=== PATIENT | female | born 1975 | race Caucasian/White ===

== ENCOUNTER 2019-08-04 00:30 | Outpatient (CLI) | payer OTHER, SELFPAY ==
[2019-08-05 08:27] LABS: SARS-CoV-2 RNA PCR Negative
== END 2019-08-04 00:31 | disposition home or self-care (01) ==
LOC: ANHCOVIDDT 00:30
PROVIDERS: PCP Internal Medicine; Visit Provider Internal Medicine Gastroenterology
DX: Z01.818 Encounter for other preprocedural examination (principal); Z11.59 Encounter for screening for other viral diseases
CPT/HCPCS: 87635; C9803; U0003

== ENCOUNTER 2019-08-07 01:22 | Day surgery (SDC) | payer OTHER, SELFPAY ==
[2019-08-03 10:45] VITALS: BMI 31.0
[2019-08-07] MEDS: LACTATED RINGERS 1,000 ML 150 ML IV CONT (07:58)
[2019-08-07 08:08] VITALS: BP 110/75; PULSE 85; RESP 16; TEMP 36.6; O2SAT 98; BMI 31.4
--- NOTE | 2019-08-07 08:38 | P.PNAN_ITS ---
Anes - Initial Pre Proc Eval Procedure: Operation Date: 08/07/19 09:00 Proposed Procedures p Esophagogastroduodenoscopy - John Guzman MD Date/Time: 08/07/19 08:38 Surgeon: John Guzman MD Pre Op Diagnosis: GERD Patient Data Age: 44 Gender: F Height: 1.63 m Weight: 83 kg Last Vital Signs Temp 36.6 C 08/07/19 08:08 Pulse 85 08/07/19 08:08 Resp 16 08/07/19 08:08 BP 110/75 08/07/19 08:08 Pulse Ox 98 08/07/19 08:08 Allergies Allergy/AdvReac Type Severity Reaction Status Date / Time Penicillins Allergy Other Verified 08/07/19 07:52 prochlorperazine Allergy Other Verified 08/07/19 07:52 [From Compazine] Home Medications Medication Instructions Recorded Confirmed Type atorvastatin 40 mg tablet 40 mg PO DAILY 03/17/19 08/07/19 History calcium carbonate 200 mg calcium 200 mg PO DAILY tablet 03/17/19 08/07/19 History (500 mg) chewable tablet cholecalciferol (vitamin D3) 25 25 mcg PO DAILY 03/17/19 08/07/19 History mcg (1,000 unit) capsule lansoprazole 30 mg capsule,delayed 30 mg PO DAILY 03/17/19 08/03/19 History release vitamin B complex 1 tablet PO DAILY 03/17/19 08/03/19 History Multiple Vitamins 1 caplet PO DAILY 08/03/19 08/03/19 History acidophilus-pectin, citrus 1 cap PO DAILY 08/03/19 08/07/19 History [Acidophilus Probiotic] cetirizine [Zyrtec] 10 mg PO DAILY 08/03/19 08/07/19 History escitalopram oxalate [Lexapro] 10 mg PO DAILY 08/03/19 08/07/19 History famotidine 20 mg PO BID 08/03/19 08/07/19 History fluticasone propionate [Flonase 2 spray INTRANASAL DAILY 08/03/19 08/07/19 History Allergy Relief] hydroxyzine HCl 25 mg PO DAILY 08/03/19 08/03/19 History mecobalamin (vitamin B12) [B12 1,000 mcg PO DAILY 05/18/20 05/18/20 History Active] Patient hx anesthesia problems: none Family hx anesthesia problems: none [facility] Past Medical History Medical History (Updated 08/07/19 @ 08:40 by Eulogio Lyons MD) Chronic back pain GERD (gastroesophageal reflux disease) Hyperlipidemia Obesity Pancreatitis Surgical History Surgical History (Updated 03/17/19 @ 10:57 by Karla Bhatia, JORDEN) History of ERCP caused by pancreatitis History of knee replacement right knee 11/1994 and left knee 03/1995 Social History Social History (Updated 03/17/19 @ 10:57 by Karla Bhatia RN) Smoking status: Never smoker Alcohol intake: current Drinks per week: 3 Anes - Eval Final PreProcedure Day of Procedure 08/07/19 08:38 Patient weight: obese Heart: regular rate and rhythm Lungs: clear to auscultation and normal air movement Airway: Mallampati scale class II Neurological: alert and oriented Last oral intake: >/= 8 hours ASA classification: II Emergent: no Anesthetic plan: proceed Anesthesia type and monitoring: general GIVS Informed Consent: The patient's anesthetic plan and its attendant risks and benefits were discussed with the patient/family/POA. Questions were solicited and answers provided to the satisfaction of the patient/family/POA.
--- NOTE | 2019-08-07 08:44 | WPDGICN ---
Assessment and Plan Assessment and plan (1) GERD (gastroesophageal reflux disease): Code(s): K21.9 - Gastro-esophageal reflux disease without esophagitis Status: Acute Assessment and Plan: Patient has ongoing acid reflux. Only partially controlled with famotidine 20 mg p.o. b.i.d.. Patient intolerant of Prilosec because memory issues. Plan is for EGD to assess her long-term acid reflux symptoms. Also to determine best medication for this condition. GI Consult Note Consult date/time: 08/07/19 08:44 HPI: Pattie Prince is a 44 year old female Seen in of evaluation at the request of Dr. Alexandra Tobias. patient has a long standing history of GE reflux disease. Complaints of acid reflux nocturnal regurgitation of been noted. Previously she was on Prilosec daily with good control symptoms. This medication was discontinued 6 months ago because of memory issues. Memory issues have resolved. Over the intervening 6 months she has been on famotidine twice a day. She continues to have epigastric discomfort. No longer has nocturnal regurgitation. But does have epigastric discomfort. No dysphagia but she does have epigastric fullness. Family history is noncontributory. Review of Systems Review of Systems: All systems reviewed & are unremarkable except as noted in HPI and below PMFSH Past Medical History Medical History Chronic back pain GERD (gastroesophageal reflux disease) Hyperlipidemia Obesity Pancreatitis Surgical History Surgical History History of ERCP caused by pancreatitis History of knee replacement right knee 11/1994 and left knee 03/1995 Social History Social History Smoking status: Never smoker Alcohol intake: current Drinks per week: 3 Meds Home Medications and Allergies Home Medications Medication Instructions Recorded Confirmed Type atorvastatin 40 mg tablet 40 mg PO DAILY 03/17/19 08/07/19 History calcium carbonate 200 mg calcium 200 mg PO DAILY tablet 03/17/19 08/07/19 History (500 mg) chewable tablet cholecalciferol (vitamin D3) 25 25 mcg PO DAILY 03/17/19 08/07/19 History mcg (1,000 unit) capsule lansoprazole 30 mg capsule,delayed 30 mg PO DAILY 03/17/19 08/03/19 History release vitamin B complex 1 tablet PO DAILY 03/17/19 08/03/19 History Multiple Vitamins 1 caplet PO DAILY 08/03/19 08/03/19 History acidophilus-pectin, citrus 1 cap PO DAILY 08/03/19 08/07/19 History [Acidophilus Probiotic] cetirizine [Zyrtec] 10 mg PO DAILY 08/03/19 08/07/19 History escitalopram oxalate [Lexapro] 10 mg PO DAILY 08/03/19 08/07/19 History famotidine 20 mg PO BID 08/03/19 08/07/19 History fluticasone propionate [Flonase 2 spray INTRANASAL DAILY 08/03/19 08/07/19 History Allergy Relief] hydroxyzine HCl 25 mg PO DAILY 08/03/19 08/03/19 History mecobalamin (vitamin B12) [B12 1,000 mcg PO DAILY 08/03/19 08/03/19 History Active] Allergies Allergy/AdvReac Type Severity Reaction Status Date / Time Penicillins Allergy Other Verified 08/07/19 07:52 prochlorperazine Allergy Other Verified 08/07/19 07:52 [From Compazine] Vital Signs Vital Signs - 24 hr 08/07/19 08:08 Temperature 36.6 C Pulse Rate 85 Respiratory Rate 16 Blood Pressure 110/75 Pulse Oximetry 98 Exam Narrative: Exam Narrative: Physical exam reveals her to be alert. Oriented x3. She is anicteric. Lungs are clear to auscultation and percussion. Heart is without murmur or extra sounds. Abdominal exam bowel sounds are present soft mild epigastric tenderness is noted. No masses noted. Rectal exam is deferred at this time.
[2019-08-07] MEDS: BENZOCAINE (*SP) 60 ML SPRAY CAN (HURRICAINE) 1 SPRAY MUCOUS MEM (09:16)
[2019-08-07 09:27] VITALS: BP 103/67; PULSE 82; RESP 20; O2SAT 99
[2019-08-07 09:37] VITALS: BP 111/69; PULSE 83; RESP 18; O2SAT 100
[2019-08-07 09:47] VITALS: BP 112/69; PULSE 74; RESP 20; O2SAT 98
[2019-08-07 09:57] VITALS: BP 113/62; PULSE 76; RESP 18; O2SAT 99
== END 2019-08-07 10:25 | disposition home or self-care (01) ==
PROVIDERS: PCP Internal Medicine; Visit Provider Internal Medicine Gastroenterology
PROC: 0DJ08ZZ Inspection of Upper Intestinal Tract, Via Natural or Artificial Opening Endoscopic (ICD-10-PCS; CPT 43235; principal; 2019-08-07 09:00)
DX: K21.9 Gastro-esophageal reflux disease without esophagitis (principal); K31.7 Polyp of stomach and duodenum; E78.5 Hyperlipidemia, unspecified; E66.9 Obesity, unspecified; Z68.31 Body mass index [BMI] 31.0-31.9, adult
CPT/HCPCS: 43239; 43251; 87081; 88305; J2704; J7120

== ENCOUNTER 2019-12-02 15:23 | Emergency (ER) | payer OTHER, SELFPAY ==
--- NOTE | ~2019-12-02 | US_ITS ---
EXAMINATION: US right upper quadrant DATE: 12/02/2019 18:25 INDICATION: Abdominal pain. TECHNIQUE: Multiple grayscale and Doppler ultrasound images of the abdomen were obtained. COMPARISON: None FINDINGS: The visualized portions of the head and body of the pancreas are normal. The liver is linda l without focal lesion. There is normal flow in main portal vein. The gallbladder is contracted and c ontains sludge. No gallstones or gallbladder wall thickening. There was a positive sonographic Mcdonald sign. The common duct is normal and measures 3 mm. IMPRESSION: 1. Gallbladder sludge and positive sonographic Mcdonald sign, but no imaging findings to suggest acute cholecystitis. Reviewed, dictated and finalized at location A. IMPRESSION: 1. Gallbladder sludge and positive sonographic Mcdonald sign, but no imaging find ings to suggest acute cholecystitis.
[2019-12-02 15:52] VITALS: BP 120/77; PULSE 83; RESP 16; TEMP 36; O2SAT 100
[2019-12-02 16:22] LABS: Basophils Percent Auto 0.3 % (0.2-1.2); Eosinophils Absolute Auto 0.1 K/mm3 (0-0.3); Eosinophils Percent Auto 1.6 % (0-4.4); Hematocrit 36.3 % (37.0-47.0); Hemoglobin 12.8 g/dL (12.0-15.0); Immature Granulocyte Absolute 0.01 K/mm3 (0.00-0.031); Immature Granulocyte Percent A 0.1 % (0-0.5); Lymphocytes Absolute Auto 2.41 K/mm3 (0.9-3.2); Lymphocytes Percent Auto 35.7 % (18.3-44.2); Mean Corpuscular HGB Conc 35.3 g/dl (32-36); Mean Corpuscular Hemoglobin 33.7 pg (26-34); Mean Corpuscular Volume 95.5 fl (80-100); Mean Platelet Volume 10.5 fl (7.4-10.4); Monocytes Absolute Auto 0.4 K/mm3 (0.1-0.6); Monocytes Percent Auto 5.2 % (2.6-8.5); Neutrophils Absolute Auto 3.9 K/mm3 (1.3-6.7); Neutrophils Percent Auto 57.1 % (45.5-73.1); Platelet Count Result 255 k/mm3 (150-375); Red Cell Distribution Width 12.7 % (11.5-14.5); White Blood Count 6.8 K/mm3 (4.5-10.0)
[2019-12-02 16:24] LABS: Add Urine Microscopic? NO; Appearance Urine Clear (Clear); Bilirubin Urine Negative (Negative); Blood Urine Negative (Negative); Color Urine Yellow (Yellow); Glucose Urine UA Negative (Negative); Ketones Urine Negative (Negative); Leukocyte Esterase Ur Negative LEU/UL (Negative); Nitrate Urine Negative (Negative); Protein Urine Negative (Negative); Urobilinogen Urine Negative mg/dL (<2.0)
[2019-12-02 16:36] LABS: Alanine Aminotransferase 19 U/L (4-35); Albumin Level 4.4 g/dL (3.5-5.1); Alkaline Phosphatase 79 U/L (38-126); Anion Gap 7 mmol/L (8-16); Aspartate Amino Transferase 25 U/L (14-36); Bilirubin,Total 0.6 mg/dL (0.2-1.3); Blood Urea Nitrogen 7 mg/dL (7-17); Calcium 9.2 mg/dL (8.4-10.2); Carbon Dioxide 26 mmol/L (22-30); Chloride 104 mmol/L (98-107); Estimated CRCL calculation 107 ml/min; Estimated Glomerular Filt Rate > 60; Glucose 90 mg/dL (65-105); Lipase 85 U/L (23-300); Potassium 3.8 mmol/L (3.4-5.0); Sodium 137 mmol/L (137-145)
[2019-12-02 17:43] VITALS: BP 139/79; PULSE 79; RESP 17; O2SAT 99
--- NOTE | 2019-12-02 17:46 | ED.ABDPAIN ---
HPI - Abdominal Pain General Chief Complaint: Abdominal Pain Stated Complaint: upper r abd pain Time Seen by Provider: 12/02/19 17:37 Source: patient Mode of arrival: ambulatory Limitations: no limitations History of Present Illness HPI narrative: Patient is a 44-year-old female who presents with right upper quadrant abdominal pain that is remained constant for 2 days has not taken anything for her symptoms presents in no distress pain does not radiate. Patient does have history of irritable bowel syndrome and has had similar occurrences in the past has not had them in a very long time. Patient does note having had recent normal endoscopy. Patient notes nausea but denies emesis diarrhea or other complaints and presents in no distress Related Data Home Medications Medication Instructions Recorded Confirmed atorvastatin 40 mg tablet 40 mg PO DAILY 03/17/19 08/07/19 calcium carbonate 200 mg calcium 200 mg PO DAILY tablet 03/17/19 08/07/19 (500 mg) chewable tablet cholecalciferol (vitamin D3) 25 25 mcg PO DAILY 03/17/19 08/07/19 mcg (1,000 unit) capsule lansoprazole 30 mg capsule,delayed 30 mg PO DAILY 03/17/19 08/03/19 release vitamin B complex 1 tablet PO DAILY 03/17/19 08/03/19 Multiple Vitamins 1 caplet PO DAILY 08/03/19 08/03/19 acidophilus-pectin, citrus 1 cap PO DAILY 08/03/19 08/07/19 [Acidophilus Probiotic] cetirizine [Zyrtec] 10 mg PO DAILY 08/03/19 08/07/19 escitalopram oxalate [Lexapro] 10 mg PO DAILY 08/03/19 08/07/19 famotidine 20 mg PO BID 08/03/19 08/07/19 fluticasone propionate [Flonase 2 spray INTRANASAL DAILY 08/03/19 08/07/19 Allergy Relief] hydroxyzine HCl 25 mg PO DAILY 08/03/19 08/03/19 mecobalamin (vitamin B12) [B12 1,000 mcg PO DAILY 08/03/19 08/03/19 Active] Allergies Allergy/AdvReac Type Severity Reaction Status Date / Time Penicillins Allergy Other Verified 08/07/19 07:52 prochlorperazine Allergy Other Verified 08/07/19 07:52 [From Compazine] Review of Systems Review of Systems: All systems reviewed & are unremarkable except as noted in HPI and below PMFSH Past Medical History Medical History Chronic back pain GERD (gastroesophageal reflux disease) Hyperlipidemia Obesity Pancreatitis Surgical History Surgical History History of ERCP caused by pancreatitis History of knee replacement right knee 11/1994 and left knee 03/1995 Social History Social History Smoking status: Never smoker Alcohol intake: current Drinks per week: 3 Gender identity (if verbalized by the patient): Female Exam Narrative: Exam Narrative: GENERAL: Well-appearing, well-nourished, and in no acute distress. HEAD: Normocephalic, atraumatic. EYES: PERRLA and EOMI. ENT: Nares clear, no rhinorrhea or epistaxis. Mucous membranes moist. CHEST: Clear to auscultation. No respiratory distress. No wheezes rales or rhonchi HEART: Regular rate and rhythm. No murmur heard. Normal peripheral pulses. ABDOMEN: Soft, right upper quadrant tenderness no rebound or guarding, nondistended EXTREMITIES: Normal range of motion. No edema. SKIN: Warm, dry, no rash. NEURO: No focal deficits. Alert and oriented x3. PSYCH: Normal mood and affect. Course Course Emergency Course: Patient in the room in no distress at this time pain is tolerable felt appropriate for outpatient reevaluation with some improvement with medications Vital Signs Vital signs: Vital Signs Temperature 96.8 F L 12/02/19 15:52 Pulse Rate 83 12/02/19 15:52 Respiratory Rate 16 12/02/19 15:52 Blood Pressure 120/77 12/02/19 15:52 Pulse Oximetry 100 12/02/19 15:52 Temperature 96.8 F L 12/02/19 15:52 Pulse Rate 79 12/02/19 17:43 Respiratory Rate 17 12/02/19 17:43 Blood Pressure 139/79 12/02/19 17:43 Pulse Oximetry 99 12/02/19 17:
[2019-12-02] MEDS: ONDANSETRON INJ 4 MG/2 ML VIAL IV PUSH (17:57)
[2019-12-02] MEDS: FAMOTIDINE 20 MG/2 ML VIAL IV PUSH (17:57)
[2019-12-02] MEDS: SODIUM CHLORIDE 0.9% IV 1,000 ML 999 ML IV CONT (17:57)
[2019-12-02] MEDS: HYOSCYAMINE SULFATE 0.125 MG TABLET PO (17:58)
[2019-12-02] MEDS: MAG HYDROX/AL HYDROX/SIMETH 30 ML UDC PO (19:23)
[2019-12-02] MEDS: LIDOCAINE HCL 2% VISC SOLN 15 ML UDC 20 ML PO (19:23)
[2019-12-02 19:24] VITALS: BP 122/76; PULSE 80; RESP 16; O2SAT 99
== END 2019-12-02 21:13 | disposition home or self-care (01) ==
PROVIDERS: Emergency Medicine; Emergency Provider Emergency Medicine; PCP Internal Medicine
DX: R10.11 Right upper quadrant pain (principal); K21.9 Gastro-esophageal reflux disease without esophagitis; E78.5 Hyperlipidemia, unspecified
CPT/HCPCS: 36415; 76705; 80053; 81003; 81025; 83690; 85025; 96365; 96375; 99284; A9270; J0131; J2405; J7030

== ENCOUNTER 2019-12-04 12:48 | Outpatient (CLI) | payer OTHER, SELFPAY ==
--- NOTE | ~2019-12-04 | NM_ITS ---
EXAMINATION: NM hepatobiliary wo pharm DATE: 12/04/2019 17:40 INDICATION: Biliary colic. COMPARISON: Ultrasound 12/02/2019 TECHNIQUE: 5.2 mCi Tc-99m mebrofenin (Choletec) was administered intravenously. Scintigraphic images of the abdomen were obtained for one hour. Delayed images were obtained at 4 hours. FINDINGS: There is normal clearance of radiotracer from the blood pool. There is homogeneous tracer u ptake by the liver. Activity progresses to the bowel. IMPRESSION: 1. No activity in the gallbladder by 4 hours, consistent with acute cholecystitis. Reviewed, dictated and finalized at location A. IMPRESSION: 1. No activity in the gallbladder by 4 hours, consistent with acute cholecysti tis.
== END 2019-12-04 12:49 | disposition home or self-care (01) ==
PROVIDERS: PCP Internal Medicine; Visit Provider Internal Medicine
DX: K80.50 Calculus of bile duct without cholangitis or cholecystitis without obstruction (principal)
CPT/HCPCS: 78226; A9537

== ENCOUNTER 2019-12-08 09:26 | Outpatient (CLI) | payer OTHER, SELFPAY ==
[2019-12-08 20:03] LABS: SARS-CoV-2 RNA PCR Negative
== END 2019-12-08 09:27 | disposition home or self-care (01) ==
LOC: ANHCOVIDDT 09:27
PROVIDERS: PCP Internal Medicine; Visit Provider Surgery
DX: Z01.812 Encounter for preprocedural laboratory examination (principal); Z20.828 Contact with and (suspected) exposure to other viral communicable diseases
CPT/HCPCS: 87635; C9803; U0003

== ENCOUNTER 2019-12-10 02:14 | Day surgery (SDC) | payer OTHER, SELFPAY ==
[2019-12-08 10:53] VITALS: BMI 30.9
[2019-12-10] VITALS (13 sets, daily range): BP systolic 107–149; BP diastolic 57–75; PULSE 70–109; RESP 12–22; TEMP 36.3; O2SAT 98–100
--- NOTE | 2019-12-10 09:34 | ECG_ITS ---
Measurements Intervals [place] Rate: 76 P: 60 TN: 196 QRS: 32 QRSD: 102 T: 24 QT: 364 QTc: 409 Interpretive Statements SINUS RHYTHM INCOMPLETE RIGHT BUNDLE BRANCH BLOCK NONSPECIFIC T-WAVE ABNORMALITY- ANTEROLAT/INF LEADS BASELINE WANDER- II, III BORDERLINE ECG Electronically Signed On 12-10-2019 11:42:11 CDT by Manuel Olvera D.O.
--- NOTE | 2019-12-10 10:51 | WPDANESEPPF ---
Anes - Initial Pre Proc Eval Procedure: Operation Date: 12/10/19 12:00 Proposed Procedures p Laparoscopic Cholecystectomy with Intraoperative Cholangiogram, Possible Open - Ayan Damian MD Date/Time: 12/10/19 10:51 Surgeon: Ayan Damian MD Pre Op Diagnosis: acute cholecystitis with gallbladder sludge Patient Data Age: 44 Gender: F Height: 5 ft 4 in Weight: 81.65 kg Allergies Allergy/AdvReac Type Severity Reaction Status Date / Time Penicillins Allergy THROAT Verified 12/08/19 10:54 SWELLING prochlorperazine Allergy DYSTONIC Verified 12/08/19 10:54 [From Compazine] REACTION adhesive tape AdvReac SKIN Verified 12/08/19 11:13 IRRITATION Home Medications Medication Instructions Recorded Confirmed Type atorvastatin 40 mg tablet 20 mg PO DAILY 03/17/19 12/08/19 History cholecalciferol (vitamin D3) 25 25 mcg PO DAILY 03/17/19 12/08/19 History mcg (1,000 unit) capsule vitamin B complex 1 tablet PO DAILY 03/17/19 12/08/19 History acidophilus-pectin, citrus 1 cap PO DAILY 08/03/19 12/08/19 History [Acidophilus Probiotic] cetirizine [Zyrtec] 10 mg PO BID 08/03/19 12/08/19 History fluticasone propionate [Flonase 2 spray INTRANASAL DAILY 08/03/19 12/08/19 History Allergy Relief] hydroxyzine HCl 25 mg PO DAILY PRN 08/03/19 12/08/19 History mecobalamin (vitamin B12) [B12 1,000 mcg PO DAILY 08/03/19 12/08/19 History Active] hyoscyamine sulfate [Levsin] 0.125 mg PO QID PRN #10 tablet 12/02/19 12/08/19 Rx Cbd Oil 1 applic TOPICAL DIRECTED PRN 12/08/19 History Vegan Multivitamin 1 tablet PO DAILY 12/08/19 History ciprofloxacin HCl 500 mg tablet 500 mg PO Q12H 12/08/19 12/08/19 History docusate sodium [Colace] 100 mg PO DAILY 12/08/19 12/08/19 History duloxetine 60 mg capsule,delayed 60 mg PO DAILY 12/08/19 12/08/19 History release famotidine 20 mg tablet 10 mg PO DAILY tablet 12/08/19 12/08/19 History multivitamin 1 tablet PO DAILY 12/08/19 12/08/19 History olopatadine 0.2 % eye drops 1 drop EACH EYE DAILY 12/08/19 12/08/19 History ondansetron HCl 4 mg PO Q6H PRN 12/08/19 12/08/19 History pantoprazole 40 mg tablet,delayed 40 mg PO QAM 12/08/19 12/08/19 History release Patient hx anesthesia problems: none Family hx anesthesia problems: none [facility] Past Medical History Medical History Chronic back pain GERD (gastroesophageal reflux disease) Hyperlipidemia Obesity Pancreatitis Surgical History Surgical History History of colonoscopy History of ERCP caused by pancreatitis History of knee replacement right knee 11/1994 and left knee 03/1995 Family History Family History Father Heart disease Bladder cancer Grandparent Heart disease Cerebrovascular accident Kidney disease Grandparent Cancer type unknown Social History Social History Smoking status: Never smoker Alcohol intake: current Drinks per week: 2 Substance use: unknown Gender identity (if verbalized by the patient): Female Spiritual care concerns: No Anes - Eval Final PreProcedure Day of Procedure 12/10/19 10:51 Patient weight: obese Heart: regular rate and rhythm Lungs: clear to auscultation Airway: Mallampati scale class II Neurological: alert and oriented Last oral intake: >/= 8 hours ASA classification: III Emergent: no Anesthetic plan: proceed Anesthesia type and monitoring: general ETT and standard monitoring Informed Consent: The patient's anesthetic plan and its attendant risks and benefits were discussed with the patient/family/POA. Questions were solicited and answers provided to the satisfaction of the patient/family/POA.
[2019-12-10] MEDS: LACTATED RINGERS 1,000 ML 30 ML IV CONT ×3 (10:55→14:27)
[2019-12-10] MEDS: ACETAMINOPHEN 500 MG TABLET 1000 MG PO (11:00)
[2019-12-10] MEDS: KETOROLAC 15 MG/ML VIAL (*BKC) IV PUSH (11:02)
[2019-12-10 11:19] LABS: Alanine Aminotransferase 29 U/L (4-35); Albumin Level 4.6 g/dL (3.5-5.1); Alkaline Phosphatase 65 U/L (38-126); Amylase 53 U/L (30-110); Aspartate Amino Transferase 29 U/L (14-36); Bilirubin,Total 0.7 mg/dL (0.2-1.3); Lipase 66 U/L (23-300)
--- NOTE | 2019-12-10 12:03 | WPDHPUPDATE1 ---
History and Physical Update Update Date/Time: 12/10/19 12:03 History and Physical has been reviewed, including an updated exam of the patient. There are NO changes in the patient's condition. Risks, benefits, and alternatives have been discussed and questions answered. Patient agrees to proceed with procedure.
[2019-12-10] MEDS: CLINDAMYCIN 900 MG/NS 50 ML 900 MG/50 ML PIGGYBACK 50 MG IVPB (12:10)
[2019-12-10] MEDS: BUPIVACAINE/EPINEPHRINE 0.5% 10 ML VIAL 30 ML INFILTRATE (12:43)
--- NOTE | 2019-12-10 13:36 | P.OP_ITS ---
Procedure Note - Detailed Date of procedure: 12/10/19 Pre-op diagnosis: acute cholecystitis with gallbladder sludge Acute on Chronic Cholecystitis with Gall Bladder Sludge. Post-op diagnosis: same Procedure performed: Laparoscopic Cholecystectomy Description of procedure: Patient was seen preoperatively in the holding area and risks, benefits and alternatives confirmed. Patient was taken to the operating room and general anesthesia was induced. A time out was then preformed with the surgery team confirming patient and site of surgery. The abdomen was prepped and draped in the usual sterile fashion. Incision was made just below the umbilicus with an 11 blade knife. I placed 2 stay sutures of O- Vicryl on either side of the mid- line fascia beneath the umbilicus and was then able to slide in the Yeh iqra ralph through the fascial defect into the peritoneum. First under low flow and then under high flow the abdomen was insufflated with carbon dioxide never exceeding a pressure of 14. Three 5 mm trocars were then introduced under direct vision. The following trocars were introduced under direct vision: a 5 mm in the epigastrium and two 5 mm trocars along the right costal margin laterally in the subcostal area. There were significant omental adhesions to the underside of the gallbladder. These were taken down with blunt and sharp dissection using some Bovie cautery for hemostasis. We wer e able to dissect this completely away from the neck of the gallbladder. I then carefully used the L-shaped cautery and the [place] dissector to dissect out the triangle of [place]. I then was able to dissect out both the cystic duct and cystic artery and identify a window of safety. The gall bladder was grasped and the cystic duct and artery were dissected free and clipped with an 5 mm endo-cl ip liquified natural gas specialist. The cystic duct and artery were clipped with use of 2 clips on the patient's side 1 on the gallbladder side utilizing a 5 mm endoclip-liquified natural gas specialist. The cystic duct was then transected. The cystic artery was also transected at this point. The gall bladder was removed using electrocautery and then removed from the abdomen using a large 10 mm grasper via the umbilical incision. The trocars were removed visualizing hemostasis and the remaining gas evacuated. The large trocar site at the umbilicus was closed with use of the 2 stay sutures of 0 Vicryl mentioned above and also a figure of 8 O-Vicryl suture. The 2 stay sutures mentioned above on either side of the fascia were also tied together to help approximate this midline fascia. Further local anesthetic was placed into each incision for postop pain control. The skin incisions were closed with subcuticular suture of 4-0 Monocryl. Surgical glue then was applied to all the incisions. Patient tolerated the procedure well was taken to the recovery room in good condition. Anesthesia: GETA Surgeon: Ayan Damian MD Plant Attendant: Chuy LEONARDO, OR retail event assistant Estimated blood loss (mL): 5 Drains: No Packing: No Pathology: yes (Gallbladder) Complications: No immediate complications Condition: stable Disposition: PACU Findings: A grayish white gallbladder that seemed to have a somewhat thickened wall. There were some omental adhesions to its underside.
[2019-12-10] MEDS: fentaNYL CITRATE INJ (*CRX) 100 MCG/2 ML VIAL 25 MCG IV PUSH ×10 (14:00→16:08)
[2019-12-10] MEDS: ONDANSETRON INJ 4 MG/2 ML VIAL IV PUSH (14:12)
[2019-12-10] MEDS: diphenhydrAMINE HCl INJ 50 MG/ML VIAL 25 MG IV PUSH ×2 (14:53→15:02)
== END 2019-12-10 17:10 | disposition home or self-care (01) ==
PROVIDERS: PCP Internal Medicine; Visit Provider Surgery
PROC: 0FT44ZZ Resection of Gallbladder, Percutaneous Endoscopic Approach (ICD-10-PCS; CPT 47562; principal; 2019-12-10 12:00)
DX: K80.10 Calculus of gallbladder with chronic cholecystitis without obstruction (principal); E78.5 Hyperlipidemia, unspecified; K21.9 Gastro-esophageal reflux disease without esophagitis; M54.9 Dorsalgia, unspecified; G89.29 Other chronic pain; E66.9 Obesity, unspecified; Z68.30 Body mass index [BMI] 30.0-30.9, adult
CPT/HCPCS: 47562; 36415; 80076; 82150; 83690; 87635; 88304; 93005; A9270; C9803; J1100; J1200; J1885; J2250; J2405; J2704; J2710; J3010; J7120; U0003

== ENCOUNTER → 2020-02-01 09:41 | Outpatient (CLI) | payer OTHER, SELFPAY ==
--- NOTE | ~2020-02-01 | XR_ITS ---
XR foot LT min 3V DATE: 02/01/2020 10:16 INDICATION: Left foot pain following a fall TECHNIQUE: 4 views COMPARISON: None FINDINGS: There is slight plantar and posterior calcaneal enthesopathy. No fracture or dislocation, periosteal reaction or bone destruction. IMPRESSION: Slight calcaneal enthesopathy Reviewed, dictated and finalized at location B. [employer]
== END ==
PROVIDERS: PCP Internal Medicine
DX: M79.672 Pain in left foot (principal)
CPT/HCPCS: 73630

== ENCOUNTER → 2020-07-06 09:30 | Outpatient (CLI) | payer OTHER, SELFPAY ==
--- NOTE | ~2020-07-06 | XR_ITS ---
EXAMINATION: XR lumbar spine min 4V DATE: 07/06/2020 10:59 INDICATION: Lumbago TECHNIQUE: Standing anteroposterior and lateral in neutral, flexion and extension views of the lumbar spine, and cone-down lateral view of the lumbosacral junction were obtained. COMPARISON: None. FINDINGS: 7 degrees lumbar levocurvature measured between T12 and L5. 2-3 mm anterolisthesis L4 on L5 which inc reases to 4 mm with flexion and reduces to neutral with extension. L5 vertebral body height appears s lightly decreased relative to the more cephalad lumbar vertebral bodies but without evident sharply a ngulated cortex or linear lucency/sclerosis which is suspicious for chronic compression fracture. Rem aining vertebral body heights are normal. Moderate disc height loss at L4-L5. Mild to moderate lower lumbar facet osteoarthritis. Mild bilateral sacroiliac osteoarthritis. Cholecystectomy clips in right upper quadrant. IMPRESSION: 1. Mild to moderate lower lumbar predominant spondylosis with 2-3 mm anterolisthesis L4 on L5 with mi ld motion with flexion and extension. 2. Possible chronic mild L5 compression fracture. Reviewed, dictated and finalized at location A. IMPRESSION: 1. Mild to moderate lower lumbar predominant spondylosis with 2-3 mm anterolist hesis L4 on L5 with mild motion with flexion and extension. 2. Possible chronic mild L5 compression fracture.
--- NOTE | ~2020-07-06 | MR_ITS ---
EXAMINATION: MR cervical spine wo con DATE: 07/06/2020 10:15 INDICATION: Cervical radiculopathy. TECHNIQUE: Magnetic resonance imaging (MRI) of the cervical spine was performed without intravenous c ontrast. Sequences included sagittal T2-weighted FSE, sagittal STIR FSE, sagittal T1-weighted FSE, ax ial MERGE, and axial T2-weighted FSE. COMPARISON: None FINDINGS: There is mild cervical kyphosis. Vertebral body heights are normal. There is mildly decreas ed disc height at C5-C6. The spinal cord signal intensity is normal. The following disc levels are sp ecifically discussed: C2-C3: The disc does not extend beyond the endplate margin. There is no uncovertebral joint osteoarth ritis. There is severe bilateral facet joint osteoarthritis. There is no neural foraminal stenosis. T here is no central canal stenosis. C3-C4: The disc does not extend beyond the endplate margin. There is no uncovertebral joint osteoarth ritis. There is mild bilateral facet joint osteoarthritis. There is no neural foraminal stenosis. The re is no central canal stenosis. C4-C5: The disc does not extend beyond the endplate margin. There is mild bilateral uncovertebral judy nt osteoarthritis. There is moderate right and mild left facet joint osteoarthritis. There is no neur al foraminal stenosis. There is no central canal stenosis. C5-C6: The disc does not extend beyond the endplate margin. There is mild bilateral uncovertebral judy nt osteoarthritis. There is moderate bilateral facet joint osteoarthritis. There is no neural foramin al stenosis. There is no central canal stenosis. C6-C7: The disc is bulging. There is mild left uncovertebral joint osteoarthritis. There is mild bila teral facet joint osteoarthritis. There is no neural foraminal stenosis. There is no central canal st enosis. C7-T1: The disc does not extend beyond the endplate margin. There is no uncovertebral joint osteoarth ritis. There is moderate bilateral facet joint osteoarthritis. There is mild bilateral neural foramin al stenosis. There is no central canal stenosis. IMPRESSION: 1. Mild cervical spondylosis. Reviewed, dictated and finalized at location B.
== END ==
PROVIDERS: Visit Provider Nurse Practitioner Family
DX: M47.26 Other spondylosis with radiculopathy, lumbar region (principal); M47.22 Other spondylosis with radiculopathy, cervical region
CPT/HCPCS: 72110; 72141

== ENCOUNTER → 2020-12-02 15:49 | Outpatient (CLI) | payer OTHER, SELFPAY ==
--- NOTE | ~2020-12-02 | CT_ITS ---
EXAMINATION: CT brain wo con EXAM DATE: 12/02/2020 16:02 INDICATION: Headache syndrome. Migraines. TECHNIQUE: Spiral CT of the head was performed without contrast. Axial, coronal and sagittal images were reviewed. The dose-length product (DLP) for this examination was 599.57 mGy-cm. The exposure w as tailored according to patient size, and iterative reconstruction (ASIR) was used as additional dos e reduction technique. There is no prior study for comparison. FINDINGS: There is no acute intraparenchymal hemorrhage. No evidence of intraparenchymal brain mass lesion. No evidence of acute infarction. There is no mass effect or midline shift. The ventricles are normal in size. There are no extra-axial collections. There are no acute calvarial fractures. T he orbits are unremarkable. Soft tissue is unremarkable. The visualized sinuses and mastoid air matheus ls are well aerated. IMPRESSION: 1. Unremarkable head CT examination. Reviewed, dictated and finalized at location B.
== END ==
PROVIDERS: PCP Internal Medicine; Visit Provider Nurse Practitioner Adult Health
DX: G44.89 Other headache syndrome (principal)
CPT/HCPCS: 70450

== ENCOUNTER → 2021-05-08 10:28 | Outpatient (CLI) | payer OTHER, SELFPAY ==
--- NOTE | ~2021-05-08 | MR_ITS ---
EXAMINATION: MR brain/brain stem wo/w con EXAM DATE: 05/08/2021 11:40 INDICATION: Headache, right facial pain in the V2 distribution. TECHNIQUE: Multi-sequential, multiplanar MR images of the brain, brainstem, internal auditory canals were obtained without contrast. Whole brain sagittal T1, axial diffusion, gradient echo (T2*), T1, T 2, FLAIR sequences obtained. High resolution coronal 3-D FIESTA, coronal T1 FSE, axial T1 FSPGR of t he internal auditory canals. Patient was then injected with 16 cc Multihance contrast intravenously. Postcontrast axial and coronal T1 weighted whole brain, axial and coronal high resolution T1 IAC seq uences obtained. There is no prior study for comparison. FINDINGS: No evidence of mastoid or middle ear opacification. Prepontine cistern, 5th cranial nerves symmetric and unremarkable. Expected signal within Meckel's caves bilaterally. The 7th/8th cranial n erve complexes are symmetric, normal in course and caliber. No cerebellopontine angle masses. Poste rior fossa unremarkable. There are no areas of restricted diffusion to suggest acute infarction. There is no acute hemorrhage seen on the T2*, a hemosiderin sensitive sequence. No intraparenchymal brain mass. The ventricles a re normal in size. There are no extra-axial collections. Flow voids are seen in the cerebral arteri es on the T2-weighted sequences consistent with their expected patency. The orbits are unremarkable. Soft tissue is unremarkable. There are no areas of abnormal enhancement on the postcontrast image s. IMPRESSION: 1. Unremarkable brain MRI examination. Reviewed, dictated and finalized at location A. R CUTTER
[2021-05-08 11:02] LABS: Estimated Glomerular Filt Rate > 60
== END ==
PROVIDERS: PCP Internal Medicine; Visit Provider Internal Medicine
DX: R51.9 Headache, unspecified (principal)
CPT/HCPCS: 70553; A9577

== ENCOUNTER → 2021-07-06 14:24 | Outpatient (CLI) | payer OTHER, SELFPAY ==
--- NOTE | ~2021-07-06 | XR_ITS ---
EXAMINATION: XR chest 2V DATE: 07/06/2021 14:56 INDICATION: Bronchitis. TECHNIQUE: Frontal and lateral views of the chest were obtained. COMPARISON: Chest 2 views 07/09/2018 FINDINGS: The chest demonstrates clear lungs without pneumonia, pleural effusion, or pneumothorax. Th e heart size is normal. IMPRESSION: 1. No acute cardiopulmonary disease. Reviewed, dictated and finalized at location B.
== END ==
PROVIDERS: PCP Internal Medicine; Visit Provider Internal Medicine
DX: R51.9 Headache, unspecified (principal)
CPT/HCPCS: 71046

== ENCOUNTER 2021-11-10 07:48 | Outpatient (CLI) | payer OTHER, SELFPAY ==
--- NOTE | 2021-11-19 23:11 | WPDHOMESLEEP ---
Sleep Study - Home Unattended Date of Study: 11/10/21 Ordering Provider: Alexandra Tobias MD Interpreting Provider: Brenda Goddard, DO Home Sleep Study Type: Watch PAT Height: 1.63 m Weight: 81.647 kg Body Mass Index: 30.9 Neck Circumference (inches): 13.5 [place]: 15 Reason for Sleep Study Issues with grinding teeth and daytime hypersomnia Sleep History The patient is a 46-year-old female with depression, GERD, irritable bowel syndrome and seasonal allergies that had a sleep study ordered by her primary care for evaluation of sleep apnea. The patient denies awakening from sleep short of breath. She rarely awakens at night with heartburn, belching or cough. She constantly snores loud enough that others complain. She constantly has trouble sleeping when she has a cold. She denies waking up gasping for air throughout the night. She denies having breathing problems at night observed by herself or others. She frequently sweats excessively at night. He denies having heart palpitations or irregular heartbeats during the night. She occasionally falls asleep during the day but never while driving. She denies experiencing loss of muscle tone when extremely emotional. She frequently has trouble at school or work due to sleepiness. She rarely feels unable to move while waking up or falling asleep. She occasionally experiences vivid dreamlike scenes upon awakening or falling asleep. She denies feeling afraid of going to sleep. She rarely has nightmares. She occasionally remembers her dreams. She frequently has thoughts racing through her mind. She frequently feels sad or depressed. She rarely has anxiety. She occasionally has muscular tension. She occasionally notices parts of her body jerk. She rarely kicks during the night. She rarely experiences crawling and aching feelings in her legs. She rarely experiences leg pain during the night. She constantly grinds her teeth during sleep and frequently awakens with morning jaw pain. She is constantly bothered by pain during the day and constantly awakened by pain during the night. She constantly wakes up feeling stiff in the morning. She constantly wakes up with sore achy muscles. She constantly wakes up with pain in neck, spine or other joints. She goes to bed at 8:30 p.m. on weekdays but is unable to fall asleep until 1-2 a.m.. She goes to bed at 8:30 p.m. on weekends but is unable to fall asleep until 3:24 a.m.. She wakes up 7-8 times throughout the night due to pain. She wakes up at 7:30 a.m. on weekdays and at 11:00 a.m. on weekends. She typically gets 6-7 hours of sleep per night. He will stay in bed for 30-60 minutes after waking up in the morning. She currently lives with her and 2 children. She does not consume any caffeinated beverages within 2 hours of bedtime. She does not engage in physical exercise before bedtime. She denies reading and watching television before falling asleep. She will take naps in the afternoon or the evening but they are not refreshing. He drinks 1 caffeinated beverage per day. She drinks 5-6 alcoholic beverages per month. She denies tobacco and recreational drug use. [facility] Past Medical History Medical History Chronic back pain GERD (gastroesophageal reflux disease) Hyperlipidemia Obesity Pancreatitis Surgical History Surgical History History of cholecystectomy History of colonoscopy History of endometrial ablation History of ERCP caused by pancreatitis History of knee replacement right knee 11/1994 and left knee 03/1995 Hx laparoscopic cholecystectomy Family History Family History Father Heart disease Bladder cancer Grandparent Heart disease Cerebrovascular accident Kidney disease Grandparent Cancer type unknown Social History
[2021-11-19 23:22] VITALS: BMI 30.9
== END 2021-11-13 11:27 | disposition home or self-care (01) ==
LOC: ANHCSM 07:49
PROVIDERS: PCP Internal Medicine; Visit Provider Internal Medicine
DX: R40.0 Somnolence (principal); G47.9 Sleep disorder, unspecified
CPT/HCPCS: 95800

== ENCOUNTER 2021-11-23 15:15 | Emergency (ER) | payer OTHER, SELFPAY ==
--- NOTE | ~2021-11-23 | XR_ITS ---
EXAMINATION: XR foot RT min 3V DATE: 11/23/2021 16:33 INDICATION: Right foot pain, initial encounter, dog bite TECHNIQUE: Dorsoplantar, lateral, and 2 oblique views of the right foot were obtained. COMPARISON: None. FINDINGS: There is an acute, traumatic, nondisplaced fracture in the lateral base of the second dista l phalanx which extends to the distal interphalangeal joint. Given history of dogbite, fracture is pr esumed open. No additional fracture is identified. There is mild soft tissue swelling of the second t oe. IMPRESSION: 1. Presumed open, nondisplaced intra-articular fracture in the lateral base of the second distal phal anx. Reviewed, dictated and finalized at location B. IMPRESSION: 1. Presumed open, nondisplaced intra-articular fracture in the lateral base of the second distal phalanx.
[2021-11-23 15:19] VITALS: BP 122/79; PULSE 102; RESP 16; TEMP 36.8; O2SAT 99
--- NOTE | 2021-11-23 16:14 | ED.ANIMALBIT ---
HPI - Animal Bite General Chief Complaint: Animal Bite Stated Complaint: dog bite Time Seen by Provider: 11/23/21 15:53 History of Present Illness HPI narrative: 46-year-old female presented to the emergency room via EMS for multiple dog bites and scratches to her lower extremities. Patient states she was bringing her dog home from the veterinary plan consultant appointment and the dog began fighting with another animal in the home. Patient states she attempted to break up the dog fight. Patient states that she suffered dog bites to bilateral lower extremities, and scratches to her left leg. Related Data Home Medications Medication Instructions Recorded Confirmed acidophilus 100 million 1 cap PO DAILY 08/03/19 12/24/19 cell-pectin, citrus 10 mg capsule (Acidophilus Probiotic) cetirizine 10 mg tablet (Zyrtec) 10 mg PO BID 08/03/19 11/13/21 hydroxyzine HCl 25 mg tablet 25 mg PO DAILY PRN Anxiety 08/03/19 12/24/19 mecobalamin (vitamin B12) 1,000 1,000 mcg PO DAILY 08/03/19 12/24/19 mcg chewable tablet (B12 Active) Vegan Multivitamin 1 tablet PO DAILY 12/08/19 12/24/19 duloxetine 60 mg capsule,delayed 60 mg PO DAILY 12/08/19 11/13/21 release famotidine 20 mg tablet 20 mg PO DAILY 12/08/19 11/13/21 multivitamin 1 tablet PO DAILY 12/08/19 12/24/19 olopatadine 0.2 % eye drops 1 drop ophthalmic (eye) DAILY 12/08/19 12/24/19 acetaminophen 325 mg capsule 325 mg PO Q6H PRN Headache 10/18/21 11/13/21 (Tylenol) calcium carbonate 1,000 tablet PO 10/18/21 mg-magnesium hydroxide 200 mg chewable tablet (Antacid (calcium carb-magnesium hyd)) colestipol 1 gram tablet 1 g PO BID 10/18/21 11/13/21 cyclobenzaprine 15 mg 15 mg PO QHS PRN 10/18/21 capsule,extended release 24 hr dextroamphetamine sulfate 15 mg 15 mg PO BID 10/18/21 capsule,extended release diclofenac sodium 1 % topical gel 2 g topical QID 10/18/21 (Arthritis Pain (diclofenac)) drospirenone (contraceptive) 4 mg 1 tablet PO DAILY 10/18/21 11/13/21 (28) tablet (Slynd) epinephrine 0.1 mg/0.1 mL 0.1 mg IM PRN PRN Anaphylaxis 10/18/21 11/13/21 injection, auto-injector (Auvi-Q) fluticasone propionate 50 2 spray intranasal DAILY 10/18/21 11/13/21 mcg/actuation nasal spray,suspension (Flonase Allergy Relief) gabapentin 100 mg capsule 100 mg PO DAILY 10/18/21 glucosamine [id number] 1 tablet PO DAILY 10/18/21 lexus 1,500 mg-400 unit-100 mg tablet ketamine 10 mg/mL injection 10 mg intranasal ONCE 10/18/21 solution lidocaine 1.8 % topical patch 1 patch topical DAILY 10/18/21 olopatadine 0.1 % eye drops 1 drp EACH EYE BID 10/18/21 (Pataday Twice Daily Relief) onabotulinumtoxinA (cosmetic) 50 200 unit IM ONCE 10/18/21 unit intramuscular solution (Botox Cosmetic) pantoprazole 20 mg tablet,delayed 20 mg PO QHS 10/18/21 11/13/21 release pentoxifylline 400 mg 400 mg PO TID 10/18/21 tablet,extended release resveratrol-quercetin 100 mg-100 tablet PO 10/18/21 mg tablet sodium chloride 0.65 % nasal drops 2 drp intranasal QID PRN 10/18/21 ([place] Saline) carbamazepine 100 mg chewable mg 11/13/21 tablet Allergies Allergy/AdvReac Type Severity Reaction Status Date / Time Penicillins Allergy THROAT Verified 10/18/21 14:38 SWELLING prochlorperazine Allergy DYSTONIC Verified 10/18/21 14:38 [From Compazine] REACTION adhesive tape AdvReac SKIN Verified 10/18/21 14:38 IRRITATION Review of Systems Review of Systems: CONSTITUTIONAL: Denies fever, chills, or sweats. EYES: Denies visual changes, redness, or discharge. ENT: Denies rhinorrhea, congestion, sore throat, or otalgia. CARDIOVASCULAR: Denies chest pain, palpitations, or edema. RESPIRATORY: Denies cough or dyspnea. GASTROINTESTINAL: Denies abdominal pain, nausea, vomiting, or diarrhea. GENITOURINARY: Denies dysuria or hematuria. SKIN: Reports animal bites to bilateral lower extremities, scratches to left lower extremity MUSCULOSKELETAL: [place]
[2021-11-23] MEDS: KETOROLAC (*BKC) 60 MG/2 ML VIAL IM (16:28)
[2021-11-23] MEDS: ONDANSETRON HCL ODT 4 MG TABLET PO (16:37)
[2021-11-23] MEDS: SODIUM CHLORIDE 0.9% IV 1,000 ML 999 ML IV CONT (17:23)
== END 2021-11-23 18:19 | disposition home or self-care (01) ==
PROVIDERS: Emergency Provider Nurse Practitioner Family; PCP Internal Medicine
DX: S71.152A Open bite, left thigh, initial encounter (principal); S71.151A Open bite, right thigh, initial encounter; S81.812A Laceration without foreign body, left lower leg, initial encounter; S91.204A Unspecified open wound of right lesser toe(s) with damage to nail, initial encounter; S92.534A Nondisplaced fracture of distal phalanx of right lesser toe(s), initial encounter for closed fracture; W54.0XXA Bitten by dog, initial encounter; W54.8XXA Other contact with dog, initial encounter
CPT/HCPCS: 73630; 96365; 96372; 99284; A9270; J0696; J1885; J7030

== ENCOUNTER → 2022-01-08 11:40 | Outpatient (CLI) | payer OTHER, SELFPAY ==
--- NOTE | ~2022-01-08 | MM_ITS ---
EXAMINATION: MM screening [facility] BI w mauricio HISTORY: Screening mammogram TECHNIQUE: Craniocaudal and mediolateral oblique 3-D tomosynthesis images were obtained and synthetic 2-D images were generated. CAD analysis was submitted and interpreted. COMPARISON: 07/13/2020, 03/26/2019, 12/06/2017 BREAST PARENCHYMAL COMPOSITION: There are scattered areas of fibroglandular density. FINDINGS: No suspicious mass, calcification, or architectural distortion are identified in either april ast to suggest malignancy. There has been no suspicious interval change. IMPRESSION: 1. No mammographic evidence of malignancy. 2. Recommend routine screening mammography in one year. BI-RADS Category 1: Negative Reviewed, dictated and finalized at location A.
== END ==
PROVIDERS: PCP Internal Medicine; Visit Provider Obstetrics & Gynecology Gynecology
DX: Z12.31 Encounter for screening mammogram for malignant neoplasm of breast (principal)
CPT/HCPCS: 77063; 77067

== ENCOUNTER 2022-03-09 00:12 | Day surgery (SDC) | payer OTHER, SELFPAY ==
[2021-12-08 11:37] VITALS: BMI 31.0
--- NOTE | 2022-01-23 12:15 | PC.NURSE ---
spoke with patient regarding rescheduled procedure date/times. Patient in agreement with these changes. Patient has no questions at this time. Patient denies any changes to health history, allergies, or medications.
[2022-03-09 10:29] VITALS: BP 123/68; PULSE 91; RESP 20; TEMP 36.2; O2SAT 100; BMI 29.8
--- NOTE | 2022-03-09 10:31 | SUR.PREOP ---
pt refused to provide urine for upreg. pt states 'that is not happening. we are not doing that.' anesthesia made aware.
[2022-03-09] MEDS: LACTATED RINGERS 1,000 ML 150 ML IV CONT (10:38)
--- NOTE | 2022-03-09 10:40 | WPDANESEPPF ---
Anes - Initial Pre Proc Eval Procedure: Operation Date: 03/09/22 11:00 Proposed Procedures p Screening Colonoscopy - Pranay Andersen MD Date/Time: 03/09/22 10:40 Surgeon: Pranay Andersen MD Pre Op Diagnosis: family hx colon polyps, neoplasm screening Patient Data Age: 47 Gender: F Height: 1.63 m Weight: 78.9 kg Last Vital Signs Temp 36.2 C L 03/09/22 10:29 Pulse 91 03/09/22 10:29 Resp 20 03/09/22 10:29 BP 123/68 03/09/22 10:29 Pulse Ox 100 03/09/22 10:29 O2 Del Method Room Air 03/09/22 10:29 Allergies Allergy/AdvReac Type Severity Reaction Status Date / Time prochlorperazine Allergy DYSTONIC Verified 03/09/22 10:25 [From Compazine] REACTION adhesive tape AdvReac SKIN Verified 03/09/22 10:25 IRRITATION Home Medications Medication Instructions Recorded Confirmed Type acidophilus 100 million 1 cap PO DAILY 08/03/19 02/27/22 History cell-pectin, citrus 10 mg capsule (Acidophilus Probiotic) cetirizine 10 mg tablet (Zyrtec) 10 mg PO BID 08/03/19 02/27/22 History hydroxyzine HCl 25 mg tablet 25 mg PO DAILY PRN Anxiety 08/03/19 02/27/22 History mecobalamin (vitamin B12) 1,000 1,000 mcg PO DAILY 08/03/19 02/27/22 History mcg chewable tablet (B12 Active) Vegan Multivitamin 1 tablet PO DAILY 12/08/19 02/27/22 History duloxetine 60 mg capsule,delayed 60 mg PO DAILY 12/08/19 02/27/22 History release famotidine 20 mg tablet 20 mg PO DAILY 12/08/19 02/27/22 History multivitamin 1 tablet PO DAILY 12/08/19 02/27/22 History sodium sul 1.479 gram-potas ch See Rx Instructions PO PER PKG DIR 08/29/21 02/27/22 Rx 0.188 gram-magnes sul 0.225 gram #24 tabs tablet (Sutab) acetaminophen 325 mg capsule 325 mg PO Q6H PRN Headache 10/18/21 02/27/22 History (Tylenol) calcium carbonate 1,000 1 tablet PO DAILY 10/18/21 02/27/22 History mg-magnesium hydroxide 200 mg chewable tablet (Antacid (calcium carb-magnesium hyd)) colestipol 1 gram tablet 1 g PO BID 10/18/21 02/27/22 History cyclobenzaprine 15 mg 15 mg PO QHS 10/18/21 02/27/22 History capsule,extended release 24 hr dextroamphetamine sulfate 15 mg 15 mg PO BID 10/18/21 02/27/22 History capsule,extended release diclofenac sodium 1 % topical gel 2 g topical QID 10/18/21 02/27/22 History (Arthritis Pain (diclofenac)) drospirenone (contraceptive) 4 mg 1 tablet PO DAILY 10/18/21 02/27/22 History (28) tablet (Slynd) epinephrine 0.1 mg/0.1 mL 0.1 mg IM PRN PRN Anaphylaxis 10/18/21 02/27/22 History injection, auto-injector (Auvi-Q) fluticasone propionate 50 2 spray intranasal DAILY 10/18/21 02/27/22 History mcg/actuation nasal spray,suspension (Flonase Allergy Relief) gabapentin 100 mg capsule 100 mg PO DAILY 10/18/21 02/27/22 History glucosamine [id number] 1 tablet PO DAILY 10/18/21 02/27/22 History lexus 1,500 mg-400 unit-100 mg tablet lidocaine 1.8 % topical patch 1 patch topical DAILY 10/18/21 02/27/22 History olopatadine 0.1 % eye drops 1 drp EACH EYE BID 10/18/21 02/27/22 History (Pataday Twice Daily Relief) pantoprazole 20 mg tablet,delayed 20 mg PO QHS 10/18/21 02/27/22 History release pentoxifylline 400 mg 400 mg PO TID 10/18/21 02/27/22 History tablet,extended release resveratrol-quercetin 100 mg-100 1 tablet PO DAILY 10/18/21 02/27/22 History mg tablet sodium chloride 0.65 % nasal drops 2 drp intranasal QID PRN Allergy 10/18/21 02/27/22 History ([place] Saline) Symptoms ondansetron 4 mg disintegrating 4 mg PO Q8H #10 tabs 11/23/21 02/27/22 Rx tablet eszopiclone 2 mg tablet (Lunesta) 2 mg PO QHS #30 tabs 01/11/22 02/27/22 Rx Patient hx anesthesia problems: post op nausea/vomiting Family hx anesthesia problems: none Results Review: All pre-operative results and documents have been reviewed as part of the pre-operative evaluation. [facility] Past Medical History Medical History Chroni
--- NOTE | 2022-03-09 10:47 | PM.HPGS ---
History of Present Illness History of Present Illness Consent: Risks, benefits, and alternatives have been discussed and questions answered. Patient agrees to proceed with procedure. Chief complaint: family hx colon polyps, neoplasm screening Narrative: Pattie Carlton is a 47 year old female referred for colon cancer screening. She has a family history of polyps. Review of Systems Review of Systems: All systems reviewed & are unremarkable except as noted in HPI and below PMFSH Past Medical History Medical History Chronic back pain GERD (gastroesophageal reflux disease) Hyperlipidemia Obesity Pancreatitis Surgical History Surgical History History of cholecystectomy History of colonoscopy History of endometrial ablation History of ERCP caused by pancreatitis History of knee replacement right knee 11/1994 and left knee 03/1995 Hx laparoscopic cholecystectomy Family History Family History Father Heart disease Bladder cancer Grandparent Heart disease Cerebrovascular accident Kidney disease Grandparent Cancer type unknown Social History Social History Smoking status: Never smoker Alcohol intake: current Drinks per week: 2 Substance use: never Substance use type: does not use Living arrangements: with family Gender identity (if verbalized by the patient): Female Spiritual care concerns: No Meds Home Medications and Allergies Home Medications Medication Instructions Recorded Confirmed Type acidophilus 100 million 1 cap PO DAILY 08/03/19 02/27/22 History cell-pectin, citrus 10 mg capsule (Acidophilus Probiotic) cetirizine 10 mg tablet (Zyrtec) 10 mg PO BID 08/03/19 02/27/22 History hydroxyzine HCl 25 mg tablet 25 mg PO DAILY PRN Anxiety 08/03/19 02/27/22 History mecobalamin (vitamin B12) 1,000 1,000 mcg PO DAILY 08/03/19 02/27/22 History mcg chewable tablet (B12 Active) Vegan Multivitamin 1 tablet PO DAILY 12/08/19 02/27/22 History duloxetine 60 mg capsule,delayed 60 mg PO DAILY 12/08/19 02/27/22 History release famotidine 20 mg tablet 20 mg PO DAILY 12/08/19 02/27/22 History multivitamin 1 tablet PO DAILY 12/08/19 02/27/22 History sodium sul 1.479 gram-potas ch See Rx Instructions PO PER PKG DIR 08/29/21 02/27/22 Rx 0.188 gram-magnes sul 0.225 gram #24 tabs tablet (Sutab) acetaminophen 325 mg capsule 325 mg PO Q6H PRN Headache 10/18/21 02/27/22 History (Tylenol) calcium carbonate 1,000 1 tablet PO DAILY 10/18/21 02/27/22 History mg-magnesium hydroxide 200 mg chewable tablet (Antacid (calcium carb-magnesium hyd)) colestipol 1 gram tablet 1 g PO BID 10/18/21 02/27/22 History cyclobenzaprine 15 mg 15 mg PO QHS 10/18/21 02/27/22 History capsule,extended release 24 hr dextroamphetamine sulfate 15 mg 15 mg PO BID 10/18/21 02/27/22 History capsule,extended release diclofenac sodium 1 % topical gel 2 g topical QID 10/18/21 02/27/22 History (Arthritis Pain (diclofenac)) drospirenone (contraceptive) 4 mg 1 tablet PO DAILY 10/18/21 02/27/22 History (28) tablet (Slynd) epinephrine 0.1 mg/0.1 mL 0.1 mg IM PRN PRN Anaphylaxis 10/18/21 02/27/22 History injection, auto-injector (Auvi-Q) fluticasone propionate 50 2 spray intranasal DAILY 10/18/21 02/27/22 History mcg/actuation nasal spray,suspension (Flonase Allergy Relief) gabapentin 100 mg capsule 100 mg PO DAILY 10/18/21 02/27/22 History glucosamine [id number] 1 tablet PO DAILY 10/18/21 02/27/22 History lexus 1,500 mg-400 unit-100 mg tablet lidocaine 1.8 % topical patch 1 patch topical DAILY 10/18/21 02/27/22 History olopatadine 0.1 % eye drops 1 drp EACH EYE BID 10/18/21 02/27/22 History (Pataday Twice Daily Relief) pantoprazole 20 mg tablet
[2022-03-09 11:08] VITALS: BP 100/98; PULSE 92; RESP 25; O2SAT 100
[2022-03-09 11:18] VITALS: BP 105/65; PULSE 85; RESP 16; O2SAT 100
[2022-03-09 11:28] VITALS: BP 113/71; PULSE 90; RESP 20; O2SAT 100
== END 2022-03-09 11:52 | disposition home or self-care (01) ==
PROVIDERS: PCP Internal Medicine; Visit Provider Internal Medicine Gastroenterology
PROC: 0DJD8ZZ Inspection of Lower Intestinal Tract, Via Natural or Artificial Opening Endoscopic (ICD-10-PCS; CPT 45378; principal; 2022-03-09 11:00)
DX: Z12.11 Encounter for screening for malignant neoplasm of colon (principal); K57.30 Diverticulosis of large intestine without perforation or abscess without bleeding; Z83.71 Family history of colonic polyps; E78.5 Hyperlipidemia, unspecified; K21.9 Gastro-esophageal reflux disease without esophagitis; E66.9 Obesity, unspecified; Z68.29 Body mass index [BMI] 29.0-29.9, adult
CPT/HCPCS: 45378; J2704; J7120

== ENCOUNTER 2022-06-06 08:25 | Outpatient (CLI) | payer OTHER, SELFPAY ==
--- NOTE | ~2022-06-06 | XR_ITS ---
EXAMINATION: XR UGIAC w barium swallow DATE: 06/06/2022 09:07 INDICATION: Hiatal hernia TECHNIQUE: The patient drank thick barium, gas-producing crystals, and thin barium. Fluoroscopic spot radiographs of the hypopharynx, esophagus, stomach and proximal small bowel were obtained. Fluorosco py exposure time was 1.8 minutes. A total of 901 fluoroscopic images were recorded. Total DAP was 9.5 26 Gycm^2 COMPARISON: None. FINDINGS: The pharynx is symmetric and without evidence of mass lesion or mucosal irregularity. The esophagus i s normal without mass or stricture. Esophageal motility is normal. There is no hiatal hernia. There w as no gastroesophageal reflux with provocative maneuvers. The stomach and proximal small bowel are no rmal. IMPRESSION: 1. Normal esophagram and upper GI study. Reviewed, dictated and finalized at location A.
== END 2022-06-06 08:26 | disposition home or self-care (01) ==
PROVIDERS: PCP Family Medicine; Visit Provider Internal Medicine Gastroenterology
DX: K21.9 Gastro-esophageal reflux disease without esophagitis (principal)
CPT/HCPCS: 74246

== ENCOUNTER 2022-06-20 15:14 | Emergency (ER) | payer OTHER, SELFPAY ==
[2022-06-20 15:37] VITALS: BP 123/55; PULSE 103; RESP 16; TEMP 36.7; O2SAT 100
--- NOTE | 2022-06-20 15:39 | ED.FEMALEGU ---
HPI - Female Genitourinary General Chief complaint: Urogenital-Female Stated complaint: uti Time Seen by Provider: 06/20/22 15:52 Source: patient and RN notes reviewed Mode of arrival: ambulatory Limitations: no limitations History of Present Illness HPI Narrative: 47-year-old female presents concern for 3 day history of malodorous urine. She reports some left low back discomfort. She reports history of urinary tract infections many years ago before she had children, she reports she has not had an infection for about 10 years. She denies frequency, urgency, dysuria. She denies abdominal pain, reports abdominal cramping. She reports some mild nausea without vomiting. She reports she is on control that makes her not have periods, she does have some clear discharge that is typical for her this time of the month. She denies concern for STDs. MD elicited complaint: UTI Related Data Home Medications Medication Instructions Recorded Confirmed cetirizine 10 mg tablet (Zyrtec) 10 mg PO BID 08/03/19 05/31/22 mecobalamin (vitamin B12) 1,000 1,000 mcg PO DAILY 08/03/19 05/31/22 mcg chewable tablet (B12 Active) duloxetine 60 mg capsule,delayed 60 mg PO DAILY 12/08/19 05/31/22 release multivitamin 1 tablet PO DAILY 12/08/19 05/31/22 dextroamphetamine sulfate 15 mg 15 mg PO BID 10/18/21 05/31/22 capsule,extended release epinephrine 0.1 mg/0.1 mL 0.1 mg IM PRN PRN Anaphylaxis 10/18/21 05/31/22 injection, auto-injector (Auvi-Q) fluticasone propionate 50 2 spray intranasal DAILY 10/18/21 05/31/22 mcg/actuation nasal spray,suspension (Flonase Allergy Relief) glucosamine TZi-Q8-Rqcitnhnr 1 tablet PO DAILY 10/18/21 05/31/22 lexus 1,500 mg-400 unit-100 mg tablet olopatadine 0.1 % eye drops 1 drp EACH EYE BID 10/18/21 05/31/22 (Pataday Twice Daily Relief) pantoprazole 20 mg tablet,delayed 20 mg PO QHS 10/18/21 05/31/22 release albuterol sulfate 2.5 mg/3 mL 2.5 mg inhalation Q6H 05/31/22 05/31/22 (0.083 %) solution for nebulization albuterol sulfate 90 mcg/actuation 1 inh inhalation Q4H 05/31/22 05/31/22 aerosol inhaler calcium carbonate 400 mg calcium 400 mg PO DAILY 05/31/22 05/31/22 (1,000 mg) chewable tablet cholecalciferol (vitamin D3) 25 25 mcg PO DAILY 05/31/22 05/31/22 mcg (1,000 unit) capsule colestipol 1 gram tablet 1 g PO ONCE 05/31/22 05/31/22 docosahexaenoic acid 200 mg mg PO 05/31/22 05/31/22 capsule (Algal Greene-3 DHA) fluticasone propionate 110 1 puff inhalation Q12H 05/31/22 05/31/22 mcg/actuation HFA aerosol inhaler (Flovent HFA) magnesium 200 mg tablet 400 mg PO DAILY 05/31/22 05/31/22 naltrexone 50 mg tablet 4.5 mg PO DAILY 05/31/22 05/31/22 vitamin K2 100 mcg capsule 100 mcg PO DAILY 05/31/22 05/31/22 Allergies Allergy/AdvReac Type Severity Reaction Status Date / Time prochlorperazine Allergy DYSTONIC Verified 06/20/22 16:00 [From Compazine] REACTION adhesive tape AdvReac SKIN Verified 06/20/22 16:00 IRRITATION Review of Systems Review of Systems: CONSTITUTIONAL: Denies malaise, chills, sweats, or fever. CARDIOVASCULAR: Denies chest pain, palpitations, or edema. RESPIRATORY: Denies cough or dyspnea. GASTROINTESTINAL: Denies abdominal pain, vomiting, diarrhea. Reports nausea GENITOURINARY: Reports malodorous urine. Denies dysuria, frequency, urgency, suprapubic pressure. Denies flank pain or hematuria. SKIN: Denies rash or itching. MUSCULOSKELETAL: Reports mild left low back pain. Denies myalgia. All systems reviewed & are unremarkable except as noted in HPI and below PMFSH Past Medical History Medical History Allergies Anxiety Chronic back pain Gallbladder disorder GERD (gastroesophageal reflux disease) Headache Hyperlipidemia IBS (irritable bowel syndrome) Obesity Pancreatitis Surgical History Surgical History History of
== END 2022-06-20 16:05 | disposition home or self-care (01) ==
PROVIDERS: Emergency Provider Nurse Practitioner; PCP Internal Medicine
DX: R82.998 Other abnormal findings in urine (principal); K21.9 Gastro-esophageal reflux disease without esophagitis; E78.5 Hyperlipidemia, unspecified; E66.9 Obesity, unspecified; Z68.29 Body mass index [BMI] 29.0-29.9, adult
CPT/HCPCS: 81003; 87086; 87088; 99213; G0463

== ENCOUNTER 2022-11-16 17:16 | Outpatient (CLI) | payer OTHER, SELFPAY ==
--- NOTE | ~2022-11-16 | XR_ITS ---
EXAMINATION: XR ankle RT min 3V DATE: 11/16/2022 17:37 INDICATION: Right ankle pain. TECHNIQUE: 4 views of right ankle were obtained. COMPARISON: Right foot radiographs 11/23/2021 FINDINGS: Bone alignment is normal. No fracture. Joint spaces are normal. There is ankle soft tissue swelling. IMPRESSION: 1. No fracture. Reviewed, dictated and finalized at location E. IMPRESSION: 1. No fracture.
== END 2022-11-16 17:17 | disposition home or self-care (01) ==
PROVIDERS: PCP Family Medicine; Visit Provider Nurse Practitioner
DX: M25.571 Pain in right ankle and joints of right foot (principal)
CPT/HCPCS: 73610

== ENCOUNTER → 2022-12-07 11:47 | Outpatient (CLI) | payer OTHER, SELFPAY ==
--- NOTE | ~2022-12-07 | MR_ITS ---
MRI of the right ankle Clinical history: Pain Technique: Coronal proton-density and proton-density fat-sat images, axial proton-density and proton- density fat-sat images, and sagittal proton-density and proton-density fat-sat images were acquired. Findings: Syndesmotic ligaments are intact. Anterior and posterior talofibular ligaments, and calcane ofibular ligament are intact. Deltoid ligament is intact. Medial flexor tendons, peroneal tendons, and Achilles tendon appear intact. There is a fracture through the base of the anterior process of the calcaneus, with surrounding amorp hous marrow edema. There is suggestion of cortication along the fracture margins, and this could refl ect a nonunited fracture. Minimal subtalar anterior talofibular joint effusions are present. Remainin g bone marrow signals are unremarkable. Plantar fascia is intact. Normal signal preserved in the sinus Tarsi. No soft tissue mass or fluid co llection evident. Impression: Fracture of the anterior process of the calcaneus with surrounding marrow edema. There is apparent co rtication along the fracture margins, and this is possibly a nonunited fracture. Correlation with russell eframe of any prior injury recommended. Reviewed, dictated and finalized at location . Impression: Fracture of the anterior process of the calcaneus with surrounding marrow edema . There is apparent cortication along the fracture margins, and this is possibl y a nonunited fracture. Correlation with timeframe of any prior injury recommen ded.
== END ==
PROVIDERS: PCP Nurse Practitioner; Visit Provider Nurse Practitioner
DX: S92.021A Displaced fracture of anterior process of right calcaneus, initial encounter for closed fracture (principal); X58.XXXA Exposure to other specified factors, initial encounter
CPT/HCPCS: 73721

== ENCOUNTER → 2023-01-10 13:58 | Outpatient (CLI) | payer OTHER, SELFPAY ==
--- NOTE | ~2023-01-10 | MM_ITS ---
EXAMINATION: MM screening jessica BI w mauricio HISTORY: Screening mammogram TECHNIQUE: Craniocaudal and mediolateral oblique 3-D tomosynthesis images were obtained and synthetic 2-D images were generated. Bilateral rotated lateral CC views. CAD analysis was submitted and interp reted. COMPARISON: 01/04/2022, 07/13/2020, 03/26/2019 bilateral screening mammogram examinations BREAST PARENCHYMAL COMPOSITION: There are scattered areas of fibroglandular density. FINDINGS: There is no evidence of suspicious mass, calcification, or architectural distortion to sugg est malignancy in either breast. There has been no suspicious interval change. IMPRESSION: 1. No mammographic evidence of malignancy. 2. Recommend routine screening mammography in one year. BI-RADS Category 1: Negative Reviewed, dictated and finalized at location A.
== END ==
PROVIDERS: PCP Family Medicine; Visit Provider Obstetrics & Gynecology Gynecology
DX: Z12.31 Encounter for screening mammogram for malignant neoplasm of breast (principal)
CPT/HCPCS: 77063; 77067

== ENCOUNTER 2023-06-28 11:13 | Outpatient (CLI) | payer OTHER, SELFPAY | END 2023-06-28 11:14 | disposition home or self-care (01) | LOC: ANHAUDASC 11:14 | PROVIDERS: PCP Family Medicine; Visit Provider Family Medicine | DX: H93.13 Tinnitus, bilateral (principal); H90.3 Sensorineural hearing loss, bilateral | CPT/HCPCS: 92557; 92567 ==

== ENCOUNTER 2024-07-27 14:41 | Outpatient (CLI) | payer OTHER, SELFPAY ==
--- NOTE | ~2024-07-27 | MM_ITS ---
EXAMINATION: MM screening jessica BI w mauricio HISTORY: Screening mammogram TECHNIQUE: Craniocaudal and mediolateral oblique 3-D tomosynthesis images were obtained and synthetic 2-D images were generated. CAD analysis was submitted and interpreted. COMPARISON: 01/10/2023, 01/08/2022, 07/13/2020 BREAST PARENCHYMAL COMPOSITION:Not Dense. There are scattered areas of fibroglandular density. FINDINGS: There are new microcalcifications, loosely grouped, in the slightly upper, slightly inner l eft breast. No mass lesion or distortion evident in either breast. No right breast calcifications. IMPRESSION: New indeterminate left breast microcalcifications. Spot magnification views are recommended for furth er evaluation. BI-RADS Category 0: Incomplete: Needs additional imaging evaluation. Reviewed, dictated and finalized at [facility]. IMPRESSION: New indeterminate left breast microcalcifications. Spot magnification views are recommended for further evaluation. BI-RADS Category 0: Incomplete: Needs additional imaging evaluation.
== END 2024-07-27 14:42 | disposition home or self-care (01) ==
LOC: MICIMG 14:42
PROVIDERS: PCP Family Medicine; Visit Provider Obstetrics & Gynecology Gynecology
DX: Z12.31 Encounter for screening mammogram for malignant neoplasm of breast (principal); R92.8 Other abnormal and inconclusive findings on diagnostic imaging of breast
CPT/HCPCS: 77063; 77067

== ENCOUNTER 2024-08-18 09:23 | Outpatient (CLI) | payer OTHER, SELFPAY ==
--- NOTE | ~2024-08-18 | MM_ITS ---
MM DIAGNOSTIC ADELSO LT W SHANNAN INDICATION: 49-year old female; BI-RADS 0, evaluate new indeterminate left breast microcalcifications . COMPARISON: 07/27/2024 and 01/10/2023 TECHNIQUE: Digital breast magnification CC and ML views of BILATERAL breast were obtained with comput er-aided detection to assist in interpretation of the study. FINDINGS: There are scattered areas of fibroglandular density. A group of round microcalcifications that spans 1.2 cm seen in the superior and slightly medial LEFT breast correlates to the area of concern. IMPRESSION: Suspicious LEFT breast grouped round microcalcifications in the superior medial quadrant. Biopsy is recommended. RECOMMENDATION: Stereotactic biopsy of superior-medial LEFT breast calcifications. BI-RADS 4, SUSPICIOUS Reviewed, dictated and finalized at location B. IMPRESSION: Suspicious LEFT breast grouped round microcalcifications in the sup erior medial quadrant. Biopsy is recommended. RECOMMENDATION: Stereotactic biopsy of superior-medial LEFT breast calcifications. BI-RADS 4, SUSPICIOUS
== END 2024-08-18 09:24 | disposition home or self-care (01) ==
LOC: MICIMG 09:25
PROVIDERS: PCP Family Medicine; Visit Provider Obstetrics & Gynecology Gynecology
DX: R92.8 Other abnormal and inconclusive findings on diagnostic imaging of breast (principal)
CPT/HCPCS: 77061; 77065; G0279

== ENCOUNTER 2024-08-20 14:11 | Outpatient (CLI) | payer OTHER, SELFPAY ==
--- NOTE | ~2024-08-20 | MM_ITS ---
AutoText: MM post biopsy invasive LT, MM stereotactic bx LT, MM stereotactic specimen LT CLINICAL HISTORY: 49-year-old female with suspicious calcifications in the superior medial left breas t presents for stereotactic core needle biopsy procedure. PROCEDURE: Stereotactic breast biopsy. The patient was brought into the stereotactic suite. A time-out procedure was performed. Preliminary images of the left breast were obtained to localize the calcifications. The area was then prepped and draped in the usual sterile fashion. 1% lidocaine was administered to the superficial soft tissues a nd 1% lidocaine with epinephrine was administered to the deeper soft tissues for local anesthesia. A arsenio was made in the skin and the 9 gauge EVIVA biopsy needle was inserted through the arsenio and loc alized to the calcifications with confirmation by mammography. Multiple biopsy specimens were obtain ed. Images of the biopsy specimens demonstrate numerous calcifications corresponding with the suspici ous calcifications seen on the mammogram. A microclip was placed in the biopsy site at the end of the procedure. Pressure was held at the site of biopsy and entry site for the needle until hemostasis wa s achieved. The patient tolerated the procedure well with no immediate post procedure complications. The biopsy specimens were sent to pathology for evaluation. Mammograms of the left breast in the cran iocaudal and true lateral projections demonstrate the microclip in good position. IMPRESSION: Technically successful stereotactic biopsy of left breast calcifications. The patient hayden erated the procedure well with no immediate post procedure complications. Reviewed, dictated and finalized at location [] IMPRESSION: Technically successful stereotactic biopsy of left breast calcifica tions. The patient tolerated the procedure well with no immediate post procedur e complications. IMPRESSION: Technically successful stereotactic biopsy of left breast calcifica tions. The patient tolerated the procedure well with no immediate post procedur e complications.
--- OUTSIDE RECORDS SUMMARY | 2024-08-20 14:56 | XMS_ITS | Encounter Summary ---
Author Organization [facility] Care Team Providers Care Oracle Financial Application Developer Name Role Phone Viki Guardado MD Primary Care Provi opal Monserrat Quintana Unavailable Monserrat Quintana Primary Care Provider [phone] Monserrat Quintana Primary Care Provider [phone] Viki Guardado MD Unavailable [phone] Alexandra Tobias MD Primary Care Provider [phone] Encounter Details Date Type Department Care Team (Latest Contact Info) Description 03/15/2017 Orders Only [facility] CLINCONV Provider, MD Angus [address] [place] [address] Social History Tobacco Use Types Packs/Day Years Used Date Smoking Tobacco: Never Comments Unknown Sex and Gender Information Value Date Recorded Sex Assigned at Not on file Legal Sex Female 7:03 AM MATERIALS MANAGEMENT MANAGER Gender Identity Not on file Sexual Orientation Not on file documented as of this encounter Plan of Treatment Not on file documented as of this encounter Procedures Procedure Name Priority Date/Time Associated Diagnosis Comments COLONOSCOPY - SCAN 03/14/2017 12 :00 AM MATERIALS MANAGEMENT MANAGER documented in this encounter Results * COLONOSCOPY - SCAN (03/14/2017 12:00 AM MATERIALS MANAGEMENT MANAGER) Narrative 03/14/2017 12:00 AM MATERIALS MANAGEMENT MANAGER Ordered by an unspecified provider. us Historical Provider Final Res ult documented in this encounter Visit Diagnoses Not on filedocumented in this encounter Care Teams Oracle Financial Application Developer Relationship Specialty Start Date End Date Viki Guardado MD [address] [place] [address] PCP - General Family Medicine 07/22/18 07/31/18 Monserrat Quintana PA [address] [place] [address] PCP - General Critical Care Med 08/14/18 03/25/19 Monserrat Quintana PA [address] [place] [address] PCP - General 08/01/18 08/13/18 Alexandra Tobias MD [address] [place] [address] PCP - General 03/26/19 Monserrat Quintana PA [address] [place] [address] Physician Line Walker Critical Care Med 07/22/18 02/15/19 Viki Guardado MD [address] [facility], [place] [address] Consulting Physician Family Medicine 02/16/19 documented as of this encounter
--- OUTSIDE RECORDS SUMMARY | 2024-08-20 14:56 | XMS_ITS | Referral Summary ---
Author Organization [address] Address [address] [place] [address] Care Team Providers Care Implement Mechanic Name Role Phone Viki Guardado MD Unavailable [phone] Alexandra Tobias MD Primary Care Provider [phone] Allergies Active Allergy Reactions Criticality Noted Date Comments Penicillins Anaphylaxis High Prochlorperazine Other (See comments) Low Dystonia Medications fluticasone propionate (FLONASE NASL) daily Activ e multivitamin tablet,chewable Take by mouth Active olopatadine (PATADAY) 0.2 % ophthalmic solutionIndication s:Allergic Conjunctivitis Administer 1 drop into both eyes daily 2.5 mL 5 0 Active gevaa-1k-sny-epa-f emeka oil 600-1,200 mg capsule Take by mouth Activ e DULoxetine DR (CYMBALTA) 60 mg capsule Take 1 capsule (60 mg total) by mouth daily Active pantoprazole DR (PROTONIX) 40 mg EC tablet Take 1 tablet (40 mg total) by mouth daily Active naltrexone 4.5 mg capsule Active levomefolate-algal oil (Deplin, algal oil,) 15-90.314 mg capsule 3 Active eszopiclone (LUNESTA) 2 mg tablet Take 1 tablet (2 mg total) by mouth nightly at bedtime Active cyclobenzaprine (FLEXERIL) 10 mg tablet Take 1 tablet (10 mg total) by mouth 3 (three) times a day as needed 1 Active cetirizine (ZyrTEC) 10 mg tablet Take 1 tablet (10 mg total) by mouth 2 (two) times a day Active colestipoL (COLESTID) 1 gram tablet every 12 hours 2 Active acetaminophen (TYLENOL) 325 mg tablet Take 2 tablets (650 mg total) by mouth every 4 (four) hours as needed 1 Active buPROPion XL (WELLBUTRIN XL) 300 mg 24 hr tablet Take 1 tablet (300 mg total) by mouth every morning 4 Active EPINEPHrine (Auvi-Q) 0.3 mg/0.3 mL auto-injection syringe Inject 0.3 mL (0.3 mg total) into the muscle as instructed 1 Active fenofibrate (TRIGLIDE) 160 mg tablet Take 1 tablet (160 mg total) by mouth daily 4 Active levomefolate calcium 15 mg tablet Take 15 mg by mouth daily Active ibuprofen (ADVIL,MOTRIN) 600 mg tablet Take 1 tablet (600 mg total) by mouth every 6 (six) hours as needed Active oxyBUTYnin chloride 2.5 mg tablet 4 Active rhubarb root extract (ESTROVEN CMPLT MENOPAUSE RLF ORAL) 3 Active Nurtec ODT tablet,disintegrat ing DISSOLVE 1 TABLET ON THE TONGUE DAILY NEEDED FOR MIGRAINE DIRECTED [address] (CYMBALTA) 30 mg capsule Take 1 capsule (30 mg total) by mouth daily 4 Active norethindrone-ethi nyl estradiol-iron (Loestrin Fe 1.08/14, 28-Day,) 1.5 mg-30 mcg per tabletIndications: Perimenopause Take 1 tablet by mouth daily Skip placebos 84 tablet 3 5 026 Active Active Problems Problem Noted Date Diagnosed Date Perimenopause 04/01/2024 Assessment & Plan (04/01/2024 2:54 PM AREA FORESTER): Discussed the menopause transition and typical symptoms. We discussed some of the typical symptoms, irregular bleeding, VMS, mood changes, fatigue, sleep disruption, and brain fog. We discussed the clear indications for hormone therapy and that estrogen therapy is the most effective treatment for vasomotor symptoms (hot flashes and night sweats). Non-hormonal therapies are an option for patients who have contraindications to HT or make a personal choice not to use HT. These therapies are not as effective as estrogen, however many may provide relief. We also discussed that low dose CHC may help with bleeding, provide contraception and relieve VMS. LNG IUD can provide endometrial protection, treat HMB and contraception. She elected to proceed with continuous CHC management. Rx sent to pharmacy. She was advised to allow 8 weeks to assess symptom response. [facility] [place] and ACOG handouts provided. Questions answered. Allergic rhinitis 04/09/2019 Nasal septal deviation 04/09/2019 Overview (04/09/2019): To ENT Annual physical exam 02/26/2019 Assessment & Plan (02/26/2019 1:26 PM AREA FORESTER): Exercise 5 days a week, 30 mins per day recommended. Eat a heart healthy diet consisting of good, healthy protein (eggs, nuts, peanut butter, chicken, fish, turkey, less pork/beef), lots of vegetables, less carbohydrates and less sugar. Annual physical recommended. PAP- 2017 nml neg HPV, repeat 2021 Mamm- ordered 02/26/19 Dyspepsia 02/18/2019 History of obesity 09/12/2018 Cough 07/22/2018 Assessment & Plan (07/22/2018 9:44 AM CDT): Will stop flovent Will start symbicort Monitor symptoms Check pft's Shortness of breath 07/22/2018 Assessment & Plan (08/06/2018 2:35 PM CDT): PFTs, CXR both WNL PE WNL FH + CAD father at 51. Will check echo, and refer for cardiology evaluation Stop symbicort If testing is normal, consider anxiety as the etiology F/u 4 weeks If worsens, or chest pain occurs then she should present to the ER. She verbalized understanding. Assessment & Plan (07/22/2018 9:43 AM CDT): Chest xray without pathology Will check PFT's Will stop flovent Start symbicort Monitor symptoms Follow up with Monserrat after tests are complete Call for questions or concerns Anxiety 07/22/2018 Assessment & Plan (08/06/2018 2:36 PM CDT): Unchanged. Has a counseling appt tomorrow. Assessment & Plan (07/22/2018 9:56 AM CDT): Hydroxyzine as needed Vitamin D insufficiency 05/20/2017 Assessment & Plan (08/06/2018 2:37 PM CDT): Taking 2,000iu vit d3 per day. Pure hypercholesterolemia 03/19/2017 Assessment & Plan (08/06/2018 2:37 PM CDT): Lipid abnormalities are unchanged. Nutritional counseling was provided. Lipids will be reassessed, will likely need to treat with a statin. Pt has so far not made any lifestyle changes. Irritant dermatitis 02/25/2017 Sensitive skin 10/04/2016 Closed fracture of lumbar vertebra 09/16/2008 Resolved Problems Problem Noted Date Diagnosed Date Resolved Date Severe episode of recurrent major depressive disorder, without psychotic features 07/22/201806/2018 Assessment & Plan (08/06/2018 2:36 PM CDT): Psychological condition is unchanged. Regular aerobic exercise. Referral to psychological counseling. Psychological condition will be reassessed in 4 weeks. Discussed actions/SE of anxiety and depression medications. May feel worse before feeling better. The pharmacologic and nonpharmacologic treatment of anxiety/depression were discussed with the patient. Included was a discussion of the current treatment regimens and their proposed mechanism of action concerning brain chemistry. Discussed the role of counseling as an adjunct to medications should we agree to pursue this. The patient denies suicidal or homicidal ideation and should this change, they agreed to inform us immediately or seek medical attention in the emergency room setting. She declines treatment at this time. Assessment & Plan (07/22/2018 9:55 AM CDT): Patient reiterated no suicidal thoughts at this time; contact 911 and go to the ER if becomes suicidal; take medication as directed; discussed side effects of medication with patient; encouraged healthy diet and exericise; encouraged patient to see a counselor, use support structures you have in place, consider meditation-look at Calm teresa, and try to work on healthy sleep habits -effexor 37.5 mg daily Adjustment disorder 05/20/2017 02/19/20 19 Urinary tract infection 11/07/200906/2018 Immunizations Immunization Administration Dates Next Due Influenza, Quadrivalent, Spl it, Preservative Free, Intramuscular 02/26/2019 Tdap 02/26/2019 Social History Tobacco Use Types Packs/Day Years Used Date Smoking Tobacco: Never Smokeless Tobacco: Never Tobacco Cessation:Counseling Given: Not Answered Alcohol Use Standard Drinks/Week Comments Yes 0 (1 standard drink = 0.6 oz pur e alcohol) AUDIT-C Answer Date Recorded Q1: How often do you have a drink containing alc ohol? 2-4 times a month 05/15/2023 Q2: How many drinks containi ng alcohol do you have on a typical day when you are drinking? 1 or 2 05/15/2023 Q3: How often do you have si x or more drinks on one occasion? Never 05/15/2023 PHQ-2 Answer Date Recorded PHQ-2 Score 0 02/26/2019 Comments No Sex and Gender Information Value Date Recorded Sex Assigned at Not on file Legal Sex Female 7:03 AM AREA FORESTER Gender Identity Not on file Sexual Orientation Not on file Last Filed Vital Signs Vital Sign Reading Time Taken Comments Blood Pressure 110/74 04/01/2024 2:16 PM AREA FORESTER Pulse 77 04/21/2019 1:07 PM AREA FORESTER Temperature 36.3 C (97.4 F) 04/21/2019 1:07 PM AREA FORESTER Respiratory Rate 16 02/26/2019 10:12 AM AREA FORESTER Oxygen Saturation 99% 04/21/2019 1:07 PM AREA FORESTER Inhaled Oxygen Concentration - - Weight 87.2 kg (192 lb 3.2 oz) 04/01/2024 2:16 P M AREA FORESTER Height 162.6 cm (5' 4.02) 04/01/2024 2:16 PM CS T Body Mass Index 32.97 04/01/2024 2:16 PM AREA FORESTER Plan of Treatment Not on file Procedures Procedure Name Priority Date/Time Associated Diagnosis Comments SCREENING MAMMOGRAM BILATERAL W PUMA 07/13/2020 1:07 PM CDT HM PAP SMEAR WITH HPV Routine 10/25/2016 from Last 3 Months or Most Recently Relevant to Health Maintenance Results * Screening Mammogram Bilateral W [place] (07/13/2020 1:07 PM CDT) Anatomical Region Laterality Modality Breast Bilateral Mammography 07/13/2020 1:26 PM CDT Narrative 07/13/2020 2:00 PM CDT Patient Name: PATTIE PRINCE Dr: Alexandra Tobias MD D.O.B: 1975 Exam Date: 07/13/20 1307 Age: 45 Sex: Female MR#: [id number] Loc: RADIOLOGY REPORT Order #[id number] [facility] Andrew Bilat Screening 3D Signed - MG BILATERAL DIGITAL SCREENING MAMMOGRAM 3D/2D WITH MEDIOLATERAL OBLIQUE CRANIOCAUDAL: 07/13/2020 The study was acquired using full field digital technology and interpreted from soft copy. 2D digital mammographic views, as well as 3D digital tomosynthesis were performed in the CC and MLO projections. CLINICAL: Routine mammogram. Patient denies any problems. Two paternal aunts with breast cancer. No personal history of breast cancer. COMPARISONS: Comparison is made to exams dated: 03/26/2019 mammogram, 12/06/2017 mammogram, and 04/10/2017 mammogram - [facility]. BREAST TISSUE: The tissue of both breasts is heterogeneously dense, which may obscure small masses. FINDINGS: No significant masses, calcifications, or other findings are seen in either breast. There has been no significant interval change. IMPRESSION: BI-RAD 1 NEGATIVE There is no mammographic evidence of malignancy. A 1 year screening mammogram is recommended. The patient has been or will be contacted. We recommend annual screening mammography for women at average risk of breast cancer beginning at age 40, based on guidelines of the [place] [employer] (ACR Practice Parameter for the Performance of Screening and Diagnostic Mammography) and [place] [employer]. For women with an elevated risk of breast cancer, please refer to the ACR Practice Parameter for specific screening recommendations. The patient will be entered into a reminder system with a target due date of 1 year for her next screening exam. Electronically signed by: Vlad diaz/sofy:07/13/2020 14:00:31 Glued Wood Tester: Gabriela SHINE(R)(M), [facility] letter sent: Normal Exam Reading location: BI-RADS: 1 Negative REPORT ELECTRONICALLY SIGNED IN OTHER VENDOR SYSTEM Resulting Agency Comment O Procedure Note Vlad Thornton MD - 07/13/2020 Patient Name: PATTIE PRINCE Dr: Alexandra Tobias MD D.O.B: 1975 Exam Date: 07/13/20 1307 Age: 45 Sex: Female MR#: [id number] Loc: RADIOLOGY REPORT Order #[id number] [facility] Andrew Bilat Screening 3D Signed - MG BILATERAL DIGITAL SCREENING MAMMOGRAM 3D/2D WITH MEDIOLATERAL OBLIQUE CRANIOCAUDAL: 07/13/2020 The study was acquired using full field digital technology andinterpreted from soft copy. 2D digital mammographic views, as well as 3D digital tomosynthesis were performed in the CC and MLO projections. CLINICAL: Routine mammogram. Patient denies any problems. Two paternalaunts with breast cancer. No personal history of breast cancer. COMPARISONS: Comparison is made to exams dated: 03/26/2019 mammogram,12/06/2017 mammogram, and 04/10/2017 mammogram - [facility]. BREAST TISSUE: The tissue of both breasts is heterogeneously dense, whichmay obscure small masses. FINDINGS: No significant masses, calcifications, or other findings areseen in either breast. There has been no significant interval change. IMPRESSION: BI-RAD 1 NEGATIVE There is no mammographic evidence of malignancy. A 1 year screeningmammogram is recommended. The patient has been or will be contacted. We recommend annual screening mammography for women at average risk ofbreast cancer beginning at age 40, based on guidelines of the [employer] [employer] (ACR Practice Parameter for the Performance of Screening and Diagnostic Mammography) and [place] [employer]. For women with an elevated risk of breast cancer, pleaserefer to the ACR Practice Parameter for specific screening recommendations. The patient will be entered into a reminder system with a target due dateof 1 year for her next screening exam. Electronically signed by: Vlad Gotti rl/sofy:07/13/2020 14:00:31 Glued Wood Tester: Gabriela CUTLER)([place]), [facility] letter sent: Normal Exam Reading location: BI-RADS: 1 Negative REPORT ELECTRONICALLY SIGNED IN OTHER VENDOR SYSTEM Alexandra Tobias MD IMG MAMMO PROCEDURES Final Result * PAP SMEAR WITH HPV (10/25/2016) Pap smear Normal Historical Provider HEALTH MAINTENANCE Final Result from Last 3 Months or Most Recently Relevant to Health Maintenance Insurance [facility]PPO Address: [place] [address] [facility] CHOICE PLUS [facility] CHOICE PLUS [facility] H[facility]/PPO Address: [address] [address] [place] [id number] Care Teams Implement Mechanic Relationship Specialty Start Date End Date Alexandra Tobias MD [address] [place] [address] PCP - General 03/26/19 Viki Guardado MD [address] [place] [address] Consulting Physician Family Medicine 02/16/19
--- OUTSIDE RECORDS SUMMARY | 2024-08-20 14:56 | XMS_ITS | Clinical Summary ---
Author Organization [facility] Administrative Offices Address [address] [place] [address] Care Team Providers Care House Wrecker Name Role Phone Dariel Rahman MD Primary Care Prov ider Unavailable Allergies Active Allergy Reactions Criticality Noted Date Comments Adhesive Tape-Silicones Rash Low 03/19/2023 Prochlorperazine Other (See Comments) Uncontrolled movement Medications DULoxetine (CYMBALTA) 60 mg Capsule, Delayed Release(E.C.) Take 60 mg by mouth daily at bedtime. 03/07/20 Active pantoprazole (PROTONIX) 20 mg Tablet, Delayed Release (E.C.) Take 20 mg by mouth daily at bedtime. Active OTHER Provider please include Medication name, dose, route and frequency. Botox injection every three months with dentist for treatment of TMJ. Last dose 02/18/23 Active EPINEPHRINE INJECTION by Injection route. Environmental Allergies Active ibuprofen (MOTRIN) 600 mg tablet Take 600 mg by mouth every 6 hours as needed for Pain, Mild. Usually just once a day Active cetirizine (ZyrTEC) 10 mg tablet Take 10 mg by mouth 2 times daily. Active fluticasone propionate (FLONASE) 50 mcg/spray [place], Suspension nasal inhaler Administer 2 Sprays in each nostril daily. Active L-methylfolate (DEPLIN) 15 mg Tablet Take 15 mg by mouth daily at bedtime. Active blue-green algae (SPIRULINA MISC) Take 1 Capsule by mouth daily. Active OTHER Provider please include Medication name, dose, route and frequency Topical Pain cream including Ketamine, gabapentin, flexeril, Voltaren, ibuprofen and lidocaine. Active OTHER Administer 1 Drop in both eyes daily. Provider please include Medication name, dose, route and frequency Over the counter, Pataday allergy eye drops Active sodium chloride (OCEAN) 0.65 % Aerosol, Diamond Point Administer 1 [place] in each nostril PRN for Allergies. Active OTHER Take 1 Tablet by mouth daily. Provider please include Medication name, dose, route and frequency SPIRULUNA Supplment. One tablet includes Iron 1.4 mg, Vitamin A 80 mcg, Vitamin c 3 mg Active OTHER Take 1 Tablet by mouth daily. Provider please include Medication name, dose, route and frequency VEGAN OMEGA 3 OIL. 1 tablet daily Active OTHER Take 1 Tablet by mouth daily. Provider please include Medication name, dose, route and frequency 5 METHS SUPPLEMENT includes riboflavin 12.5 mg, niacin 10 mg, B6 10 mg B12 500 mcg, biotin 500 mg, Calcium, D3 10 mg, Magnesium 4 mg, Choline 10 mg, artichoke 50 mg Active OTHER Provider please include Medication name, dose, route and frequency ORAL SPRAY includes Vitamin d3 25 mcg, K2 120 mcg per spray. Uses 4 sprays to each cheek equalling 8 sprays orally per day. Active CALCIUM CITRATE ORAL Take 1,000 mcg by mouth daily. Active Zinc Sulfate 66 mg Tablet Take 15 mcg by mouth daily. Active MAGNESIUM CITRATE ORAL Take 1 Tablet by mouth daily. Active CHOLECALCIFEROL, VITAMIN D3, ORAL Take 600 Int'l Units/1.7m2 by mouth daily. Active drospirenone (SLYND ORAL) Take 4 mg by mouth daily at bedtime. Active cyclobenzaprine (FLEXERIL) 10 mg tablet Take 10 mg by mouth 3 times daily as needed. Active OTHER Take 1 Capsule by mouth daily. Iron builder supplement containing -iron 26 mg iron, B12 30 mcg, vit C 15 mg, folate as folic acid 680mcg Active eszopiclone (LUNESTA) 2 mg Tablet Take 2 mg by mouth nightly as needed for Insomnia. Active oxyCODONE (ROXICODONE) 5 mg tabletIndication s:Elective procedure for unacceptable cosmetic appearance Take 1 Tablet (5 mg) by mouth every 4 hours as needed for Pain. Max Daily Amount: 30 mg 20 Tablet 03/30/2023 1:13 PM IMMIGRATION OFFICER 03/28/19 24 Active gabapentin (Neurontin) 300 mg capsule Take 1 Capsule (300 mg) by mouth 2 times daily. 30 Capsule 03/30/2023 1:13 PM IMMIGRATION OFFICER 03/28/19 24 Active Syringe with Needle, Disp, (BD Luer-Akshat Syringe) 3 mL 25 x 5/8 Syringe Use as directed for subcutaneous heparin injections. 14 Each 03/30/2023 1:13 PM IMMIGRATION OFFICER 03/28/19 24 Active Social History Tobacco Use Types Packs/Day Years Used Date Smoking Tobacco: Never Tobacco Cessation:Counseling Given: Not Answered Alcohol Use Standard Drinks/Week Comments Not Currently 0 (1 standard drink = 0.6 oz pur e alcohol) Feeling Safe Answer Date Recorded Are you in a relationship wi th someone who hurts you emotionally and/or physically? No 03/28/2023 Food Insecurity Answer Date Recorded Social/Environmental Concerns No concerns Transportation Needs Answer Date Record ed Social/Environmental Concerns No concerns Housing Stability Answer Date Recorded Social/Environmental Concerns No concerns Utility Needs Answer Date Recorded Social/Environmental Concerns No concerns Comments No Sex and Gender Information Value Date Recorded Sex Assigned at Not on file Legal Sex Female 4:22 AM IMMIGRATION OFFICER Gender Identity Not on file Sexual Orientation Not on file Last Filed Vital Signs Vital Sign Reading Time Taken Comments Blood Pressure 98/48 03/31/2023 8:58 AM IMMIGRATION OFFICER Pulse 96 03/31/2023 8:58 AM IMMIGRATION OFFICER Temperature 36.8 C (98.3 F) 03/31/2023 8:58 AM IMMIGRATION OFFICER Respiratory Rate 19 03/31/2023 8:58 AM IMMIGRATION OFFICER Oxygen Saturation 89% 03/31/2023 8:58 AM IMMIGRATION OFFICER Inhaled Oxygen Concentration - - Weight 75.8 kg (167 lb) 03/28/2023 5:53 AM IMMIGRATION OFFICER Height 163.2 cm (5' 4.25) 03/22/2023 10:[address] Body Mass Index 28.44 03/22/2023 10:44 AM IMMIGRATION OFFICER Plan of Treatment Health Maintenance Due Date Last Done Comments HEPATITIS B VACCINES (1 of 3 - 19+ 3-dose series) 02/08/1996 HPV/Cotest (21-29) 1998 CERVICAL CANCER SCREENING 2007 HPV/Cotest (30-65) 2007 PAP SMEAR 2007 BREAST CANCER SCREENING 07/13/2021 07/14/19 21, 03/26/2019, 12/06/2017, Additional history exists COLORECTAL SCREENING 2022 Colorectal Cancer Screening 2022 FIT-DNA Q 3 years 2022 FIT/FOBT Q 1 year 2022 Flex Sig/CT Colonography Q 5 years 2022 INFLUENZA VACCINE (#1) 2023 02/26/2019 DTAP/TDAP/TD VACCINES (2 - T d or Tdap) 02/26/2029 02/26/2019 Insurance RX [employer] RX Member Subscriber Plan / Payer (Ef fective 2023-Present) Name:Pattie Prince Relation to Subscriber:Self Name:Pattie Prince Subscriber ID:Not on file Payer ID:Not on file Group ID:[id number] Type:RX Commercial Address: [address] Advance Directives For more information, please contact: [phone] * Full Code (Latest Code Status on File) Date Activated Date Inactivated Comments 03/28/2023 3:07 PM 03/31/2023 6:08 PM Care Teams House Wrecker Relationship Specialty Start Date End Date Dariel Rahman MD PCP - General 05/15/12 Brenda Goddard [address], [place] [address] 03/19/23
--- OUTSIDE RECORDS SUMMARY | 2024-08-20 14:56 | XMS_ITS | Encounter Summary ---
Author Organization [facility] Address [address] [place] [address] Care Team Providers Care Field Map Editor Name Role Phone Dariel Rahman MD Primary Care Prov ider Unavailable Encounter Details Date Type Department Care Team (Late st Contact Info) Description 02/23/2004 Outpatient Historical [facility] [address] [place] [id number] Franko Borja Social History Tobacco Use Types Packs/Day Years Used Date Smoking Tobacco: Never Assessed Comments Unknown Sex and Gender Information Value Date Recorded Sex Assigned at Not on file Legal Sex Female 4:22 AM EARLY CHILDHOOD ASSOCIATE TEACHER Gender Identity Not on file Sexual Orientation Not on file documented as of this encounter Plan of Treatment Not on file documented as of this encounter Visit Diagnoses Not on filedocumented in this encounter Care Teams Field Map Editor Relationship Specialty Start Date End Date Dariel Rahman MD PCP - General 05/15/12 Brenda Goddard [address], [place] [address] 03/19/23 documented as of this encounter
--- OUTSIDE RECORDS SUMMARY | 2024-08-20 14:56 | XMS_ITS | Encounter Summary ---
Author Organization [facility] Facility Care Team Providers Care Dog Raiser Name Role Phone Viki Guardado MD Primary Care Provi opal Monserrat Quintana Unavailable Monserrat Quintana Primary Care Provider [phone] Monserrat Quintana Primary Care Provider [phone] Viki Guardado MD Unavailable [phone] Alexandra Tobias MD Primary Care Provider [phone] Encounter Details Date Type Department Care Team (Latest Contact Info) Description 12/24/2017 Orders Only [facility]INCONV Provider, MD Angus [address] [place] [id number] Social History Tobacco Use Types Packs/Day Years Used Date Smoking Tobacco: Never Comments Unknown Sex and Gender Information Value Date Recorded Sex Assigned at Not on file Legal Sex Female 7:03 AM HAM MARKER Gender Identity Not on file Sexual Orientation Not on file documented as of this encounter Plan of Treatment Not on file documented as of this encounter Procedures Procedure Name Priority Date/Time Associated Diagnosis Comments SCAN - LABS 12/24/2017 12:00 AM CDT documented in this encounter Results * SCAN - LABS (12/24/2017 12:00 AM CDT) Narrative 12/24/2017 12:00 AM CDT Ordered by an unspecified provider. us Historical Provider Final Res ult documented in this encounter Visit Diagnoses Not on filedocumented in this encounter Care Teams Dog Raiser Relationship Specialty Start Date End Date Viki Guardado MD [address] [facility] [place] [address] PCP - General Family Medicine 07/22/18 07/31/18 Monserrat Quintana PA [address] [facility] [place] [address] PCP - General Critical Care Med 08/14/18 03/25/19 Monserrat Quintana PA [address] [facility] [place] [address] PCP - General 08/01/18 08/13/18 Alexandra Tobias MD [address] [facility] [place] [address] PCP - General 03/26/19 Monserrat Quintana PA [address] [place] [address] Physician Freight Claim Investigator Critical Care Med 07/22/18 02/15/19 Viki Guardado MD [address] [facility] [place] [address] Consulting Physician Family Medicine 02/16/19 documented as of this encounter
--- OUTSIDE RECORDS SUMMARY | 2024-08-20 14:56 | XMS_ITS | Clinical Summary ---
Author Organization [address] Address [address] [place] [id number] Care Team Providers Care Paralegal Secretary Name Role Phone Viki Guardado MD Unavailable [phone] Alexandra Tobias MD Primary Care Provider [phone] Allergies Active Allergy Reactions Criticality Noted Date Comments Penicillins Anaphylaxis High Prochlorperazine Other (See comments) Low Dystonia Medications fluticasone propionate (FLONASE NASL) daily Activ e multivitamin tablet,chewable Take by mouth Active olopatadine (PATADAY) 0.2 % ophthalmic solutionIndication s:Allergic Conjunctivitis Administer 1 drop into both eyes daily 2.5 mL 5 0 Active [id number]-epa-f emeka oil 600-1,200 mg capsule Take by [...] 04/01/2024 Assessment & Plan (04/01/2024 2:54 PM EVENT LIGHTING SPECIALIST): Discussed the menopause transition and typical symptoms. [...] 02/26/2019 Assessment & Plan (02/26/2019 1:26 PM EVENT LIGHTING SPECIALIST): Exercise 5 days a week, 30 mins [...] it, Preservative Free, Intramuscular 02/26/2019 Tdap 02/26/2019 Surgical History Surgery Date Site/Laterality Comments KNEE SURGERY Knee Surgery - (Added by TW Conv) ENDOMETRIAL ABLATION 01/16/2017 - 02/14/2017 COLONOSCOPY 03/14/2017 ERCP 03/18/2005 - 04/17/2005 BILATERAL KNEE ARTHROSCOPY COSMETIC SURGERY 03/18/2023 - 03/17/2024 Medical History Medical History Date Comments Personal history of other me ntal and behavioral disorders History of depression - (Add ed by TW Conv) Personal history of other di seases of the digestive system History of pancreatitis - (A dded by TW Conv) Anxiety 2009 Arthritis 2012 Brain concussion 2000 Depression 2000 Pancreatitis Irritable bowel syndrome Headache migrane QUESADA Patellofemoral arthralgia of both knees Bulging lumbar disc Hyperlipidemia Severe episode of recurrent major depressive disorder, without psychotic features (HCC) 07/22/2018 Family History Medical History Relation Name Comments COPD Father Rob Cancer Father Rob Depression Father Rob Heart attack Father Rob Heart disease Father Rob Cancer Father's Sister 1 Niki Cancer Father's Sister 2 Emmett Cancer Father's Sister 3 Jolynn Cancer Maternal Grandfather Danilo Hearing loss Maternal Grandmother Oralia Miscarriages / Stillbirths Maternal Grandmother [place] Alcohol abuse Paternal Grandfather [place] Heart attack Paternal Grandmother Preeti Miscarriages / Stillbirths Paternal Grandmother Preeti Stroke Paternal Grandmother Preeti Relation Name Status Comments Father Rob bladder cancer Father's Sister 1 Niki Father's Sister 2 Emmett Father's Sister 3 Jolynn Maternal Grandfather Danilo skin an d prostate cancer Maternal Grandmother Oralia Alive Mother Paternal Grandfather [place] Paternal Grandmother Preeti lupus Social History Tobacco Use Types Packs/Day Years [...] on file Legal Sex Female 7:03 AM EVENT LIGHTING SPECIALIST Gender Identity Not on file Sexual Orientation Not on file Obstetrics History Para Term AB IAB SAB Ectopic Multiple Livin g Live Births 2 2 2 2 Date Outcome GA Total Labor Labor/2nd/3rd Weight Sex Type Anes PTL [place] A1 A5 Name Clin Term Term Last Filed Vital Signs Vital Sign Reading Time Taken Comments Blood Pressure 110/74 04/01/2024 2:16 PM EVENT LIGHTING SPECIALIST Pulse 77 04/21/2019 1:07 PM EVENT LIGHTING SPECIALIST Temperature 36.3 C (97.4 F) 04/21/2019 1:07 PM EVENT LIGHTING SPECIALIST Respiratory Rate 16 02/26/2019 10:12 AM EVENT LIGHTING SPECIALIST Oxygen Saturation 99% 04/21/2019 1:07 PM EVENT LIGHTING SPECIALIST Inhaled Oxygen Concentration - - Weight 87.2 kg (192 lb 3.2 oz) 04/01/2024 2:16 P M EVENT LIGHTING SPECIALIST Height 162.6 cm (5' 4.02) 04/01/2024 2:16 PM CS T Body Mass Index 32.97 04/01/2024 2:16 PM EVENT LIGHTING SPECIALIST Plan of Treatment Health Maintenance Due Date Last Done Comments Colon Cancer Screening-Colonoscopy 1977 Hepatitis C Screening 1977 Hepatitis B Screening 1995 Cervical Cancer Screening 10/25/2017 10/25/2016 Depression Screening 02/27/2020 02/26/2019, 02/26/2019, 08/06/2018, Additional history exists Regular Well Visit/Exam 18-64 02/27/2020 02/26/2019 Breast Cancer Screening-Mammogram 07/13/2021 07/13/2020, 07/13/2020, 03/26/2019, Additional history exists Influenza Vaccine (Season Ended) 2024 02/26/2019 DTaP/Tdap/Td Vaccine (2 - Td or Tdap) 02/26/2029 02/26/2019 Pneumococcal vaccine <65 Aged Out No longer eligible based on patient's age to complete this topic Procedures Procedure Name Priority Date/Time Associated Diagnosis [...] 07/13/20 1307 Age: 45 Sex: Female MR#: [id number] Loc: RADIOLOGY REPORT Order #[id number] [facility] Andrew Bilat Screening 3D Signed - MG [...] mammogram, 12/06/2017 mammogram, and 04/10/2017 mammogram - [facility]. BREAST TISSUE: The tissue of both breasts [...] age 40, based on guidelines of the [employer] (ACR Practice Parameter for the Performance of Screening and Diagnostic Mammography) and [employer]. For women with an elevated risk of breast cancer, please refer to the ACR Practice Parameter for specific screening recommendations. The patient will be entered into a reminder system with a target due date of 1 year for her next screening exam. Electronically signed by: Vlad diaz/sofy:07/13/2020 14:00:31 Canvas Shrinker: Gabriela Grijalva RT(R)(M), [facility] letter sent: Normal Exam Reading location: BI-RADS: 1 Negative REPORT ELECTRONICALLY SIGNED IN OTHER VENDOR SYSTEM Resulting Agency Comment O Procedure Note Vlad Thornton MD - 07/13/2020 Patient Name: PATTIE PRINCE Dr: Alexandra Tobias MD D.O.B: 1975 Exam Date: 07/13/20 1307 Age: 45 Sex: Female MR#: [id number] Loc: RADIOLOGY REPORT Order #[id number] [facility] Andrew Bilat Screening 3D Signed - MG [...] 03/26/2019 mammogram,12/06/2017 mammogram, and 04/10/2017 mammogram - [facility]. BREAST TISSUE: The tissue of both breasts [...] age 40, based on guidelines of the [employer] (ACR Practice Parameter for the Performance of Screening and Diagnostic Mammography) and [employer]. For women with an elevated risk of breast cancer, pleaserefer to the ACR Practice Parameter for specific screening recommendations. The patient will be entered into a reminder system with a target due dateof 1 year for her next screening exam. Electronically signed by: Vlad Gotti rl/sofy:07/13/2020 14:00:31 Canvas Shrinker: Gabriela SHINE(Nadeen)(M), [facility] letter sent: Normal Exam Reading location: BI-RADS: 1 Negative REPORT ELECTRONICALLY SIGNED IN OTHER VENDOR SYSTEM Alexandra Tobias MD IMG MAMMO PROCEDURES Final Result * PAP SMEAR WITH HPV (10/25/2016) Pap smear Normal Historical Provider HEALTH MAINTENANCE Final Result from Last 3 Months or Most Recently Relevant to Health Maintenance Insurance [facility] CHOICE PLUS [facility] CHOICE PLUS [facility] CHOICE PLUS Member Subscriber Plan / Payer (Ef fective 2020-Present) Name:Pattie Prince Relation to Subscriber:Spouse Name:ENE PRINCE Payer ID:[id number] (NAIC) Group ID:Not on file Type:[facility] HMO/PPO Address: [place] [id number] Care Teams Paralegal Secretary Relationship Specialty Start Date End Date Alexandra Tobias MD [address] [place], [place] [address] PCP - General 03/26/19 Viki Guardado MD [address] [place] [address] Consulting Physician Family Medicine 02/16/19
--- OUTSIDE RECORDS SUMMARY | 2024-08-20 14:56 | XMS_ITS | Patient Health Record ---
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 first saw AKI Haynes on 06/21/2023. She is currently prescribed Duloxitine and Wellbutrin. Current PHQ=8. Client reports depressive symptoms first began after her mother . Currently she reports severe issues with fatigue and poor appetite. She reports mild issues with sleep (taking about 1.5 hours to fall asleep and 3-4 times a week 9-10 hours of sleep) and difficulty with concentration, (the [facility] [facility] has disccussed with the client, doing an ADHD test). Current LUPE=4. She reports moderate difficulty with relaxing. She reports mild issues with feeling on edge and irritability. Client has experienced trauma when growing up. Client reports a history of nightmares she avoids going to her hometown, is triggered by confrontation. She feels detached from others, feels guilt (has worked through much of it) and shame related to the traumas. Has difficulty with concentration, irritability, hypervigilance . 01/01/2024 Major depressive disorder, recurrent, moderate (ICD-10 - F33.1) 01/29/2024 Major depressive disorder, recurrent, moderate (ICD-10 - F33.1) 02/10/2024 Major depressive disorder, recurrent, moderate (ICD-10 - F33.1) Assessment and Plan: 1. Depression and Anxiety - reporting overall improvement in mood and anxiety. Plan: - Continue wellbutrin XL 300 mg daily - Continue cymbalta 60 mg daily - monitor for any changes in mood or anxiety. 3. insomnia - Reports overall good quality sleep, so long as she sticks to her sleep routine Plan: - Refill eszopiclone 20 mg at bedtime as needed. - Encourage good sleep hygiene and non-pharmacolo gical methods for sleep improvement, including meditation and relaxation techniques. 3. 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 Depression and Anxiety - reporting overall improvement in mood and anxiety. Plan: - Continue wellbutrin XL 300 mg daily - Continue cymbalta 60 mg daily - monitor for any changes in mood or anxiety. 3. insomnia - Reports overall good quality sleep, so long as she sticks to her sleep routine Plan: - Refill eszopiclone 20 mg at bedtime as needed. - Encourage good sleep hygiene and non-pharmacolo gical methods for sleep improvement, including meditation and relaxation techniques. 3. ADHD - On Wellbutrin for ADHD management, reports improvement in concentration and motivation Plan: - continue wellbutrin XL 300 mg daily 4. inherited disorder of folate metabolism - refilled Deplin 90 day supply Encourage continuation of therapy for coping strategies, relaxation techniques, and additional support follow-up appointment in three months, or sooner if concerns arise, to assess progress and medication management 02/11/2024 Major depressive disorder, recurrent, moderate (ICD-10 - F33.1) 02/28/2024 Major depressive disorder, recurrent, moderate (ICD-10 - F33.1) 03/24/2024 Major depressive disorder, recurrent, moderate (ICD-10 - F33.1) 05/12/2024 Chronic posttraumatic stress disorder (ICD-10 - F43.12) Depression and Anxiety - stable Plan: - Continue wellbutrin XL 300 mg daily - Continue duloxetine 30 mg in the morning 60 mg in the evening - monitor for any changes in mood or anxiety. Insomnia - Reports overall good quality sleep, so long as she sticks to her sleep routine Plan: - Continue eszopiclone 20 mg at bedtime as needed (Rare use, no refill needed) - Encourage good sleep hygiene and non-pharmacolo gical methods for sleep improvement, including meditation and relaxation techniques. ADHD - On Wellbutrin for ADHD management, reports improvement in concentration and motivation Plan: - continue wellbutrin XL 300 mg daily inherited disorder of folate metabolism - Continue Deplin Encourage continuation of therapy for coping strategies, relaxation techniques, and additional support Requests longer follow up follow-up appointment in 6 months, or sooner if concerns arise, to assess progress and medication management 05/12/2024 Major depressive disorder, recurrent, in remission (ICD-10 - F33.40) Depression and Anxiety - stable Plan: - Continue wellbutrin XL 300 mg daily - Continue duloxetine 30 mg in the morning 60 mg in the evening - monitor for any changes in mood or anxiety. Insomnia - Reports overall good quality sleep, so long as she sticks to her sleep routine Plan: - Continue eszopiclone 20 mg at bedtime as needed (Rare use, no refill needed) - Encourage good sleep hygiene and non-pharmacolo gical methods for sleep improvement, including meditation and relaxation techniques. ADHD - On Wellbutrin for ADHD management, reports improvement in concentration and motivation Plan: - continue wellbutrin XL 300 mg daily inherited disorder of folate metabolism - Continue Deplin Encourage continuation of therapy for coping strategies, relaxation techniques, and additional support Requests longer follow up follow-up appointment in 6 months, or sooner if concerns arise, to assess progress and medication management 07/08/2024 Major depressive disorder, recurrent, in remission (ICD-10 - F33.40) 02/10/2024 Chronic insomnia (ICD-10 - F51.04) Assessment and Plan: 1. Depression and Anxiety - reporting overall improvement in mood and anxiety. Plan: - Continue wellbutrin XL 300 mg daily - Continue cymbalta 60 mg daily - monitor for any changes in mood or anxiety. 3. insomnia - Reports overall good quality sleep, so long as she sticks to her sleep routine Plan: - Refill eszopiclone 20 mg at bedtime as needed. - Encourage good sleep hygiene and non-pharmacolo gical methods for sleep improvement, including meditation and relaxation techniques. 3. 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 Insomnia - Reports overall good quality sleep, so long as she sticks to her sleep routine Plan: - Continue eszopiclone 20 mg at bedtime as needed (Rare use, no refill needed) - Encourage good sleep hygiene and non-pharmacolo gical methods for sleep improvement, including meditation and relaxation techniques. ADHD - On Wellbutrin for ADHD management, reports improvement in concentration and motivation Plan: - continue wellbutrin XL 300 mg daily inherited disorder of folate metabolism - Continue Deplin Encourage continuation of therapy for coping strategies, relaxation techniques, and additional support Requests longer follow up follow-up appointment in 6 months, or sooner if concerns arise, to assess progress and medication management 03/24/2024 Chronic posttraumatic stress disorder (ICD-10 - F43.12) 02/28/2024 Chronic posttraumatic stress disorder (ICD-10 - F43.12) 02/11/2024 Chronic posttraumatic stress disorder (ICD-10 - F43.12) 01/29/2024 Chronic posttraumatic stress disorder (ICD-10 - F43.12) 01/01/2024 Chronic posttraumatic stress disorder (ICD-10 - F43.12) 11/01/2023 Attention disturbance (ICD-10 - R41.840) NDRImay consider ADHD testing in futurerecommend avoid cannabis c/o concentration, poor memorydx adhd 2-3 yrs ago, tried several meds, not response hoped for.past stimulant helped motivation, not memory and felt bad if missed dose context past significant head injury, chronic pain/fatigue, depression, medications 09/03/2023 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 Depression and Anxiety - reporting overall improvement in mood and anxiety. Plan: - Continue wellbutrin XL 300 mg daily - Continue cymbalta 60 mg daily - monitor for any changes in mood or anxiety. 3. insomnia - Reports overall good quality sleep, so long as she sticks to her sleep routine Plan: - Refill eszopiclone 20 mg at bedtime as needed. - Encourage good sleep hygiene and non-pharmacolo gical methods for sleep improvement, including meditation and relaxation techniques. 3. ADHD - On Wellbutrin for ADHD management, reports improvement in concentration and motivation Plan: - continue wellbutrin XL 300 mg daily 4. inherited disorder of folate metabolism - refilled Deplin 90 day supply Encourage continuation of therapy for coping strategies, relaxation techniques, and additional support follow-up appointment in three months, or sooner if concerns arise, to assess progress and medication management 02/11/2024 ADHD (attention deficit hyperactivity disorder), combined type (ICD-10 - F90.2) 02/28/2024 ADHD (attention deficit hyperactivity disorder), combined type (ICD-10 - F90.2) 03/24/2024 ADHD (attention deficit hyperactivity disorder), combined type (ICD-10 - F90.2) 05/12/2024 Chronic insomnia (ICD-10 - F51.04) rare use, no refill needed. 30 day supply last sent in January Depression and Anxiety - stable Plan: - Continue wellbutrin XL 300 mg daily - Continue duloxetine 30 mg in the morning 60 mg in the evening - monitor for any changes in mood or anxiety. Insomnia - Reports overall good quality sleep, so long as she sticks to her sleep routine Plan: - Continue eszopiclone 20 mg at bedtime as needed (Rare use, no refill needed) - Encourage good sleep hygiene and non-pharmacolo gical methods for sleep improvement, including meditation and relaxation techniques. 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 Insomnia - Reports overall good quality sleep, so long as she sticks to her sleep routine Plan: - Continue eszopiclone 20 mg at bedtime as needed (Rare use, no refill needed) - Encourage good sleep hygiene and non-pharmacolo gical methods for sleep improvement, including meditation and relaxation techniques. ADHD - On Wellbutrin for ADHD management, reports improvement in concentration and motivation Plan: - continue wellbutrin XL 300 mg daily inherited disorder of folate metabolism - Continue Deplin Encourage continuation of therapy for coping strategies, relaxation techniques, and additional support Requests longer follow up follow-up appointment in 6 months, or sooner if concerns arise, to assess progress and medication management 02/10/2024 ADHD (attention deficit hyperactivity disorder), combined type (ICD-10 - F90.2) Assessment and Plan: 1. Depression and Anxiety - reporting overall improvement in mood and anxiety. Plan: - Continue wellbutrin XL 300 mg daily - Continue cymbalta 60 mg daily - monitor for any changes in mood or anxiety. 3. insomnia - Reports overall good quality sleep, so long as she sticks to her sleep routine Plan: - Refill eszopiclone 20 mg at bedtime as needed. - Encourage good sleep hygiene and non-pharmacolo gical methods for sleep improvement, including meditation and relaxation techniques. 3. ADHD - On Wellbutrin for ADHD management, reports improvement in concentration and motivation Plan: - continue wellbutrin XL 300 mg daily 4. inherited disorder of folate metabolism - refilled Deplin 90 day supply Encourage continuation of therapy for coping strategies, relaxation techniques, and additional support follow-up appointment in three months, or sooner if concerns arise, to assess progress and medication management 11/01/2023 Chronic insomnia (ICD-10 - F51.04) treated by PCP who is sleep specialistalthea palmer practice good sleep hygiene 09/03/2023 Other 01/01/2024 Other Client reports she struggles with decision making. For example, when hiring a nanny and client asked her for input, he told her that she was capable of handling it. During interviewing the came in and took over. Client felt disrespected. She has a list of incidents in the marriage, most due to 's drinking. Client and have been going to marriage counseling but does not feel he does anything wrong. She has set buondaries with him. Therapist actively listened to client and provided a supportive intervention by helping client maintain her current level of functioning through the showing of acceptance. 01/29/2024 Other Client has bee n getting over an upper respritory illness. She is concerned about her ability to do her regular holiday activities (she and her buy for 30-50 kids) plus she helps with several organizations. She focused on her 's drinking and the problems it creates in the marriage. They are doing marriage counseling. She has also been setting boundaries with him in relationship to his drinking. Therapist actively listened to client and provided a supportive intervention by helping client maintain her current level of functioning through the showing of acceptance. 02/11/2024 Other Client reports her visit with the new [facility] and it went well. 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 Client reports she has an issue with her heart rate dropping drastically when she stands up or moves around too quickly. She reports this is ther first year she is making her sleep a priority while also helping the organizations prepare for [place]. Client focused on why their recent nanny had to be let go. Therapist actively listened to client and utilized a cognitive behavioral intervention to help client explore strategies to ensure she is getting time to take care of her health. 02/28/2024 Other Client reports she and are talking about divorce. continues to drink and yet hide behind his taoism to deny he has a problem with alcohol. Client's anxiety and depression are noticeable due to his behaviors. Therapist actively listened to client and utilized a cognitive behavioral intervention to help client explore strategies to minimize depression and anxiety. PHQ=8 mild LUPE=7 mild 03/24/2024 Other Client reports she has talked to an ip technology transactions attorney, as a consult, about starting the separation process. She reports she has been rather anxious regarding all the decisions she will have to make in following this descision through. Therapist actively listened to client and helped client to explore strategies to help minimize her anxieety (making time to shut it all off to doing calming activities). PHQ=9 mild LUPE=14 moderate Plan Of Treatment Next Appt Details Provider Name:Ysabel Scout abdalla, 11/03/2024 02:00:00 PM, [address] [facility] [address], [facility] [address], [place], [address], Insurance Providers Payer Name Payer Address Payer Phone Subscriber Number Group Number Insured Name Patient Relationship to Insured Coverage Start Date Coverage End Date [facility] [address] [place] [address] [id number] VANESSA GARCIA Self - patient is the insured Medical (General) History Medical History History ICD Code Problems: Chronic insomnia Disturbance of attention Inherited disorder of folate metabolism Moderate recurrent major depression Past Psychiatric History: Panic Disorder ,PTSD undefined chronic fatigue syndrome vitamin D deficiency Surgical History Surgery Date(Month/Year) Other right and left knee scope Breast surgery (95973) reduction 024 Removal of gallbladder (56138) 0 Endometrial ablation (05925) 02/25/2017
--- OUTSIDE RECORDS SUMMARY | 2024-08-20 14:56 | XMS_ITS | Patient Health Record ---
Author Organization [facility] Address [address] [facility] [address] [place] [address] Care Team Providers Care Veneer Sander Name Role Phone Alexandra Tobias MD Primary Care Provider Unavailab Ena Velásquez Unavailable Unavailable Allergies Allergen (clinical drug ingredient) Drug/Non Drug Allergy documented on EMR Reaction Allergy Type Onset Date Status Compazine Unknown Drug Allergy Active Penicillin Unknown Drug Allergy Active Reason For Referral No Information Medications Medication SIG (Take, Route, Frequency, Duration) Notes Start Date End Date Status OTC/Vitamins Ibuprofen, Tylenol, Zyrtec, Flonase, Pataday, Saline Nasal Rinse, Omega3, DHA, EPA, Calcium, Magnesium, Zinc + D3, Iron,Vit D, Gentiana 12, Turmeric, Hemp Oil, Mood Balance, Adrenal LF, Vit B,Inflamma Tox Active Slynd Active Colestipol HCl 1 GM TAKE 1 TABLET BY MOUTH TWICE A DAY Orally Twice a day for 90 days Active DULoxetine HCl Activ e Naltrexone Active Cyclobenzaprine HCl Active Social History Tobacco Use: Social History Observation Description Date Details (start date - stop date) Never Smoker NA - NA Tobacco Use/Smoking Question Answer Notes Are you a nonsmoker Problems Problem Type SNOMED Code ICD Code Onset Dates Problem Status W/U Status Risk Notes Problem 344105487 Irritable bowel syndrome with diarrhea (K58.0) Active confirmed Patient rep orts an improvement in the quality of her stools since taking colestipol 1 g twice a day. She reports formed stools 1-2 times a day with minimal bloating. She is also on naltrexone daily. Her last colonoscopy in 2017 revealed a small polyp. She will be due in 2022 for colonoscopy. Problem [id number] Abdominal bloati ng (R14.0) Active confirmed Pattie is now on a Mediterranean diet and seeing improvement with her bloating and inflammation related to fibromyalgia. She tested negative for SIBO recently. Other considerations include IBS, food intolerances, lactose intolerance, fructose intolerance, gynecologic etiology, and others. Problem [id number] Gastroesophageal reflux disease, unspecified whether esophagitis present (K21.9) Active confirmed Patient will only have issues with acid reflux if she makes poor choices. She will then take Tums and this is relieved. Last upper endoscopy in 07/2019 by an outside provider. These records are not available at the time of visit. Plan Of Treatment Pending Test Test Name Order Date Initiate SIBO 02/15/2021 Insurance Providers Payer Name Payer Address Payer Phone Subscriber Number Group Number Insured Name Patient Relationship to Insured Coverage Start Date Coverage End Date [facility] Choice/ choice Plus [id number] [address] [place] [address] [id number] Delta Prince Spouse - patient is the spouse of the insured Medical (General) History Medical History History ICD Code IBS GERD Pancreatitis Colon Polyps Migraines Surgical History Surgery Date(Month/Year) Endoscopy (Outside Provider) 07/2019 Colonoscopy (Outside Provider) 02/2017 Cholecystectomy Uterine Ablation Right Knee Arthroscopy x2 Hospitalization History Reason Date(Month/Year) Pancreatitis 01/2021 Pancreatitis 03/2005 Fractured bones 07/2008 Anaphylaxis-penicillin
--- OUTSIDE RECORDS SUMMARY | 2024-08-20 14:56 | XMS_ITS | Encounter Summary ---
Author Organization [facility] Address [address] [place] [address] Phone Care Team Providers Care Director Of Curriculum And Instruction Name Role Phone Viki Guardado MD Unavailable [phone] Alexandra Tobias MD Primary Care Provider [phone] Encounter Details Date Type Department Care Team (Latest Contact Info) Description 04/22/2019 Orders Only [facility] Scanning, Provider Social History Tobacco Use Types Packs/Day Years Used Date Smoking Tobacco: Never Smokeless Tobacco: Never Alcohol Use Standard Drinks/Week Comments Yes 0 (1 standard drink = 0.6 oz pur e alcohol) AUDIT-C Answer Date Recorded Frequency of Alcohol Consumption 2-4 times a sat07/22/2018 Average Number of Drinks 1 or 2 019 Frequency of Binge Drinking Not on file 09/2018 PHQ-2 Answer Date Recorded PHQ-2 Score 0 02/26/2019 Comments No Sex and Gender Information Value Date Recorded Sex Assigned at Not on file Legal Sex Female 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 Gender Identity Not on file Sexual Orientation Not on file documented as of this encounter Plan of Treatment Not on file documented as of this encounter Procedures Procedure Name Priority Date/Time Associated Diagnosis Comments SCAN - LABS 04/22/2019 documented in this encounter Results * SCAN - LABS (04/22/2019) us Provider Scanning Final Result documented in this encounter Visit Diagnoses Not on filedocumented in this encounter Care Teams Director Of Curriculum And Instruction Relationship Specialty Start Date End Date Alexandra Tobias MD [address] [place] [address] PCP - General 03/26/19 Viki Guardado MD [address] [place], [place] [address] Consulting Physician Family Medicine 02/16/19 documented as of this encounter
--- OUTSIDE RECORDS SUMMARY | 2024-08-20 14:56 | XMS_ITS ---
Author Organization [facility] [employer] [facility] Address [facility] [address] [facility] [address] [place] [address] Care Team Providers Care Station Installer Name Role Phone Brenda GUERRERO DO Primary Care Provider Ysabel Peace Unavailable [phone] Shelly Suarez Unavailable [phone] Social History Sex Assigned At : Social History Observation Description Sex Assigned At Female Encounters Encounter Location Date Provider Diagnosis [facility] [employer] [place] [id number] [facility] [address] [place] [address] 04/27/2024 Shelly Suarez Plan Of Treatment Next Appt Details Provider Name:Ysabel abdalla, 11/03/2024 02:00:00 PM, [address], [facility] [address], [place], [address], Progress Notes * RASHARD GARCIAIDOB: 7 (49 yo F)Acc No.[id number]:04/27/2024 Patient: VANESSA HOLLOWAY Provider: Stefany SUAREZ LCSW :1975 A ge:49 Y S ex:Female Date:04/27/2024 Address:[address] [facility] Pcp:Brenda GUERRERO DO Data: * Chief Complaints: * Assessment: Plan: * Treatment: * Billing Information: * Visit Code: * Procedure Codes: * Electronic signature of Aminta Suarez LCSW on 08/20/2024 at 02:56 PM CDT Sign off status: Pending Signatures: No Ad Hoc Signature Added * Provider: Stefany SUAREZ LCSW Date: 0 04/27/2024 Generated for Mekhi brennan/Ugo/Dian on: 0 08/20/2024 02:56 PM CDT
--- NOTE | 2024-08-20 15:11 | S_PTH ---
PATIENT: Pattie Carlton LOC: [facility]G U#:[id number] AGE/SX: 49/F ROOM: RE08/20/[address]: Liz Pierce MD : 1975 BED: DIS: 08/20/2024 SPEC #: [id number] RECD: 08/21/24 12:46 STATUS: JOE REQ #: [id number] [place]: 08/20/24 15:[address]: Liz Pierce DEPT: [facility] Surgical RECD BY: Sue Craig ENTERED: 08/21/24 12:46 SP TYPE: Surgical OTHR DR: Brenda Goddard DO Tissues: A - Breast Biopsy B - Breast Biopsy Procedures: Hematoxylin and Eosin Stain Gross and Microscopic Level 4
== END 2024-08-20 14:12 | disposition home or self-care (01) ==
PROVIDERS: PCP Family Medicine; Visit Provider Surgery
DX: R92.0 Mammographic microcalcification found on diagnostic imaging of breast (principal); R92.8 Other abnormal and inconclusive findings on diagnostic imaging of breast
CPT/HCPCS: 19081; 88305

== ENCOUNTER 2025-01-29 03:45 | Day surgery (SDC) | payer OTHER, SELFPAY ==
--- OUTSIDE RECORDS SUMMARY | 2024-01-15 07:00 | XMS_ITS ---
Author Organization [facility] [employer] Address [address] [place] [address] Care Team Providers Care Digital Marketing Consultant Name Role Phone Brenda GUERRERO DO Primary Care Provider Ysabel Peace Unavailable [phone] Shelly Suarez Unavailable [phone] Medications Medication SIG (Take, Route, Frequency, Duration) [...] SLYND 4 MG (28) TABLET *Reorder from dINK for eRx and Interaction Alerts* 08/02/2023 Active Colestipol HCl 1 GM Tablet Oral 08/02/2023 Active Eszopiclone 2 MG Tablet Oral 08/02/2023 Active valACYclovir HCl 1 GM Tablet Oral 08/02/2023 Active Naltrexone *Pick strength-form from dINK for eRX* 08/02/2023 Active Social History Sex Assigned At : Social History Observation Description Sex Assigned At Female Encounters Encounter Location Date Provider Diagnosis [facility] [address] [place] [address] 01/15/2024 Shelly Suarez Plan Of Treatment Next Appt Details Provider Name:Ysabel abdalla, 05/05/2025 02:00:00 PM, [address], [place], [address], Progress Notes * MarimarRASHARD HAMMIDOB: 7 (49 yo F)Acc No.[id number]:01/15/2024 Patient: Marimar EneJELENAEDGARVANESSA Provider: Stefany SUAREZ LCSW :1975 A ge:48 Y S ex:Female Date:01/15/2024 [facility] Pcp:Brenda GUERRERO DO Data: * Chief Complaints: * Medications: T akingNaltrexone , Notes to Pharmacist: *Pick strength-form from dINK for eRX*Pantoprazole Sodium 20 MG Tablet Delayed Release Oral Colestipol HCl 1 GM Tablet Oral SLYND 4 MG (28) TABLET , Notes to Pharmacist: *Reorder from dINK for eRx and Interaction Alerts*valACYclovir HCl 1 [...] , Notes to Pharmacist: *Pick strength-form from Trackan for eRX*Taking Pantoprazole Sodium 20 MG Tablet Delayed Release Oral Taking Colestipol HCl 1 GM Tablet Oral Taking SLYND 4 MG (28) TABLET , Notes to Pharmacist: *Reorder from Trackan for eRx and Interaction Alerts*Taking valACYclovir HCl [...] Electronic signature of Aminta Suarez LCSW on 01/29/2025 at 03:48 AM MATERIAL HANDLER 2ND SHIFT Sign off status: Pending Signatures: No Ad Hoc Signature Added * Provider: Stefany SUAREZ LCSW Date: Generated for Mekhi brennan/Ugo/Dian on: 03/31/2024 03:48 AM MATERIAL HANDLER 2ND SHIFT
--- OUTSIDE RECORDS SUMMARY | 2024-04-27 08:00 | XMS_ITS ---
Author Organization [facility] [employer] [facility] Address [facility] [facility] [address] [place] [address] Care Team Providers Care Senior Network Administrator Name Role Phone Brenda GUERRERO DO Primary Care Provider Ysabel Peace Unavailable [phone] Shelly Suarez Unavailable [phone] Social History Sex Assigned At : Social History Observation Description Sex Assigned At Female Encounters Encounter Location Date Provider Diagnosis [facility] [employer] [place] [address] [facility] [address] [place] [address] 04/27/2024 Shelly Suarez Plan Of Treatment Next Appt Details Provider Name:Ysabel abdalla, 05/05/2025 02:00:00 PM, [address], [facility] [address], [place], [address], Progress Notes * RASHARD GARCIAIDOB: 7 (49 yo F)Acc No.[id number]:04/27/2024 Patient: VANESSA HOLLOWAY Provider: Stefany SUAREZ LCSW :1975 A ge:49 Y S ex:Female Date:04/27/2024 Address:[address] [facility] Pcp:Brenda GUERRERO DO * Electronic signature of Aminta Suarez LCSW on 01/29/2025 at 03:49 AM TRAFFIC SERGEANT Sign off status: Pending Signatures: No Ad Hoc Signature Added * Provider: Stefany SUAREZ LCSW Date: 0 04/27/2024 Generated for Mekhi brennan/Zac on: 1 03/31/2024 03:49 AM TRAFFIC SERGEANT
[2025-01-27 14:11] VITALS: BMI 31.4
--- OUTSIDE RECORDS SUMMARY | 2025-01-29 03:48 | XMS_ITS | Clinical Summary ---
Author Organization [address] Address [address] [place] [address] Care Team Providers Care Assistant Associate Professor Name Role Phone Viki Guardado MD Unavailable [phone] Alexandra Tobias MD Primary Care Provider [phone] Allergies Active Allergy Reactions Criticality Noted Date Comments Penicillins Anaphylaxis High Prochlorperazine Other (See comments) Low Dystonia Medications fluticasone propionate (FLONASE NASL) daily Activ e multivitamin tablet,chewable Take by mouth Active olopatadine (PATADAY) 0.2 % ophthalmic solutionIndication s:Allergic Conjunctivitis Administer 1 drop into both eyes daily 2.5 mL 5 0 Active jerkg-1x-iiw-epa-f emeka oil 600-1,200 mg capsule Take by [...] 04/01/2024 Assessment & Plan (04/01/2024 2:54 PM FIGURE SKATER): Discussed the menopause transition and typical symptoms. [...] 02/26/2019 Assessment & Plan (02/26/2019 1:26 PM FIGURE SKATER): Exercise 5 days a week, 30 mins [...] Grandmother Oralia Miscarriages / Stillbirths Maternal Grandmother [place] Alcohol abuse Paternal Grandfather [place] Heart attack Paternal Grandmother Preeti Miscarriages / Stillbirths Paternal Grandmother Preeti Stroke Paternal Grandmother Preeti Relation Name Status Comments Father Rob bladder cancer Father's Sister 1 Niki Father's Sister 2 Emmett Father's Sister 3 Jolynn Maternal Grandfather Danilo skin an d prostate cancer Maternal Grandmother Oralia Alive Mother Paternal Grandfather [place] Paternal Grandmother Preeti lupus Social History Tobacco [...] on file Legal Sex Female 7:03 AM FIGURE SKATER Gender Identity Not on file Sexual Orientation Not on file Obstetrics History Para Term AB IAB SAB Ectopic Multiple Livin g Live Births 2 2 2 2 Date Outcome GA Total Labor Labor/2nd/3rd Weight Sex Type Anes PTL [place] A1 A5 Name Clin Term Term Last Filed Vital Signs Vital Sign Reading Time Taken Comments Blood Pressure 110/74 04/01/2024 2:16 PM FIGURE SKATER Pulse 77 04/21/2019 1:07 PM FIGURE SKATER Temperature 36.3 C (97.4 F) 04/21/2019 1:07 PM FIGURE SKATER Respiratory Rate 16 02/26/2019 10:12 AM FIGURE SKATER Oxygen Saturation 99% 04/21/2019 1:07 PM FIGURE SKATER Inhaled Oxygen Concentration - - Weight 87.2 kg (192 lb 3.2 oz) 04/01/2024 2:16 P M FIGURE SKATER Height 162.6 cm (5' 4.02) 04/01/2024 2:16 PM CS T Body Mass Index 32.97 04/01/2024 2:16 PM FIGURE SKATER Plan of Treatment Health Maintenance Due Date Last Done Comments Colon Cancer Screening-Colonoscopy 1975 Hepatitis C Screening 1975 Hepatitis B Screening 1995 Cervical Cancer Screening 10/25/2017 10/25/2016 Depression Screening 02/27/2020 02/26/2019, 02/26/2019, 08/06/2018, Additional history exists Regular Well Visit/Exam 18-64 02/27/2020 02/26/2019 Breast Cancer Screening-Mammogram 07/13/2021 07/13/2020, 07/13/2020, 03/26/2019, Additional history exists Influenza Vaccine (#1) 2024 02/26/2019 DTaP/Tdap/Td Vaccine (2 - Td or Tdap) 02/26/2029 02/26/2019 Pneumococcal vaccine <65 Aged Out No longer eligible based on patient's age to complete this topic Procedures Procedure Name Priority Date/Time Associated Diagnosis Comments SCREENING MAMMOGRAM BILATERAL W PMUA 07/13/2020 1:07 PM CDT HM PAP SMEAR [...] 07/13/20 1307 Age: 45 Sex: Female MR#: [id number] Loc: RADIOLOGY REPORT Order #[id number] [facility] Andrew Bilat Screening 3D Signed - MG [...] mammogram, 12/06/2017 mammogram, and 04/10/2017 mammogram - [facility]. BREAST TISSUE: The tissue of both breasts [...] age 40, based on guidelines of the [place] [employer] (ACR Practice Parameter for the Performance of Screening and Diagnostic Mammography) and [place] [employer]. For women with an elevated risk of breast cancer, please refer to the ACR Practice Parameter for specific screening recommendations. The patient will be entered into a reminder system with a target due date of 1 year for her next screening exam. Electronically signed by: Vlad diaz/sofy:07/13/2020 14:00:31 Field Checker: Gabriela Grijalva RT(R)(M), [email or web address] letter sent: Normal Exam Reading location: BI-RADS: 1 Negative REPORT ELECTRONICALLY SIGNED IN OTHER VENDOR SYSTEM Resulting Agency Comment O Procedure Note Vlad Thornton MD - 07/13/2020 Patient Name: PATTIE PRICNE Dr: Alexandra Tobias MD D.O.B: 1975 Exam Date: 07/13/20 1307 Age: 45 Sex: Female MR#: [id number] Loc: RADIOLOGY REPORT Order #[id number] [facility] Andrew Bilat Screening 3D Signed - MG [...] 03/26/2019 mammogram,12/06/2017 mammogram, and 04/10/2017 mammogram - [facility]. BREAST TISSUE: The tissue of both breasts [...] age 40, based on guidelines of the [place] [employer] (ACR Practice Parameter for the Performance of Screening and Diagnostic Mammography) and [place] [employer]. For women with an elevated risk of breast cancer, pleaserefer to the ACR Practice Parameter for specific screening recommendations. The patient will be entered into a reminder system with a target due dateof 1 year for her next screening exam. Electronically signed by: Vlad Gotti rl/sofy:07/13/2020 14:00:31 Field Checker: Gabriela SHINE(Nadeen)(M), [facility] letter sent: Normal Exam Reading location: BI-RADS: 1 Negative REPORT ELECTRONICALLY SIGNED IN OTHER VENDOR SYSTEM Alexandra Tobias MD IMG MAMMO PROCEDURES Final Result * PAP SMEAR WITH HPV (10/25/2016) Pap smear Normal Historical Provider HEALTH MAINTENANCE Final Result from Last 3 Months or Most Recently Relevant to Health Maintenance Insurance [facility] CHOICE [facility] HMO/PPO Address: [facility] [address] [place] [address] [facility] CHOICE [facility] HMO/[place]: [place] [address] [facility] CHOICE PL[facility] HMO/PPO Address: [place] [phone] Care Teams Assistant Associate Professor Relationship Specialty Start Date End Date Alexandra Tobias MD [address] [place], [place] [address] PCP - General 03/26/19 Viki Guardado MD [address] [place] [address] Consulting Physician Family Medicine 02/16/19
--- OUTSIDE RECORDS SUMMARY | 2025-01-29 03:49 | XMS_ITS | Encounter Summary ---
Author Organization [facility] Address [address] [place] [address] Phone Care Team Providers Care Alterations Expert Name Role Phone Viki Guardado MD Unavailable [phone] Alexandra Tobias MD Primary Care Provider [phone]- [phone] Encounter Details Date Type Department Care Team [...] on file Legal Sex Female 7:03 AM RN PERINATAL Gender Identity Not on file Sexual Orientation [...] on filedocumented in this encounter Care Teams Alterations Expert Relationship Specialty Start Date End Date Alexandra Tobias MD [address] [place] [address] PCP - General 03/26/19 Viki Guardado MD [address] [place], [place] [address] Consulting Physician Family Medicine 02/16/19 documented as of this encounter
--- OUTSIDE RECORDS SUMMARY | 2025-01-29 03:49 | XMS_ITS | Patient Health Record ---
Author Organization [facility] Address [address] [place] [address] Care Team Providers Care Vending Route Servicer Name Role Phone Brenda GUERRERO DO Primary Care Provider Ysabel Peace Unavailable [phone] Shelly Suarez Unavailable [phone] Allergies Allergen (clinical drug ingredient) Drug/Non Drug Allergy documented on EMR Reaction Allergy Type Onset Date Status Compazine Unknown Drug Allergy 08/02/2023 Active Reason For Referral No Information Medications Medication SIG (Take, Route, Frequency, Duration) Notes Start Date End Date Status DULoxetine HCl 30 MG Capsule Delayed Release Particles 1 capsule Orally Once a day; Duration: 90 days 90 mg total daily Active oxyBUTYnin Chloride 2.5 MG Tablet 1 tablet Orally Once a day Active Deplin 15 15-90.314 MG Capsule 1 capsule Oral Once a day; Duration: 90 days Active buPROPion HCl ER (XL) 300 MG Tablet Extended Release 24 Hour 1 tablet every morning Oral Once a day; Duration: 90 days 11/03/2024 Active Nurtec 75 MG Tablet Disintegrating 1 tablet on the tongue and allow to dissolve Orally Active DULoxetine HCl 60 MG Capsule Delayed Release Particles 1 capsule Oral Once a day; Duration: 90 days 90 mg total daily 11/03/2024 Active oxyBUTYnin Chloride 5 MG Tablet 1 tablet Orally Once a day Active valACYclovir HCl 1 GM Tablet Oral 08/02/2023 Active Colestipol HCl 1 GM Tablet Oral 08/02/2023 Active SLYND 4 MG (28) TABLET *Reorder from [employer] for eRx and Interaction Alerts* 08/02/2023 Active Naltrexone *Pick strength-form from [email or web address] for eRX* 08/02/2023 Active Pantoprazole Sodium 20 MG Tablet Delayed Release Oral 08/02/2023 Active Fenofibrate 150 MG Capsule 1 capsule with food Orally Once a day Active Pantoprazole Sodium 40 MG Tablet Delayed Release Oral 08/02/2023 Unknown Social History Tobacco Use: Social History Observation Description Date Details (start date - stop date) Never Smoker NA - NA Sex Assigned At : Social History Observation Description Sex Assigned At Female Social History Miscellaneous: Social Info Question Answer Notes Advance Care Planning Are you your own decision-maker Yes Do you have Power of Resaw Tailer for Health or [facility]? No Safety issues: Are there any firearms in the house? Ye s Social History Social Info Question Answer Notes Household: Marital Status: Number of Adults in household: 2 Number of Children in Household: 2 Level of Education: Finished College Household: Social Info Question Answer Notes Household Marital status: Drug/Alcohol: Social Info Question Answer Notes Drugs Have you used drugs other than those for medical reasons in the past 12 months? No AUDIT-C (Standard) Did you have a drink containing alcohol in the past year? Yes How often did you have six or more drinks on one occasion in the past year? Never (0 point) How many drinks did you have on a typical day when you were drinking in the past year? 1 or 2 drinks (0 point) How often did you have a drink containing alcohol in the past year? 2 to 4 times a month (2 points) Tobacco Use: Social Info Question Answer Notes Tobacco Control (Standard) Tobacco use: Nonsmoker Additional Details Category Social Info Options Details Miscellaneous: Occupation: Accounting Migrated Social History Migrated Social History Alcohol Intake: Occasional 06/21/2023,Tobacco Years: Former smoker 06/21/2023 Drug/Alcohol: Do you smoke marijuana? No Do you drink alcohol? Occasional ly Section Notes: Social History Substance Use Do [...] employed?: Yes Who is your employer?: [employer] What is your relationship status?: Are you sexually active?: Yes Do you use protection during sex?: No How many children do you have?: 2 Home and Environment Are there any guns present in your home?: Yes Advance Directive Do you have an advance directive?: Yes Do you have a medical power of staff attorney?: No Social History Substance Use Do [...] employed?: Yes Who is your employer?: [employer] What is your relationship status?: Are you sexually active?: Yes Do you use protection during sex?: No How many children do you have?: 2 Home and Environment Are there any guns present in your home?: Yes Advance Directive Do you have an advance directive?: Yes Do you have a medical power of staff attorney?: No Social History Substance Use Do [...] Do you have a medical power of staff attorney?: No Substance Use Do you or [...] employed?: Yes Who is your employer?: [employer] What is your relationship status?: Are you sexually active?: Yes Do you use protection during sex?: No How many children do you have?: 2 Home and Environment Are there any guns present in your home?: Yes Advance Directive Do you have an advance directive?: Yes Do you have a medical power of staff attorney?: No Substance Use Do you or [...] employed?: Yes Who is your employer?: [employer] What is your relationship status?: Are you sexually active?: Yes Do you use protection during sex?: No How many children do you have?: 2 Home and Environment Are there any guns present in your home?: Yes Advance Directive Do you have an advance directive?: Yes Do you have a medical power of staff attorney?: No Social History Substance Use Do [...] employed?: Yes Who is your employer?: [employer] What is your relationship status?: Are you sexually active?: Yes Do you use protection during sex?: No How many children do you have?: 2 Home and Environment Are there any guns present in your home?: Yes Advance Directive Do you have an advance directive?: Yes Do you have a medical power of staff attorney?: No Substance Use Do you or [...] employed?: Yes Who is your employer?: [employer] What is your relationship status?: Are you sexually active?: Yes Do you use protection during sex?: No How many children do you have?: 2 Home and Environment Are there any guns present in your home?: Yes Advance Directive Do you have an advance directive?: Yes Do you have a medical power of staff attorney?: No Social History Substance Use Do [...] Do you have a medical power of staff attorney?: No Social History Substance Use Do [...] Do you have a medical power of staff attorney?: No Problems Problem Type SNOMED Code ICD Code Onset Dates Problem Status W/U Status Risk Notes Problem Chronic posttraumatic stress disorder (347127001) Chronic posttraumatic stress disorder (F43.12) Active confirmed Problem Attention deficit hyperactivity disorder (092902641) ADHD (attention deficit hyperactivity disorder), combined type (F90.2) Active confirmed Problem Chronic insomnia (015319135) Chronic insomnia (F51.04) Active confirmed Problem Disturbance of attention (finding) (64394948) Attention disturbance (R41.840) Active confirmed Problem 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 Problem Recurrent major depression (23611893) Major depressive disorder, recurrent, in remission (F33.40) Active confirmed Vital Signs Heart Rate 87 /min 11/03/2024 Height-cm 162.56 cm 11/03/2024 Blood pressure diastolic 80 mm Hg 11/03/2024 Weight-kg 86.09 kg 11/03/2024 Height 64.00 in 11/03/2024 Blood pressure systolic 118 mm Hg 11/03/2024 Weight 189.8 lbs 11/03/2024 BMI 32.58 kg/m2 11/03/2024 Encounters Encounter Location Date Provider Diagnosis [facility] [address] [address] 02/10/2024 Ysabel Farr Major depressive disorder, recurrent, moderate F33.1 ; Inherited disorder of folate metabolism E88.89 ; Chronic insomnia F51.04 ; Chronic posttraumatic stress disorder F43.12 and ADHD (attention deficit hyperactivity disorder), combined type F90.2 [facility] [address] [facility] [address] [place] [address] 02/11/2024 Shelly Daniela Major depressive disorder, recurrent, moderate F33.1 ; Chronic posttraumatic stress disorder F43.12 and ADHD (attention deficit hyperactivity disorder), combined type F90.2 [place] [address] [address] 02/28/2024 Shelly Daniela Major depressive disorder, recurrent, moderate F33.1 ; Chronic posttraumatic stress disorder F43.12 and ADHD (attention deficit hyperactivity disorder), combined type F90.[address] [address] 03/24/2024 Shelly Daniela Major depressive disorder, recurrent, moderate F33.1 ; Chronic posttraumatic stress disorder F43.12 and ADHD (attention deficit hyperactivity disorder), combined type F90.[address] [address] 04/07/2024 Shelly Daniela [place] [address] [address] 05/12/2024 Ysabel Farr Chronic posttraumati c stress disorder F43.12 ; Major depressive disorder, recurrent, in remission F33.40 ; ADHD (attention deficit hyperactivity disorder), combined type F90.2 ; Chronic insomnia F51.04 and Inherited disorder of folate metabolism E88.[address] [address] 11/03/2024 Ysabel Farr Chronic posttraumati c stress disorder F43.12 ; Major depressive disorder, recurrent, in remission F33.40 ; ADHD (attention deficit hyperactivity disorder), combined type F90.2 ; Chronic insomnia F51.04 and Inherited disorder of folate metabolism E88.89 [place] [address] [address] 04/07/[address] [address] 07/08/2024 Ysabel Farr Major depressive disorder, recurrent, in remission F33.40 [place] [address] [address] 11/03/2024 Ysabel Farr Assessments Encounter Date Diagnosis (ICD Code) Assessment Notes Treatment Notes Treatment Clinical Notes Section Notes 02/10/2024 Major depressive disorder, recurrent, moderate (ICD-10 [...] needed. - Encourage good sleep hygiene and non-pharmacolog ical methods for sleep improvement, including meditation and [...] needed. - Encourage good sleep hygiene and non-pharmacolog ical methods for sleep improvement, including meditation and [...] needed) - Encourage good sleep hygiene and non-pharmacolog ical methods for sleep improvement, including meditation and [...] needed) - Encourage good sleep hygiene and non-pharmacolog ical methods for sleep improvement, including meditation and [...] disorder, recurrent, in remission (ICD-10 - F33.40) 11/03/2024 Chronic posttraumatic stress disorder (ICD-10 - F43.12) 11/03/2024 ADHD (attention deficit hyperactivity disorder), combined type (ICD-10 - F90.2) 05/12/2024 ADHD (attention deficit hyperactivity disorder), combined [...] needed) - Encourage good sleep hygiene and non-pharmacolog ical methods for sleep improvement, including meditation and [...] to assess progress and medication management 02/10/2024 Chronic insomnia (ICD-10 - F51.04) Assessment [...] needed. - Encourage good sleep hygiene and non-pharmacolog ical methods for sleep improvement, including meditation and [...] arise, to assess progress and medication management 11/03/2024 Major depressive disorder, recurrent, in remission (ICD-10 - F33.40) 03/24/2024 Chronic posttraumatic stress disorder (ICD-10 - F43.12) 02/28/2024 Chronic posttraumatic stress disorder (ICD-10 - F43.12) 02/11/2024 Chronic posttraumatic stress disorder (ICD-10 - F43.12) 02/10/2024 Chronic posttraumatic stress disorder (ICD-10 - [...] needed. - Encourage good sleep hygiene and non-pharmacolog ical methods for sleep improvement, including meditation and [...] needed) - Encourage good sleep hygiene and non-pharmacolog ical methods for sleep improvement, including meditation and [...] arise, to assess progress and medication management 11/03/2024 Chronic insomnia (ICD-10 - F51.04) rare use 11/03/2024 Inherited disorder of folate metabolism (ICD-10 - E88.89) 05/12/2024 Inherited disorder of folate metabolism (ICD-10 [...] needed) - Encourage good sleep hygiene and non-pharmacolog ical methods for sleep improvement, including meditation and [...] needed. - Encourage good sleep hygiene and non-pharmacolog ical methods for sleep improvement, including meditation and [...] to assess progress and medication management 02/11/2024 Other Client reports her visit with the new [facility] and it went well. She reports [...] while also helping the organizations prepare for [place]. Client focused on why their recent nanny had to be let go. Therapist actively listened to client and utilized a cognitive behavioral intervention to help client explore strategies to ensure she is getting time to take care of her health. 02/28/2024 Other Client reports she and are talking about divorce. continues to drink and yet hide behind his uatsdin to deny he has a problem with alcohol. Client's anxiety and depression are noticeable due to his behaviors. Therapist actively listened to client and utilized a cognitive behavioral intervention to help client explore strategies to minimize depression and anxiety. PHQ=8 mild LUPE=7 mild 03/24/2024 Other Client reports she has talked to an staff attorney, as a consult, about starting the separation process. She reports she has been rather anxious regarding all the decisions she will have to make in following this descision through. Therapist actively listened to client and helped client to explore strategies to help minimize her anxieety (making time to shut it all off to doing calming activities). PHQ=9 mild LUPE=14 moderate 11/03/2024 Other Pattie Garcia, female, with history of depression, anxiety, PTSD, insomnia, and disorder of folate metabolism, presenting with ongoing concerns related to her 's alcohol use and its impact on her mental health. Anxiety Assessment: Patient reports anxiety is manageable but experiences heightened anxiety related to her 's alcohol use and unpredictable behavior. She describes feeling on edge and unable to sleep well until her returns home from drinking, typically around 2 AM. The patient has implemented strategies such as working with a cheerleading coach on boundaries and making backup plans. The addition of 30 mg duloxetine in the morning has been helpful in managing anxiety symptoms. Plan: - Continue duloxetine 90 mg daily (30 mg in the morning, 60 mg in the evening) - Encourage ongoing use of coping strategies and boundary-setting techniques Insomnia Assessment: Patient reports intermittent sleep disturbances, primarily related to anxiety about her 's drinking behavior and late-night returns home. She uses Lunesta occasionally, typically for 2-3 days at a time with months-long breaks between uses. Plan: - Continue Lunesta 2 mg at bedtime as needed for insomnia - Provide refill for Lunesta Depression Assessment: Patient reports she is doing alright and denies feeling too down or depressed. No current suicidal ideation reported. Continuing on duloxetine and bupropion for management of depressive symptoms. Plan: - Continue duloxetine 90 mg daily (30 mg in the morning, 60 mg in the evening) - Continue bupropion 300 mg daily PTSD Assessment: Patient has a history of PTSD. Current symptoms not explicitly discussed, but anxiety and sleep disturbances may be related. Patient expressed interest in EMDR therapy, which could be beneficial for PTSD treatment. Plan: - Provided information about EMDR therapist (Atiya), noting long wait times for appointments Disorder of folate metabolism Assessment: Patient has a history of disorder of folate metabolism, currently managed with Deplin (L-methylfolate). Plan: - Continue Deplin - Assess need for refill (patient unsure of current supply, typically receives 90-day supply) Safety concerns Assessment: Patient reports feeling safe at home most of the time but expresses fear when her is intoxicated. She recounts a recent incident on Father's Day where she called the police due to concerns that her might attempt to harm her and then commit suicide. The patient denies current thoughts of self-harm or harming others. Plan: - Reviewed safety planning - Encouraged patient to continue utilizing emergency services if feeling unsafe - Advised ongoing communication with children about the situation as appropriate Medical Decision Making Pattie Garcia is a female patient with a history of depression, anxiety, PTSD, insomnia, and disorder of folate metabolism, presenting with ongoing concerns related to her partner's alcohol use and its impact on her mental health. The patient reports manageable anxiety and denies current suicidal ideation, but experiences sleep disturbances due to her partner's late-night drinking habits. The addition of 30mg duloxetine in the morning to her existing 60mg dose appears to be helping manage her symptoms. The patient's safety at home is a concern, with a recent incident on Father's Day prompting her to call the police due to fears for her safety. While the patient denies current thoughts of self-harm or harm to others, the situation with her partner introduces complexity and potential risk factors that need ongoing monitoring. The use of Lunesta for occasional insomnia management and Deplin for folate metabolism disorder continue to be part of the treatment plan. Plan Of Treatment Next Appt Details Provider Name:Ysabel abdalla, 05/05/2025 02:00:00 PM, [address], [address], [place], [address], Insurance Providers Payer Name Payer Address Payer Phone Subscriber Number Group Number Insured Name Patient Relationship to Insured Coverage Start Date Coverage End Date [facility] [address] [place] [address] [id number] PATTIE GARCIA Self - patient is the insured Medical (General) History Medical History History ICD Code Problems: Chronic insomnia Disturbance of attention Inherited disorder of folate metabolism Moderate recurrent major depression Past Psychiatric History: Panic Disorder ,PTSD undefined chronic fatigue syndrome vitamin D deficiency Surgical History Surgery Date(Month/Year) Other right and left knee scope Breast surgery () reduction 024 Removal of gallbladder (72280) 0 Endometrial ablation (91548) 02/25/2017
--- OUTSIDE RECORDS SUMMARY | 2025-01-29 03:49 | XMS_ITS | Encounter Summary ---
Author Organization [facility] Care Team Providers Care Laser Set Up Operator Name Role Phone Viki Guardado MD Primary Care Provi opal Monserrat Castro Unavailable [phone] Monserrat Castro Primary Care Provider [phone] Monserrat Castro Primary Care Provider [phone] Viki Guardado MD Unavailable [phone] Alexandra Tboias MD Primary Care Provider [phone] Encounter Details Date Type Department Care Team (Latest Contact Info) Description 03/15/2017 Orders Only [facility]IN[facility] Provider, MD Angus [address] [place] [id number] Social History Tobacco Use Types Packs/Day Years Used Date Smoking Tobacco: Never Comments Unknown Sex and Gender Information Value Date Recorded Sex Assigned at Not on file Legal Sex Female 7:03 AM STOPPER SETTER Gender Identity Not on file Sexual Orientation Not on file documented as of this encounter Functional Status documented as of this encounter Plan of Treatment Not on file documented as of this encounter Procedures Procedure Name Priority Date/Time Associated Diagnosis Comments COLONOSCOPY - SCAN 03/14/2017 12 :00 AM STOPPER SETTER documented in this encounter Results * COLONOSCOPY - SCAN (03/14/2017 12:00 AM STOPPER SETTER) Narrative 03/14/2017 12:00 AM STOPPER SETTER Ordered by an unspecified provider. us Historical Provider Final Res ult documented in this encounter Visit Diagnoses Not on filedocumented in this encounter Care Teams Laser Set Up Operator Relationship Specialty Start Date End Date Viki Guardado MD [address] [place] [address] PCP - General Family Medicine 07/22/18 07/31/18 Monserrat Castro PA [address] [place] [address] PCP - General Critical Care Med 08/14/18 03/25/19 Monserrat Castro PA [address] [place] [address] PCP - General 08/01/18 08/13/18 Alexandra Tobias MD [address] [place] [address] PCP - General 03/26/19 Monserrat Castro PA [address] [place] [address] Physician Yard Coupler Critical Care Med 07/22/18 02/15/19 Viki uGardado MD [address] [place] [address] Consulting Physician Family Medicine 02/16/19 documented as of this encounter
--- OUTSIDE RECORDS SUMMARY | 2025-01-29 03:49 | XMS_ITS | Encounter Summary ---
Author Organization [facility] Address [address] [place] [address] Care Team Providers Care Inside Parts Sales Name Role Phone Dariel Rahman MD Primary Care Prov ider Unavailable Encounter Details Date Type Department Care Team (Late st Contact Info) Description 02/23/2004 Outpatient Historical [facility] [address] [place] [address] Franko Borja Social History Tobacco Use Types Packs/Day Years Used Date Smoking Tobacco: Never Assessed Comments Unknown Sex and Gender Information Value Date Recorded Sex Assigned at Not on file Legal Sex Female 4:22 AM STATISTICAL SECRETARY Gender Identity Not on file Sexual Orientation Not on file documented as of this encounter Plan of Treatment Not on file documented as of this encounter Visit Diagnoses Not on filedocumented in this encounter Care Teams Inside Parts Sales Relationship Specialty Start Date End Date Dariel Rahman MD PCP - General 05/15/12 Brenda Goddard [address], [place] [address] 03/19/23 documented as of this encounter
--- OUTSIDE RECORDS SUMMARY | 2025-01-29 03:49 | XMS_ITS | Clinical Summary ---
Author Organization [facility] Address [address] [place] [address] Care Team Providers Care Counselor Nurses' Association Name Role Phone Dariel Rahman MD Primary [...] daily. Active fluticasone propionate (FLONASE) 50 mcg/spray [place], Suspension nasal inhaler Administer 2 Sprays in [...] Active sodium chloride (OCEAN) 0.65 % Aerosol, [place] Administer 1 [place] in each nostril PRN for Allergies. Active [...] 30 mg 20 Tablet 03/30/2023 1:13 PM WELDING SPECIALIST 03/28/19 24 Active gabapentin (Neurontin) 300 mg capsule Take 1 Capsule (300 mg) by mouth 2 times daily. 30 Capsule 03/30/2023 1:13 PM WELDING SPECIALIST 03/28/19 Active Syringe with Needle, Disp, (BD Luer-Akshat Syringe) 3 mL 25 x 5/8 Syringe Use as directed for subcutaneous heparin injections. 14 Each 03/30/2023 1:13 PM WELDING SPECIALIST 03/28/19 24 Active Social History Tobacco Use [...] on file Legal Sex Female 4:22 AM WELDING SPECIALIST Gender Identity Not on file Sexual Orientation Not on file Last Filed Vital Signs Vital Sign Reading Time Taken Comments Blood Pressure 98/48 03/31/2023 8:58 AM WELDING SPECIALIST Pulse 96 03/31/2023 8:58 AM WELDING SPECIALIST Temperature 36.8 C (98.3 F) 03/31/2023 8:58 AM WELDING SPECIALIST Respiratory Rate 19 03/31/2023 8:58 AM WELDING SPECIALIST Oxygen Saturation 89% 03/31/2023 8:58 AM WELDING SPECIALIST Inhaled Oxygen Concentration - - Weight 75.8 kg (167 lb) 03/28/2023 5:53 AM WELDING SPECIALIST Height 163.2 cm (5' 4.25) 03/22/2023 10:[address] Body Mass Index 28.44 03/22/2023 10:44 AM WELDING SPECIALIST Plan of Treatment Health Maintenance Due [...] Q 5 years 2022 INFLUENZA VACCINE (#1) 2024 02/26/2019 DTAP/TDAP/TD VACCINES (2 - T d or Tdap) 02/26/2029 02/26/2019 Insurance RX [employer] RX Member Subscriber Plan / Payer (Ef fective 2023-Present) Name:Pattie Prince Relation to Subscriber:Self Name:Pattie Prince Subscriber ID:Not on file Payer ID:Not on file Group ID:[id number] Type:RX Commercial Address: [address] [facility] [address] [place] [address] Advance Directives For more information, please contact: [phone] * Full Code (Latest Code Status on File) Date Activated Date Inactivated Comments 03/28/2023 3:07 PM 03/31/2023 6:08 PM Care Teams Counselor Nurses' Association Relationship Specialty Start Date End Date Dariel Rahman MD PCP - General 05/15/12 Brenda Goddard [address], [place] [address] 03/19/23
--- OUTSIDE RECORDS SUMMARY | 2025-01-29 03:49 | XMS_ITS | Encounter Summary ---
Author Organization [facility] Facility Care Team Providers Care Dietitian Teacher Name Role Phone Viki Guardado MD Primary Care Provi opal Monserrat Castro Unavailable [phone] Monserrat Castro Primary Care Provider [phone] Monserrat Castro Primary Care Provider [phone] Viki Guardado MD Unavailable [phone] Alexandra Tobias MD Primary Care Provider [phone] Encounter Details Date Type Department Care Team (Latest Contact Info) Description 12/24/2017 Orders Only [facility]INCONV Provider, MD Angus [address] [place] [id number] Social History Tobacco Use Types Packs/Day Years Used Date Smoking Tobacco: Never Comments Unknown Sex and Gender Information Value Date Recorded Sex Assigned at Not on file Legal Sex 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 Gender Identity Not on file Sexual Orientation [...] on filedocumented in this encounter Care Teams Dietitian Teacher Relationship Specialty Start Date End Date Viki Guardado MD [address] [place] [address] PCP - General Family Medicine 07/22/18 07/31/18 Monserrat Castro PA [address] [place] [address] PCP - General Critical Care Med 08/14/18 03/25/19 Monserrat Castro PA [address] [place] [address] PCP - General 08/01/18 08/13/18 Alexandra Tobias MD [address] [place] [address] PCP - General 03/26/19 Monserrat Castro PA [address] [place] [address] Physician Radiographer Critical Care Med 07/22/18 02/15/19 Viki Guardado MD [address] [place] [address] Consulting Physician Family Medicine 02/16/19 documented as of this encounter
--- OUTSIDE RECORDS SUMMARY | 2025-01-29 03:49 | XMS_ITS | Patient Health Record ---
Author Organization [facility] Address [address]. [address] [place] [address] Care Team Providers Care Executive Chef Name Role Phone Alexandra Tobias MD Primary [...] MOUTH TWICE A DAY Orally Twice a day; Duration: 90 days Active DULoxetine HCl Activ e Naltrexone Active Cyclobenzaprine HCl Active Social History Tobacco Use: Social History Observation Description Date Details (start date - stop date) Never Smoker NA - NA Tobacco Use/Smoking Question Answer Notes Are you a nonsmoker Problems Problem Type SNOMED Code ICD Code Onset Dates Problem Status W/U Status Risk Notes Problem Irritable bowel syndrome with diarrhea (679954895) Irritable bowel syndrome with diarrhea (K58.0) Active confirmed Patient rep orts an improvement in the quality of her stools since taking colestipol 1 g twice a day. She reports formed stools 1-2 times a day with minimal bloating. She is also on naltrexone daily. Her last colonoscopy in 2018 revealed a small polyp. She will be due in 2022 for colonoscopy. Problem Abdominal bloating (087135079) Abdominal bloating (R14.0) Active confirmed Pattie is n ow on a Mediterranean diet and seeing improvement with her bloating and inflammation related to fibromyalgia. She tested negative for SIBO recently. Other considerations include IBS, food intolerances, lactose intolerance, fructose intolerance, gynecologic etiology, and others. Problem Gastroesophageal reflux disease (066836006) Gastroesophageal reflux disease, unspecified whether esophagitis present [...] Insured Coverage Start Date Coverage End Date [facility] Choice/ choice Plus E2 [address] [place] [address] [id number] Delta Prince Spouse - patient is the spouse of the insured Medical (General) History Medical History History ICD Code IBS GERD Pancreatitis Colon Polyps Migraines Surgical History Surgery Date(Month/Year) Endoscopy (Outside Provider) 07/2019 Colonoscopy (Outside Provider) 02/2017 Cholecystectomy Uterine Ablation Right Knee Arthroscopy x2 Hospitalization History Reason Date(Month/Year) Pancreatitis 01/2021 Pancreatitis 03/2005 Fractured bones 07/2008 Anaphylaxis-penicillin
--- OUTSIDE RECORDS SUMMARY | 2025-01-29 03:49 | XMS_ITS | Clinical Summary ---
Author Organization [facility] Address [address] [place] [address] Care Team Providers Care Asbestos Abatement Technician Name Role Phone Alexandra Tobias MD Primary Care Provider [phone] Allergies Active Allergy Reactions Criticality Noted Date Comments Prochlorperazine Dystonia 01/18/2021 Penicillins Rash Low 01/18/2021 Medications cyclobenzaprine 10 MG tablet Take 10 mg by mouth 3 (three) times daily as needed. 12/28/19 21 Active medroxyPROGESTERon e injection Inject 150 mg into the muscle once. 12/06/19 21 Active DULoxetine 60 MG capsule Take 60 mg by mouth nightly. 12/14/19 21 Active AUVI-Q 0.3 MG/0.3ML injection Inject 0.3 mg into the muscle see administration instructions. 12/16/19 21 Active NALTREXONE HCL OR Take 4.5 mg by mouth nightly. Active cetirizine 10 MG tablet Take 10 mg by mouth 2 (two) times a day. Active vitamin D3, cholecalciferol, 5000 UNITS capsule Take 5,000 Units by mouth 2 (two) times a day. Active rimegepant (NURTEC) 75 MG disintegrating tablet Take 75 mg by mouth daily as needed for Migraine. Max of 3 tablets (75 mg) in a 24 hour period. Active NON FORMULARY Take 4.5 mg by mouth nightly at bedtime. Naltrexone 4.5 mg capsules (compounded product) Active traMADol 50 MG tabletIndications: Acute Pain < 3 Day Supply Take 1 tablet (50 mg total) by mouth every 6 (six) hours as needed for Pain. Indications: Acute Pain < 3 Day Supply 10 tablet 01/21/20 21 Active acetaminophen 325 MG tablet Take 2 tablets (650 mg total) by mouth every 4 (four) hours as needed for Pain. 30 tablet 01/21/20 21 Active Active Problems Problem Noted Date Diagnosed Date Pancreatitis 01/18/2021 Allergic rhinitis 04/09/2019 Dyspepsia 02/18/2019 History of obesity 09/12/2018 Shortness of breath 07/22/2018 Overview (01/18/2021): Last Assessment & Plan: PFTs, CXR both WNL PE WNL FH + CAD father at 51. Will check echo, and refer for cardiology evaluation Stop symbicort If testing is normal, consider anxiety as the etiology F/u 4 weeks If worsens, or chest pain occurs then she should present to the ER. She verbalized understanding. Anxiety 07/22/2018 Overview (01/18/2021): Last Assessment & Plan: Unchanged. Has a counseling appt tomorrow. Vitamin D insufficiency 05/20/2017 Overview (01/18/2021): Last Assessment & Plan: Taking 2,000iu vit d3 per day. Pure hypercholesterolemia 03/19/2017 Overview (01/18/2021): Last Assessment & Plan: Lipid abnormalities are unchanged. Nutritional counseling was provided. Lipids will be reassessed, will likely need to treat with a statin. Pt has so far not made any lifestyle changes. Irritant dermatitis 02/25/2017 Closed fracture of lumbar vertebra 09/16/2008 Family History Medical History Relation Comments COPD Father Cancer Father Heart Disease Father Arthritis Son 1 Relation Status Comments Brother Alive Father Mother Sister Alive Son 1 Alive Son 2 Alive Social History Tobacco Use Types Packs/Day Years Used Date Smoking Tobacco: Never Smokeless Tobacco: Never Alcohol Use Standard Drinks/Week Comments Yes 0 (1 standard drink = 0.6 oz pur e alcohol) socially Comments No Sex and Gender Information Value Date Recorded Sex Assigned at Not on file Legal Sex Female 7:07 PM CDT Gender Identity Not on file Sexual Orientation Not on file Last Filed Vital Signs Vital Sign Reading Time Taken Comments Blood Pressure 119/63 01/20/2021 4:08 AM CDT Pulse 90 01/20/2021 4:08 AM CDT Temperature 36.8 C (98.2 F) 01/20/2021 4:08 AM CDT Respiratory Rate 18 01/20/2021 4:08 AM CDT Oxygen Saturation 99% 01/20/2021 4:08 AM CDT Inhaled Oxygen Concentration - - Weight 88.8 kg (195 lb 12.3 oz) 01/20/2021 4:08 AM CDT Height 162.6 cm (5' 4) 01/18/2021 12:0 5 PM CDT Body Mass Index 33.6 01/18/2021 12:05 PM CDT Plan of Treatment Health Maintenance Due Date Last Done Comments Cervical Cancer Screening Pa p Smear (Age 30 to 64) Every 3 Years 1977 Colorectal Cancer Screening Colonoscopy (10 Years) 1977 Annual Physical 02/08/1980 Hepatitis C 1995 Hepatitis B Vaccines (1 of 3 - 19+ 3-dose series) 02/08/1996 Cervical Cancer Screening Pa p with HPV Testing (Age 30 to 64) Every 5 Years 2007 Cervical Cancer Screening wi th HPV 2007 Mammogram Screening 2017 COVID-19 Vaccine (3 - 2024-2 6 season) 2024 07/03/2020, 06/12/2020 Influenza Adult (#1) 2024 02/26/2019 DTaP, Tdap and Td Vaccines ( 2 - Td or Tdap) 02/26/2029 02/26/2019 Hepatitis A Vaccines Aged Out No long er eligible based on patient's age to complete this topic Meningococcal B Vaccine Aged Out No l onger eligible based on patient's age to complete this topic Meningococcal Vaccine Aged Out No zuly carol eligible based on patient's age to complete this topic Pneumococcal Vaccine: Pediatrics (0 to 5 Years) and At-Risk Patients (6 to 49 Years) Aged Out No longer eligible b ased on patient's age to complete this topic RSV Immunizations Under 20 Months Aged Out No longer eligible b ased on patient's age to complete this topic Goals Goal Patient Goal Type Associated Problems Recent Progress Patient-Stated? Author Monitor - able to maintain pain control General Chelo Mejia, BORDER PATROL OFFICERtrack layer head [facility] * Guarantor: Pattie Prince Account Type Relation to Patient Date of Phone Billing Address Personal/Family Self 1975 [address] [place] [address] Advance Directives * Full Code (Latest Code Status on File) Date Activated Date Inactivated Comments 01/18/2021 7:18 PM 01/20/2021 7:40 PM Care Teams Asbestos Abatement Technician Relationship Specialty Start Date End Date Alexandra Tobias MD [address] [place] [address] PCP - General INTERNAL MEDICINE 01/18/21
[2025-01-29 09:55] VITALS: BP 115/68; PULSE 88; RESP 18; TEMP 36.2; O2SAT 100
[2025-01-29 10:10] LABS: BEDSIDEPREGUCG Negative (Negative)
[2025-01-29] MEDS: LACTATED RINGERS 1,000 ML 150 ML IV CONT (10:10)
[2025-01-29] MEDS: SIMETHICONE ORAL SUSPENSION 20 MG/0.3 ML 30 ML BOTTLE 1.8 ML PO (10:12)
--- NOTE | 2025-01-29 10:35 | PM.IMHP ---
H&P: HPI History of Present Illness Date/Time: 01/29/25 10:35 Chief Complaint: GERD Narrative: Patient referred for upper endoscopy for recurrent regurgitation symptoms, especially after meals. She has rinses heartburn at night, not responding well pantoprazole and famotidine. There is no true dysphagia, since the patient can not swallow liquids and solids well. Review of Systems Review of Systems: All systems reviewed & are unremarkable except as noted in HPI and below PMFSH Past Medical History Medical History Peroneal neuritis Fracture of anterior process of calcaneus IBS (irritable bowel syndrome) Headache Gallbladder disorder Anxiety Allergies Obesity GERD (gastroesophageal reflux disease) Hyperlipidemia Chronic back pain Pancreatitis Surgical History Surgical History History of endometrial ablation History of cholecystectomy Hx laparoscopic cholecystectomy History of colonoscopy History of ERCP caused by pancreatitis History of knee replacement right knee 11/1994 and left knee 03/1995 Family History Family History Father Heart disease Bladder cancer Cancer Depression Grandparent Heart disease Cerebrovascular accident Kidney disease Alcoholism Hypertension Grandparent Cancer type unknown Other Cancer Depression Son Depression Social History Social History Smoking status: Never smoker Alcohol intake: current Drinks per week: 1 Substance use: never Substance use type: does not use Do You Feel Safe in your Home?: Yes Lack of Transportation: No Lack of Food: Never True Current Housing: I Have Housing Concerned About Future Housing: No Difficulty Paying Gas/Electric Bills: No Difficulty Paying for Meds: No Currently Unemployed: No Education: Bachelor's Degree Difficulty w/ Childcare or Family Care: No Living arrangements: with family Occupation/Education: occupation Additional occupation/education comments: [employer] Gender identity (if verbalized by the patient): Female Spiritual care concerns: No Meds Home Medications and Allergies Home Medications ?Medication ?Instructions ?Recorded ?Confirmed ?Type cetirizine 10 mg tablet (Zyrtec) 10 mg PO BID 08/03/19 01/29/25 History epinephrine 0.1 mg/0.1 mL 0.1 mg IM PRN PRN Anaphylaxis 10/18/21 01/27/25 History injection, auto-injector (Auvi-Q) fluticasone propionate 50 2 spray intranasal DAILY 10/18/21 01/29/25 History mcg/actuation nasal spray,suspension (Flonase Allergy Relief) drospirenone (contraceptive) 4 mg 1 tablet PO DAILY 07/04/22 01/29/25 History (28) tablet (Slynd) naltrexone 50 mg tablet 4.5 mg PO DAILY 07/04/22 01/29/25 History valacyclovir 1 gram tablet 1,000 mg PO Q12H #60 tabs 07/25/22 01/29/25 Rx (Valtrex) eszopiclone 2 mg tablet (Lunesta) 2 mg PO QHS #30 tabs 02/06/23 01/29/25 Rx Topical Compound See Rx Instructions topical 05/30/23 01/29/25 History .COMPLEX nueritec See Rx Instructions PO .COMPLEX 02/19/24 01/29/25 History oxybutynin chloride 5 mg tablet 5 mg PO DAILY 02/19/24 01/29/25 History fenofibrate 160 mg tablet See Rx Instructions .Route 08/19/24 01/29/25 Rx .COMPLEX #90 tabs duloxetine 60 mg capsule,delayed 60 mg PO DAILY 09/09/24 01/29/25 History release famotidine 20 mg tablet 20 mg PO BID #180 tabs 09/09/24 01/29/25 Rx levomefolate calcium 15 mg capsule 15 mg PO DAILY 09/09/24 01/29/25 History (Deplin FC) colestipol 1 gram tablet 1 g PO BID #180 tabs 11/12/24 01/29/25 Rx bupropion HCl 300 mg 24 hr tablet, 300 mg PO DAILY 12/09/24 01/29/25 History extended release digestive enzymes (Papaya 4 tablet PO DAILY 12/09/24 01/29/25 History Digestive Enzyme Complex chewable tablet) estroven See Rx Instructions BYMOUTH DAILY 12/09/24 01/29/25 History dexlansoprazole 60 mg 60 mg PO DAILY #90 caps 01/20/25 01/27/25 Rx capsule,biphase delayed release (Dexilant) pantoprazole 40 mg tablet,delayed 40 mg PO DAILY 01/27/25 01/29/25 History release Allergies Allergy/AdvReac Type Severity Reaction Status Date / Time prochlorperazine (From Allergy DYSTONIC Verified 01/29/25 09:50 Compazine) REACTION adhesive tape AdvReac SKIN Verified 01/29/25 09:50 IRRITATION Vital Signs Vital Signs - 24 hr 01/29/25 09:55 Temperature 97.1 F L Pulse Rate 88 Respiratory Rate 18 Blood Pressure 115/68 Pulse Oximetry 100 Oxygen Delivery Room Air Exam Const: General: cooperative and healthy appearing Resp: Effort & Inspection: normal respiratory effort and able to speak in complete sentences Auscultation: clear to auscultation bilaterally Cardio: Rate: regular rate Rhythm: regular rhythm GI: Inspection: normal to inspection GI Palp: No No hepatosplenomegaly present Auscultation: normal bowel sounds Rectal Exam: deferred Skin: General skin exam: normal color Psych: Appearance: grossly normal Mental Status: mental status grossly normal Assessment and Plan Assessment and plan (1) GERD (gastroesophageal reflux disease): Qualifiers: Esophagitis presence: esophagitis presence not specified Qualified Code(s): K21.9 - Gastro-esophageal reflux disease without esophagitis Code(s): K21.9 - Gastro-esophageal reflux disease without esophagitis Status: Acute Assessment and Plan: The patient is deemed a good candidate for the procedure. Consent signed. Will proceed.
--- NOTE | 2025-01-29 10:54 | S_PTH ---
PATIENT: Pattie Carlton LOC: [facility] U#:[id number] AGE/SX: 49/F ROOM: RE01/29/[address]: Last Burnette MD : 1975 BED: DIS: 01/29/2025 SPEC #: [id number] RECD: 01/29/25 13:37 STATUS: JOE REQ #: [id number] [place]: 01/29/25 10:[address]: Last Burnette DEPT: [facility] Surgical RECD BY: Sue Craig ENTERED: 01/29/25 13:38 SP TYPE: Surgical OTHR DR: Brenda Goddard, DO Tissues: A - Gastric Biopsy B - Gastric Biopsy C - Esophageal Biopsy Procedures: Hematoxylin and Eosin Stain Gross and Microscopic Level 4
[2025-01-29 10:55] VITALS: BP 119/74; PULSE 87; RESP 22; O2SAT 98
[2025-01-29 11:05] VITALS: BP 120/80; PULSE 88; RESP 21; O2SAT 100
[2025-01-29 11:15] VITALS: BP 120/81; PULSE 84; RESP 22; O2SAT 100
== END 2025-01-29 11:24 | disposition home or self-care (01) ==
PROVIDERS: PCP Family Medicine; Referring Provider Nurse Practitioner; Visit Provider Internal Medicine Gastroenterology
PROC: 0DJ08ZZ Inspection of Upper Intestinal Tract, Via Natural or Artificial Opening Endoscopic (ICD-10-PCS; CPT 43239; principal; 2025-01-29 11:00)
DX: K21.9 Gastro-esophageal reflux disease without esophagitis (principal); K31.7 Polyp of stomach and duodenum; K58.9 Irritable bowel syndrome, unspecified; F41.9 Anxiety disorder, unspecified; E78.5 Hyperlipidemia, unspecified; G89.29 Other chronic pain; M54.9 Dorsalgia, unspecified; Z98.890 Other specified postprocedural states; Z90.49 Acquired absence of other specified parts of digestive tract; Z98.891 History of uterine scar from previous surgery; Z80.52 Family history of malignant neoplasm of bladder; Z82.49 Family history of ischemic heart disease and other diseases of the circulatory system
CPT/HCPCS: 43239; 88305; J2003; J2704; J7120

== ENCOUNTER 2025-02-23 16:58 | Emergency (ER) | payer OTHER, SELFPAY ==
--- OUTSIDE RECORDS SUMMARY | 2024-01-15 07:00 | XMS_ITS ---
Author Organization [facility] [employer] Address [address] [place] [address] Care Team Providers Care Uat Tester Name Role Phone Brenda GUERRERO DO Primary Care Provider Elisa Stephens Unavailable [phone] Shelly Suarez Unavailable [phone] Medications Medication SIG (Take, Route, Frequency, Duration) Notes Start Date End Date Status buPROPion HCl ER (XL) 300 MG Tablet Extended Release 24 Hour 1 tablet in the morning Oral Once a day; Duration: 30 days also already sent a 90 day script on 09/03 Active DULoxetine HCl 60 MG Capsule Delayed Release Particles 1 capsule Oral Once a day; Duration: 90 days Active buPROPion HCl ER (XL) 300 MG Tablet Extended Release 24 Hour 1 tablet every morning Oral Once a day; Duration: 90 days Active Pantoprazole Sodium 40 MG Tablet Delayed Release Oral 08/02/2023 Not-Taking Deplin 15 15-90.314 MG Capsule 1 capsule Oral Once a day; Duration: 90 days Active Pantoprazole Sodium 20 MG Tablet Delayed Release Oral 08/02/2023 Active SLYND 4 MG (28) TABLET *Reorder from [employer]vy Interactive Video for eRx and Interaction Alerts* 08/02/2023 Active Colestipol HCl 1 GM Tablet Oral 08/02/2023 Active Eszopiclone 2 MG Tablet Oral 08/02/2023 Active valACYclovir HCl 1 GM Tablet Oral 08/02/2023 Active Naltrexone *Pick strength-form from [employer]vy Interactive Video for eRX* 08/02/2023 Active Social History Sex Assigned At : Social History Observation Description Sex Assigned At Female Encounters Encounter Location Date Provider Diagnosis [facility] [address] [place] [address] 01/15/2024 Shelly Suarez Plan Of Treatment Next Appt Details Provider Name:Elisa Gregory, 05/05/2025 01:45:00 PM, [address], [place], [address], Progress Notes * RASHARD GARCIAIDOB: 7 (50 yo F)Acc No.[id number]:01/15/2024 Patient: Marimar EneJELENAVANESSA MONTES Provider: Stefany SUAREZ LCSW :1975 A ge:48 Y S ex:Female Date:01/15/2024 [facility] Pcp:Brenda GUERRERO DO Data: * Chief Complaints: * Medications: T akingNaltrexone , Notes to Pharmacist: *Pick strength-form from Venvy Interactive Video for eRX*Pantoprazole Sodium 20 MG Tablet Delayed Release Oral Colestipol HCl 1 GM Tablet Oral SLYND 4 MG (28) TABLET , Notes to Pharmacist: *Reorder from Afluentaan for eRx and Interaction Alerts*valACYclovir HCl 1 GM Tablet Oral Eszopiclone 2 MG Tablet Oral buPROPion HCl ER (XL) 300 MG Tablet Extended Release 24 Hour 1 tablet in the morning Oral Once a day , Notes to Pharmacist: also already sent a 90 day script on 09/03buPROPion HCl ER (XL) 300 MG Tablet Extended Release 24 Hour 1 tablet every morning Oral Once a day DULoxetine HCl 60 MG Capsule Delayed Release Particles 1 capsule Oral Once a day Deplin 15 15-90.314 MG Capsule 1 capsule Oral Once a day Taking Naltrexone , Notes to Pharmacist: *Pick strength-form from Afluentaan for eRX*Taking Pantoprazole Sodium 20 MG Tablet Delayed Release Oral Taking Colestipol HCl 1 GM Tablet Oral Taking SLYND 4 MG (28) TABLET , Notes to Pharmacist: *Reorder from Afluentaan for eRx and Interaction Alerts*Taking valACYclovir HCl 1 GM Tablet Oral Taking Eszopiclone 2 MG Tablet Oral Taking buPROPion HCl ER (XL) 300 MG Tablet Extended Release 24 Hour 1 tablet in the morning Oral Once a day , Notes to Pharmacist: also already sent a 90 day script on 09/03Taking buPROPion HCl ER (XL) 300 MG Tablet Extended Release 24 Hour 1 tablet every morning Oral Once a day Taking DULoxetine HCl 60 MG Capsule Delayed Release Particles 1 capsule Oral Once a day Taking Deplin 15 15-90.314 MG Capsule 1 capsule Oral Once a day Not-TakingPantoprazole Sodium 40 MG Tablet Delayed Release Oral Not-Taking Pantoprazole Sodium 40 MG Tablet Delayed Release Oral Plan: * Procedure Codes: N STHR NO SHOW THERAPY Billing Information: * Procedure Codes: NSTHR NO SHOW THERAPY. * Electronic signature of Aminta Suarez LCSW on 02/23/2025 at 07:03 PM RECEIVER/LABORER Sign off status: Pending Signatures: No Ad Hoc Signature Added * Provider: Stefany SUAREZ LCSW Date: Generated for Mekhi brennan/Ugo/Dian on: 04/26/2024 07:03 PM RECEIVER/LABORER
--- OUTSIDE RECORDS SUMMARY | 2024-04-27 08:00 | XMS_ITS ---
Author Organization [facility] [id number] [facility] Address [facility] [facility] [address] [place] [address] Care Team Providers Care Welder Fitter Arc Name Role Phone Brenda GUERRERO DO Primary Care Provider Elisa Stephens Unavailable [phone] Shelly Suarez Unavailable [phone] Social History Sex Assigned At : Social History Observation Description Sex Assigned At Female Encounters Encounter Location Date Provider Diagnosis [facility] [employer] [place] [address] [facility] [address] [place] [address] 04/27/2024 Shelly Suarez Plan Of Treatment Next Appt Details Provider Name:Elisa Gregory, 05/05/2025 01:45:00 PM, [facility], [facility] [address], [place], [address], Progress Notes * RASHARD GARCIAIDOB: 7 (50 yo F)Acc No.[id number]:04/27/2024 Patient: VANESSA HOLLOWAY Provider: Stefany SUAREZ LCSW :1975 A ge:49 Y S ex:Female Date:04/27/2024 Address[address] [facility] Pcp:Brenda GUERRERO DO * Electronic signature of Aminta Suarez LCSW on 02/23/2025 at 07:04 PM POULTRY HUSBANDRY TEACHER Sign off status: Pending Signatures: No Ad Hoc Signature Added * Provider: Stefany SUAREZ LCSW Date: 0 04/27/2024 Generated for Mekhi brennan/Zac on: 1 04/26/2024 07:04 PM POULTRY HUSBANDRY TEACHER
--- NOTE | ~2025-02-23 | XR_ITS ---
EXAMINATION: XR chest 2V, 02/23/2025 17:35 ROLL CAPPER HISTORY: chest pain SOB COMPARISON: No comparisons available. Technique: 2 views obtained. Findings: The lungs are clear, no effusion. No pneumothorax. Heart is normal size. Mediastinal and hilar contours are within normal limits. Bony thorax no acute abnormality. Impression: No acute cardiopulmonary abnormality. Reviewed, dictated and finalized at location P. CAPPER Impression: No acute cardiopulmonary abnormality.
[2025-02-23 17:08] VITALS: BP 139/86; PULSE 119; RESP 20; TEMP 36.5; O2SAT 100
--- NOTE | 2025-02-23 17:22 | ECG_ITS ---
Test Date: 2025-02-23 17:28:04 Measurements Intervals [place] Rate: 106 P: 50 VT: 179 QRS: 24 QRSD: 97 T: 7 QT: 333 QTc: 443 Interpretive Statements SINUS TACHYCARDIA ST-T WAVE ABNORMALITY IN ANTERIOR LEADS- CONSIDER ISCHEMIA BASELINE ARTIFACT- I, II, III, AVR, AVL, AVF, V1-V6 ABNORMAL ECG No previous ECG available for comparison Electronically Signed On 02-23-2025 18:59:41 CRACKER OFF by Manuel Olvera D.O.
--- NOTE | 2025-02-23 17:27 | ED.SOB ---
HPI - SOB/Dyspnea General Chief Complaint: Shortness of Breath/Dyspnea <Vero Blanco PA-C - Last Filed: 02/23/25 17:50> Stated Complaint: elevated HR/SOB <Vero Blanco PA-C - Last Filed: 02/23/25 17:50> Time Seen by Provider: 02/23/25 17:30 <Vero Blanco PA-C - Last Filed: 02/23/25 17:50> Focused HPI: Patient is a 50-year-old female who presents the ED with report of shortness breath and elevated heart rate. Patient reports since Saturday, she has been having pain throughout her midsternal and left-sided chest. Radiating into her bilateral ears and jaw. Describes heartburn sensation and sensation like something is stuck in her chest. Has history of GERD, but states this does not feel similar. Also reports having shortness of breath. States today her heart rate has been elevated today up into the 140s. States she has been checking this on her watch. States her heart rate is typically in the 90s. Denies recent fever, cough. GENERAL: Mildly anxious-appearing, well-nourished, and in no acute distress. HEAD: Normocephalic, atraumatic. CHEST: Clear to auscultation. ?No respiratory distress. HEART: Tachycardic with regular rhythm.? NEURO: ?Alert and oriented x3. Patient screened in triage and initial orders placed.? ?Additional care and disposition to be based upon?diagnostic testing and treatment. <Vero Blanco PA-C - Last Filed: 02/23/25 17:50> Source: patient <Vero Blanco PA-C - Last Filed: 02/23/25 17:50> Mode of arrival: ambulatory <Vero Blanco PA-C - Last Filed: 02/23/25 17:50> Limitations: no limitations <Vero Blanco PA-C - Last Filed: 02/23/25 17:50> History of Present Illness HPI Narrative: I agree with the above HPI <Earl Zapata MD - Last Filed: 02/24/25 02:59> Related Data Home Medications: Home Medications ?Medication ?Instructions ?Recorded ?Confirmed ?Last Taken ?Type cetirizine 10 mg tablet (Zyrtec) 10 mg PO BID 08/03/19 01/29/25 01/28/25 History epinephrine 0.1 mg/0.1 mL 0.1 mg IM PRN PRN Anaphylaxis 10/18/21 01/27/25 03/08/22 History injection, auto-injector (Auvi-Q) fluticasone propionate 50 2 spray intranasal DAILY 10/18/21 01/29/25 01/28/25 History mcg/actuation nasal spray,suspension (Flonase Allergy Relief) drospirenone (contraceptive) 4 mg 1 tablet PO DAILY 07/04/22 01/29/25 01/28/25 History (28) tablet (Slynd) naltrexone 50 mg tablet 4.5 mg PO DAILY 07/04/22 01/29/25 01/28/25 History Topical Compound See Rx Instructions topical 05/30/23 01/29/25 01/15/25 History .COMPLEX nueritec See Rx Instructions PO .COMPLEX 02/19/24 01/29/25 01/28/25 History oxybutynin chloride 5 mg tablet 5 mg PO DAILY 02/19/24 01/29/25 01/28/25 History duloxetine 60 mg capsule,delayed 60 mg PO DAILY 09/09/24 01/29/25 01/28/25 History release levomefolate calcium 15 mg capsule 15 mg PO DAILY 09/09/24 01/29/25 01/28/25 History (Deplin FC) bupropion HCl 300 mg 24 hr tablet, 300 mg PO DAILY 12/09/24 01/29/25 01/28/25 History extended release digestive enzymes (Papaya 4 tablet PO DAILY 12/09/24 01/29/25 01/28/25 History Digestive Enzyme Complex chewable tablet) estroven See Rx Instructions BYMOUTH DAILY 12/09/24 01/29/25 01/28/25 History pantoprazole 40 mg tablet,delayed 40 mg PO DAILY 01/27/25 01/29/25 01/28/25 History release <Vero Blanco PA-C - Last Filed: 02/23/25 17:50> Allergies/Adverse Reactions: Allergies Allergy/AdvReac Type Severity Reaction Status Date / Time prochlorperazine (From Allergy DYSTONIC Verified 02/23/25 18:46 Compazine) REACTION adhesive tape AdvReac SKIN Verified 02/23/25 18:46 IRRITATION <Vero Blanco PA-C - Last Filed: 02/23/25 17:50> Review of Systems Review of Systems: All systems reviewed & are unremarkable except as noted in HPI and below <Earl Zapata MD - Last Filed: 02/24/25 02:59> [facility] Past Medical History Medical History: Medical History Peroneal neuritis Fracture of anterior process of calcaneus IBS (irritable bowel syndrome) Headache Gallbladder disorder Anxiety Allergies Obesity GERD (gastroesophageal reflux disease) Hyperlipidemia Chronic back pain Pancreatitis <Vero Blanco PA-C - Last Filed: 02/23/25 17:50> Surgical History Surgical History: Surgical History History of endometrial ablation History of cholecystectomy Hx laparoscopic cholecystectomy History of colonoscopy History of ERCP caused by pancreatitis History of knee replacement right knee 11/1994 and left knee 03/1995 <Vero Blanco PA-C - Last Filed: 02/23/25 17:50> Family History Family History: Family History Father Heart disease Bladder cancer Cancer Depression Grandparent Heart disease Cerebrovascular accident Kidney disease Alcoholism Hypertension Grandparent Cancer type unknown Other Cancer Depression Son Depression <Vero Blanco PA-C - Last Filed: 02/23/25 17:50> Social History Social History: Social History Smoking status: Never smoker Alcohol intake: current Drinks per week: 1 Substance use: never Substance use type: does not use Lack of Transportation: No Lack of Food: Never True Current Housing: I Have Housing Concerned About Future Housing: No Difficulty Paying Gas/Electric Bills: No Difficulty Paying for Meds: No Currently Unemployed: No Education: Bachelor's Degree Difficulty w/ Childcare or Family Care: No Living arrangements: with family Occupation/Education: occupation Additional occupation/education comments: [employer] Gender identity (if verbalized by the patient): Female Spiritual care concerns: No <Vero Blanco PA-C - Last Filed: 02/23/25 17:50> Exam Narrative: APPEARANCE: Well appearing, no pain, no distress, well-nourished. HEAD: normocephalic, atraumatic. EYES: PERRLA/EOMI, conjunctivae clear. NOSE: Normal no drainage EARS:TMS clear with good light reflex. THROAT: Pharynx clear, no exudate. NECK: Supple. No adenopathy, no masses. RESPIRATORY: Airway patent, respirations nonlabored. Clear to auscultation bilaterally, no rales, rhonchi, wheezing. CARDIOVASCULAR: Regular rate and rhythm without murmurs rubs or gallops. ABDOMINAL: Soft, nontender, nondistended, normal bowel sounds MUSCULOSKELETAL: Moves all extremities. Strength/ROM intact, No edema, No calf tenderness. NEURO: Alert. Cranial nerves II through XII intact. Good gait. Good coordination SKIN: Warm, dry. Normal Color <Earl Zapata MD - Last Filed: 02/24/25 02:59> Course Vital Signs Vital signs: Vital Signs Temperature 97.7 F 02/23/25 17:08 Pulse Rate 119 H 02/23/25 17:08 Respiratory Rate 20 02/23/25 17:08 Blood Pressure 139/86 02/23/25 17:08 Pulse Oximetry 100 02/23/25 17:08 Oxygen Delivery Room Air 02/23/25 17:08 Temperature 97.7 F 02/23/25 17:08 Pulse Rate 105 H 02/23/25 20:53 Respiratory Rate 14 02/23/25 20:53 Blood Pressure 122/78 02/23/25 20:53 Pulse Oximetry 100 02/23/25 20:53 Oxygen Delivery Room Air 02/23/25 18:42 <Vero Blanco PA-C - Last Filed: 02/23/25 17:50> Vital Signs Temperature 97.7 F 02/23/25 17:08 Pulse Rate 119 H 02/23/25 17:08 Respiratory Rate 20 02/23/25 17:08 Blood Pressure 139/86 02/23/25 17:08 Pulse Oximetry 100 02/23/25 17:08 Oxygen Delivery Room Air 02/23/25 17:08 Temperature 97.7 F 02/23/25 17:08 Pulse Rate 105 H 02/23/25 20:53 Respiratory Rate 14 02/23/25 20:53 Blood Pressure 122/78 02/23/25 20:53 Pulse Oximetry 100 02/23/25 20:53 Oxygen Delivery Room Air 02/23/25 18:42 <Earl Zapata MD - Last Filed: 02/24/25 02:59> [facility] Narrative Medical decision making narrative: MSE by AMARILYS in triage <Vero Blanco PA-C - Last Filed: 02/23/25 17:50> MSE by AMARILYS in triage 50-year-old female present emergency department for evaluation for tachycardia. Patient states her heart rate typically in the 90s but was more elevated today. Patient states she has had some nausea over the last few days possible decreased p.o. intake. Patient denies any increased anxiety. Patient is currently afebrile no leukocytosis hemoglobin 12.6. INR 1.0 D-dimer of less than 0.27. No acute abnormalities on her CMP. Troponin was negative. TSH was within normal limits. Chest x-ray shows no acute cardiopulmonary abnormality. Patient states she is still having some nausea. Patient was treated with IV fluids along with some IV Zofran. Patient's heart rate had improved with rehydration. Patient was encouraged close follow-up with primary care physician. All questions are addressed. Do suspect dehydration, sinus tachycardia and anxiety as etiology for her tachycardia. Low concern for pneumonia, pneumothorax pulmonary embolism, SVT <Earl Zapata MD - Last Filed: 02/24/25 02:59> Differential Diagnosis Differential Diagnosis: Pulmonary embolism, pneumonia sinus tachycardic dehydration, SVT <Earl Zapata MD - Last Filed: 02/24/25 02:59> Lab Data [facility] Lab Attestation statement: I personally reviewed the patient's lab results. <Earl Zapata MD - Last Filed: 02/24/25 02:59> Result diagrams: 02/23/25 17:31 02/23/25 17:31 <Vero Blanco PA-C - Last Filed: 02/23/25 17:50> Labs: Lab Results 02/23/25 02/23/25 Range/Units 17:30 17:31 WBC 6.7 (4.5-10.0) K/mm3 RBC 3.99 L (4.2-5.4) M/mm3 Hgb 12.6 (12.0-15.0) g/dL Hct 37.1 (37.0-47.0) % MCV 93.0 (80-100) fl MCH 31.6 (26-34) pg MCHC 34.0 (32-36) g/dl RDW 12.3 (11.5-14.5) % Plt Count 346 (150-375) k/mm3 MPV 9.8 (7.4-10.4) fl Immature Gran % (Auto) 0.3 (0-0.5) % Neut % (Auto) 56.8 (45.5-73.1) % Lymph % (Auto) 36.8 (18.3-44.2) % [place] % (Auto) 4.8 (2.6-8.5) % Eos % (Auto) 0.9 (0-4.4) % Baso % (Auto) 0.4 (0.2-1.2) % Lymph # (Auto) 2.47 (0.9-3.2) K/mm3 [place] # (Auto) 0.3 (0.1-0.6) K/mm3 Eos # (Auto) 0.1 (0-0.3) K/mm3 Baso # (Auto) 0.0 (0.0-0.1) K/mm3 Abs Immat Gran (auto) 0.02 (0.00-0.031) K/mm3 Absolute Neuts (auto) 3.8 (1.3-6.7) K/mm3 Absolute Nucleated RBC 0.000 (0.0-0.012) K/mm3 Nucleated RBC % 0.0 (0.0-0.2) % PT 13.2 (11.1-14.7) Seconds INR 1.0 APTT 27.2 (22.3-36.8) Seconds D-Dimer < 0.27 (<0.48) ug/mL Sodium 138 (137-145) mmol/L Potassium 3.6 (3.4-5.0) mmol/L Chloride 105 (98-107) mmol/L Carbon Dioxide 24 (22-30) mmol/L Anion Gap 9 (4-12) mmol/L BUN 12 D (7-17) mg/dL Creatinine 0.62 L (0.7-1.0) mg/dL Estim Creat Clear Calc 100 ml/min Estimated GFR > 60 (59 - ) Glucose 92 (65-110) mg/dL Calcium 9.9 (8.4-10.2) mg/dL Magnesium 1.9 (1.6-2.3) mg/dL Total Bilirubin 0.5 (0.2-1.3) mg/dL AST 27 (14-36) U/L ALT 22 (6-35) U/L Alkaline Phosphatase 66 (38-126) U/L Troponin I < 0.012 (0.000-0.034) ng/mL Total Protein 8.4 H (6.3-8.2) g/dL Albumin 4.8 (3.5-5.1) g/dL Lipase 109 (23-300) U/L TSH (Reflex) 1.090 (0.465-4.68) uIU/mL <Vero Blanco PA-C - Last Filed: 02/23/25 17:50> Lab Results 02/23/25 02/23/25 Range/Units 17:30 17:31 WBC 6.7 (4.5-10.0) K/mm3 RBC 3.99 L (4.2-5.4) M/mm3 Hgb 12.6 (12.0-15.0) g/dL Hct 37.1 (37.0-47.0) % MCV 93.0 (80-100) fl MCH 31.6 (26-34) pg MCHC 34.0 (32-36) g/dl RDW 12.3 (11.5-14.5) % Plt Count 346 (150-375) k/mm3 MPV 9.8 (7.4-10.4) fl Immature Gran % (Auto) 0.3 (0-0.5) % Neut % (Auto) 56.8 (45.5-73.1) % Lymph % (Auto) 36.8 (18.3-44.2) % [place] % (Auto) 4.8 (2.6-8.5) % Eos % (Auto) 0.9 (0-4.4) % Baso % (Auto) 0.4 (0.2-1.2) % Lymph # (Auto) 2.47 (0.9-3.2) K/mm3 [place] # (Auto) 0.3 (0.1-0.6) K/mm3 Eos # (Auto) 0.1 (0-0.3) K/mm3 Baso # (Auto) 0.0 (0.0-0.1) K/mm3 Abs Immat Gran (auto) 0.02 (0.00-0.031) K/mm3 Absolute Neuts (auto) 3.8 (1.3-6.7) K/mm3 Absolute Nucleated RBC 0.000 (0.0-0.012) K/mm3 Nucleated RBC % 0.0 (0.0-0.2) % PT 13.2 (11.1-14.7) Seconds INR 1.0 APTT 27.2 (22.3-36.8) Seconds D-Dimer < 0.27 (<0.48) ug/mL Sodium 138 (137-145) mmol/L Potassium 3.6 (3.4-5.0) mmol/L Chloride 105 (98-107) mmol/L Carbon Dioxide 24 (22-30) mmol/L Anion Gap 9 (4-12) mmol/L BUN 12 D (7-17) mg/dL Creatinine 0.62 L (0.7-1.0) mg/dL Estim Creat Clear Calc 100 ml/min Estimated GFR > 60 (59 - ) Glucose 92 (65-110) mg/dL Calcium 9.9 (8.4-10.2) mg/dL Magnesium 1.9 (1.6-2.3) mg/dL Total Bilirubin 0.5 (0.2-1.3) mg/dL AST 27 (14-36) U/L ALT 22 (6-35) U/L Alkaline Phosphatase 66 (38-126) U/L Troponin I < 0.012 (0.000-0.034) ng/mL Total Protein 8.4 H (6.3-8.2) g/dL Albumin 4.8 (3.5-5.1) g/dL Lipase 109 (23-300) U/L TSH (Reflex) 1.090 (0.465-4.68) uIU/mL <Earl Zapata MD - Last Filed: 02/24/25 02:59> Imaging Data Radiologist's impression: ITS Impressions Chest X-Ray 02/23/25 17:47 Impression: No acute cardiopulmonary abnormality. <Vero Blanco PA-C - Last Filed: 02/23/25 17:50> ITS Impressions Chest X-Ray 02/23/25 17:47 Impression: No acute cardiopulmonary abnormality. <Earl Zapata MD - Last Filed: 02/24/25 02:59> Discharge Plan Discharge Clinical Impression: Tachycardia, Nausea <Vero Blanco PA-C - Last Filed: 02/23/25 17:50> Patient Disposition: Home <Vero Blanco PA-C - Last Filed: 02/23/25 17:50> Condition: Stable <Vero Blanco PA-C - Last Filed: 02/23/25 17:50> Instructions: Antibiotic Form <WILLIAM Armenta Last Filed: 02/23/25 17:50> Additional Instructions: Zofran as needed for nausea control. Have close follow-up with your primary care physician for additional outpatient cardiac testing. If you have any worsening symptoms then please call or return to the emergency department. <Vero Blanco PA-C - Last Filed: 02/23/25 17:50> Patient Language: Bengali <Vero Blanco PA-C - Last Filed: 02/23/25 17:50> Prescriptions: New ondansetron 4 mg tablet,disintegrating 4 mg PO Q8H PRN (Reason: nausea and vomiting) Qty: 14 0RF No Action Topical Compound See Rx Instructions topical .COMPLEX Rx Instructions: TOPICAL COMPOUND TO AREA PRN PAIN topically; Use for pain and inflammation PRN oxybutynin chloride 5 mg tablet 5 mg PO DAILY Patient Comments: 1/2 tab in the AM and 1/2 tab in the PM nueritec See Rx Instructions PO .COMPLEX Rx Instructions: 75mg daily orally; duloxetine 60 mg capsule,delayed release(DR/EC) 60 mg PO DAILY Patient Comments: take QPM Deplin FC 15 mg capsule 15 mg PO DAILY famotidine 20 mg tablet 20 mg PO BID Qty: 180 1RF Auvi-Q 0.1 mg/0.1 mL auto-injector 0.1 mg IM PRN PRN (Reason: Anaphylaxis) fluticasone propionate [Flonase Allergy Relief] 50 mcg/actuation spray,suspension 2 spray intranasal DAILY Rx Instructions: administer into each nostril Slynd 4 mg (28) tablet 1 tablet PO DAILY naltrexone 50 mg tablet 4.5 mg PO DAILY Patient Comments: [facility] [Valtrex] 1 gram tablet 1,000 mg PO Q12H Qty: 60 0RF bupropion HCl 300 mg tablet extended release 24 hr 300 mg PO DAILY Papaya Digestive Enzyme Cmplx Tablet,Chewable 4 tablet PO DAILY estroven See Rx Instructions BYMOUTH DAILY Rx Instructions: 1 TAB PO DAILY OTC orally daily; dexlansoprazole [Dexilant] 60 mg capsule,biphase delayed releas 60 mg PO DAILY Qty: 90 3RF cetirizine [Zyrtec] 10 mg Tablet 10 mg PO BID pantoprazole 40 mg tablet,delayed release (DR/EC) 40 mg PO DAILY eszopiclone [Lunesta] 2 mg tablet 2 mg PO QHS Qty: 30 1RF colestipol 1 gram tablet 1 g PO BID Qty: 180 1RF fenofibrate 160 mg tablet See Rx Instructions .ROUTE .COMPLEX Qty: 90 1RF Dose Instruction: TAKE 1 TABLET BY MOUTH DAILY Rx Instructions: TAKE 1 TABLET BY MOUTH DAILY <Vero Blanco PA-C - Last Filed: 02/23/25 17:50> Follow-up/Referrals: Brenda Goddard DO [Primary Care Provider, Family Practice] <Vero Blanco PA-C - Last Filed: 02/23/25 17:50>
[2025-02-23 17:48] LABS: Hematocrit 37.1 % (37.0-47.0); Hemoglobin 12.6 g/dL (12.0-15.0); Immature Granulocyte Percent A 0.3 % (0-0.5); Lymphocytes Absolute Auto 2.47 K/mm3 (0.9-3.2); Mean Corpuscular HGB Conc 34.0 g/dl (32-36); Mean Corpuscular Hemoglobin 31.6 pg (26-34); Mean Corpuscular Volume 93.0 fl (80-100); Nucleated Red Blood Cells Absolute Auto 0.000 K/mm3 (0.0-0.012); Nucleated Red Blood Cells Perc 0.0 % (0.0-0.2); Platelet Count Result 346 k/mm3 (150-375); Red Blood Count 3.99 M/mm3 (4.2-5.4); White Blood Count 6.7 K/mm3 (4.5-10.0)
[2025-02-23 17:55] LABS: Alanine Aminotransferase 22 U/L (6-35); Albumin Level 4.8 g/dL (3.5-5.1); Alkaline Phosphatase 66 U/L (38-126); Anion Gap 9 mmol/L (4-12); Aspartate Amino Transferase 27 U/L (14-36); Bilirubin,Total 0.5 mg/dL (0.2-1.3); Blood Urea Nitrogen 12 mg/dL (7-17); Calcium 9.9 mg/dL (8.4-10.2); Carbon Dioxide 24 mmol/L (22-30); Chloride 105 mmol/L (98-107); Estimated CRCL calculation 100 ml/min; Estimated Glomerular Filt Rate > 60; Glucose 92 mg/dL (65-110); Lipase 109 U/L (23-300); Potassium 3.6 mmol/L (3.4-5.0); Sodium 138 mmol/L (137-145); Total Protein 8.4 g/dL (6.3-8.2)
[2025-02-23 17:58] LABS: INR 1.0; Prothrombin Time 13.2 Seconds (11.1-14.7)
--- NOTE | 2025-02-23 17:58 | PC.NURSE ---
lab called at this time to add on lab orders that were ordered to the bloodwork that was sent to lab previously
[2025-02-23 17:59] LABS: Partial Thromboplastin Time 27.2 Seconds (22.3-36.8)
[2025-02-23 18:12] LABS: Magnesium 1.9 mg/dL (1.6-2.3); Troponin I < 0.012 ng/mL (0.000-0.034)
[2025-02-23 18:42] VITALS: BP 150/72; PULSE 105; RESP 16; O2SAT 100
[2025-02-23 18:42] LABS: Thyroid Stimulating Hormone Reflex 1.090 uIU/mL (0.465-4.68)
[2025-02-23 19:00] VITALS: BP 150/72; PULSE 108; RESP 14; O2SAT 100
--- OUTSIDE RECORDS SUMMARY | 2025-02-23 19:03 | XMS_ITS | Clinical Summary ---
Author Organization [address] Address [address] [place] [id number] Care Team Providers Care Lpn Instructor Name Role Phone Viki Guardado MD Unavailable [phone] Alexandra Tobias MD Primary Care Provider [phone] Allergies Active Allergy Reactions Criticality Noted Date Comments Penicillins Anaphylaxis High Prochlorperazine Other (See comments) Low Dystonia Medications fluticasone propionate (FLONASE NASL) daily Activ e multivitamin tablet,chewable Take by mouth Active olopatadine (PATADAY) 0.2 % ophthalmic solutionIndication s:Allergic Conjunctivitis Administer 1 drop into both eyes daily 2.5 mL 5 0 Active [id number] emeka oil 600-1,200 mg capsule Take by [...] 04/01/2024 Assessment & Plan (04/01/2024 2:54 PM CLAIMS ACCOUNT MANAGER): Discussed the menopause transition and typical symptoms. [...] 02/26/2019 Assessment & Plan (02/26/2019 1:26 PM CLAIMS ACCOUNT MANAGER): Exercise 5 days a week, 30 mins [...] Maternal Grandfather Danilo Hearing loss Maternal Grandmother Central Miscarriages / Stillbirths Maternal Grandmother Central Alcohol abuse Paternal Grandfather Salvadorean Heart attack Paternal Grandmother Preeti Miscarriages / Stillbirths Paternal Grandmother Preeti Stroke Paternal Grandmother Preeti Relation Name Status Comments Father Rob bladder cancer Father's Sister 1 Niki Father's Sister 2 Emmett Father's Sister 3 Jolynn Maternal Grandfather Danilo skin an d prostate cancer Maternal Grandmother Central Alive Mother Paternal Grandfather Salvadorean Paternal Grandmother Preeti lupus Social History Tobacco [...] on file Legal Sex Female 7:03 AM CLAIMS ACCOUNT MANAGER Gender Identity Not on file Sexual Orientation Not on file Obstetrics History Para Term AB IAB SAB Ectopic Multiple Livin g Live Births 2 2 2 2 Date Outcome GA Total Labor Labor/2nd/3rd Weight Sex Type Anes PTL [place] A1 A5 Name Clin Term Term Last Filed Vital Signs Vital Sign Reading Time Taken Comments Blood Pressure 110/74 04/01/2024 2:16 PM CLAIMS ACCOUNT MANAGER Pulse 77 04/21/2019 1:07 PM CLAIMS ACCOUNT MANAGER Temperature 36.3 C (97.4 F) 04/21/2019 1:07 PM CLAIMS ACCOUNT MANAGER Respiratory Rate 16 02/26/2019 10:12 AM CLAIMS ACCOUNT MANAGER Oxygen Saturation 99% 04/21/2019 1:07 PM CLAIMS ACCOUNT MANAGER Inhaled Oxygen Concentration - - Weight 87.2 kg (192 lb 3.2 oz) 04/01/2024 2:16 P M CLAIMS ACCOUNT MANAGER Height 162.6 cm (5' 4.02) 04/01/2024 2:16 PM CS T Body Mass Index 32.97 04/01/2024 2:16 PM CLAIMS ACCOUNT MANAGER Plan of Treatment Health Maintenance Due Date [...] 07/13/20 1307 Age: 45 Sex: Female MR#: [id number] Loc: RADIOLOGY REPORT Order #[id number] [facility] Andrew Bilat Screening 3D Signed - MG [...] mammogram, 12/06/2017 mammogram, and 04/10/2017 mammogram - [facility]. BREAST TISSUE: The tissue of both [...] age 42, based on guidelines of the [place] [employer] (ACR Practice Parameter for the Performance of Screening and Diagnostic Mammography) and [place] [employer]. For women with an elevated risk of breast cancer, please refer to the ACR Practice Parameter for specific screening recommendations. The patient will be entered into a reminder system with a target due date of 1 year for her next screening exam. Electronically signed by: Vlad diaz/sofy:07/13/2020 14:00:31 Roving Frame Tender: Gabriela Grijalva RT(R)(M), [facility] letter sent: Normal Exam Reading location: BI-RADS: 1 Negative REPORT ELECTRONICALLY SIGNED IN OTHER VENDOR SYSTEM Resulting Agency Comment O Procedure Note Vlad Thornton MD - 07/13/2020 Patient Name: PATTIE RPINCE Dr: Alexandra Tobias MD D.O.B: 1975 Exam Date: 07/13/20 1307 Age: 45 Sex: Female MR#: [id number] Loc: RADIOLOGY REPORT Order #[id number] [facility] Andrew Bilat Screening 3D Signed - MG [...] 03/26/2019 mammogram,12/06/2017 mammogram, and 04/10/2017 mammogram - [facility]. BREAST TISSUE: The tissue of both [...] age 40, based on guidelines of the [place] [employer] (ACR Practice Parameter for the Performance of Screening and Diagnostic Mammography) and [place] [employer]. For women with an elevated risk of breast cancer, pleaserefer to the ACR Practice Parameter for specific screening recommendations. The patient will be entered into a reminder system with a target due dateof 1 year for her next screening exam. Electronically signed by: Vlad Gotti rl/sofy:07/13/2020 14:00:31 Roving Frame Tender: Gabriela SHINE(Nadeen)(M), [facility] letter sent: Normal Exam Reading location: BI-RADS: 1 Negative REPORT ELECTRONICALLY SIGNED IN OTHER VENDOR SYSTEM Alexandra Tobias MD IMG MAMMO PROCEDURES Final Result * PAP SMEAR WITH HPV (10/25/2016) Pap smear Normal Historical Provider HEALTH MAINTENANCE Final Result from Last 3 Months or Most Recently Relevant to Health Maintenance Insurance [facility] CHOICE PLUS [facility] CHOICE PLUS [facility] CHOICE PLUS Member Subscriber Plan / Payer (Ef fective 2020-Present) Name:Pattie Prince Relation to Subscriber:Spouse Name:ENE PRINCE Payer ID:[id number] (NAIC) Group ID:Not on file Type:[facility] HMO/PPO Address: [place] [phone] Care Teams Lpn Instructor Relationship Specialty Start Date End Date Alexandra Tobias MD [address] [place], [place] [id number] PCP - General 03/26/19 Viki Guardado MD [address] [place] [address] Consulting Physician Family Medicine 02/16/19
--- OUTSIDE RECORDS SUMMARY | 2025-02-23 19:03 | XMS_ITS | Encounter Summary ---
Author Organization [facility] Care Team Providers Care Police Investigator Name Role Phone Viki Guardado MD Primary Care Provi opal Monserrat Castro Unavailable [phone] Monserrat Castro Primary Care Provider [phone] Monserrat Castro Primary Care Provider [phone] Viki Guardado MD Unavailable [phone] Alexandra Tobias MD Primary Care Provider [phone] Encounter Details Date Type Department Care Team (Latest Contact Info) Description 03/15/2017 Orders Only [facility]INCON[facility] ProviderAngus MD [address] [place] [id number] Social History Tobacco Use Types Packs/Day Years Used Date Smoking Tobacco: Never Comments Unknown Sex and Gender Information Value Date Recorded Sex Assigned at Not on file Legal Sex Female 7:03 AM DATA PROCESSING SYSTEMS PROJECT PLANNER Gender Identity Not on file Sexual Orientation Not on file documented as of this encounter Plan of Treatment Not on file documented as of this encounter Procedures Procedure Name Priority Date/Time Associated Diagnosis Comments COLONOSCOPY - SCAN 03/14/2017 12 :00 AM DATA PROCESSING SYSTEMS PROJECT PLANNER documented in this encounter Results * COLONOSCOPY - SCAN (03/14/2017 12:00 AM DATA PROCESSING SYSTEMS PROJECT PLANNER) Narrative 03/14/2017 12:00 AM DATA PROCESSING SYSTEMS PROJECT PLANNER Ordered by an unspecified provider. us Historical Provider Final Res ult documented in this encounter Visit Diagnoses Not on filedocumented in this encounter Care Teams Police Investigator Relationship Specialty Start Date End Date Viki Guardado MD [address] [facility] [address] PCP - General Family Medicine 07/22/18 07/31/18 Monserrat Castro PA [address] [facility] [address] PCP - General Critical Care Med 08/14/18 03/25/19 Monserrat Castro PA [address] [facility] [address] PCP - General 08/01/18 08/13/18 Alexandra Tobias MD [address] [facility] [address] PCP - General 03/26/19 Monserrat Castro PA [address] [facility] [address] Physician Electric Blanket Wirer Critical Care Med 07/22/18 02/15/19 Viki Guardado MD [address] [place] [address] Consulting Physician Family Medicine 02/16/19 documented as of this encounter
--- OUTSIDE RECORDS SUMMARY | 2025-02-23 19:04 | XMS_ITS | Patient Health Record ---
Author Organization [employer] Address [address] Romero[address] [place] [address] Care Team Providers Care Director Of Intercollegiate Athletics Name Role Phone Alexandra Tobias MD Primary [...] Notes Problem Irritable bowel syndrome with diarrhea (806216602) Irritable bowel syndrome with diarrhea (K58.0) Active [...] in 2022 for colonoscopy. Problem Abdominal bloating (576112225) Abdominal bloating (R14.0) Active confirmed Pattie is n ow on a Mediterranean diet and seeing improvement with her bloating and inflammation related to fibromyalgia. She tested negative for SIBO recently. Other considerations include IBS, food intolerances, lactose intolerance, fructose intolerance, gynecologic etiology, and others. Problem Gastroesophageal reflux disease (631319764) Gastroesophageal reflux disease, unspecified whether esophagitis present [...] Insured Coverage Start Date Coverage End Date [facility] Choice/ choice Plus E2 [address] [place] [address] [id number] Delta Prince Spouse - patient is the spouse of the insured Medical (General) History Medical History History ICD Code IBS GERD Pancreatitis Colon Polyps Migraines Surgical History Surgery Date(Month/Year) Endoscopy (Outside Provider) 07/2019 Colonoscopy (Outside Provider) 02/2017 Cholecystectomy Uterine Ablation Right Knee Arthroscopy x2 Hospitalization History Reason Date(Month/Year) Pancreatitis 01/2021 Pancreatitis 03/2005 Fractured bones 07/2008 Anaphylaxis-penicillin
--- OUTSIDE RECORDS SUMMARY | 2025-02-23 19:04 | XMS_ITS | Clinical Summary ---
Author Organization [employer] Address [address] [place] [address] Care Team Providers Care Medical Radiation Therapist Name Role Phone Dariel Rahman MD Primary [...] daily. Active fluticasone propionate (FLONASE) 50 mcg/spray Milton, Suspension nasal inhaler Administer 2 Sprays in [...] Active sodium chloride (OCEAN) 0.65 % Aerosol, Milton Administer 1 Milton in each nostril PRN for Allergies. Active [...] 30 mg 20 Tablet 03/30/2023 1:13 PM ASSISTANT COUNTY ENGINEER 03/28/19 24 Active gabapentin (Neurontin) 300 mg capsule Take 1 Capsule (300 mg) by mouth 2 times daily. 30 Capsule 03/30/2023 1:13 PM ASSISTANT COUNTY ENGINEER 03/28/19 Active Syringe with Needle, Disp, (BD Luer-Akshat Syringe) 3 mL 25 x 5/8 Syringe Use as directed for subcutaneous heparin injections. 14 Each 03/30/2023 1:13 PM ASSISTANT COUNTY ENGINEER 03/28/19 24 Active Social History Tobacco Use [...] on file Legal Sex Female 4:22 AM ASSISTANT COUNTY ENGINEER Gender Identity Not on file Sexual Orientation Not on file Last Filed Vital Signs Vital Sign Reading Time Taken Comments Blood Pressure 98/48 03/31/2023 8:58 AM ASSISTANT COUNTY ENGINEER Pulse 96 03/31/2023 8:58 AM ASSISTANT COUNTY ENGINEER Temperature 36.8 C (98.3 F) 03/31/2023 8:58 AM ASSISTANT COUNTY ENGINEER Respiratory Rate 19 03/31/2023 8:58 AM ASSISTANT COUNTY ENGINEER Oxygen Saturation 89% 03/31/2023 8:58 AM ASSISTANT COUNTY ENGINEER Inhaled Oxygen Concentration - - Weight 75.8 kg (167 lb) 03/28/2023 5:53 AM ASSISTANT COUNTY ENGINEER Height 163.2 cm (5' 4.25) 03/22/2023 10:[address] Body Mass Index 28.44 03/22/2023 10:44 AM ASSISTANT COUNTY ENGINEER Plan of Treatment Health Maintenance Due Date Last Done Comments HEPATITIS B VACCINES (1 of 3 - 19+ 3-dose series) 02/08/1996 HPV/Cotest (21-29) 1998 CERVICAL CANCER SCREENING 2007 HPV/Cotest (30-65) 2007 PAP SMEAR 2007 BREAST CANCER SCREENING 07/13/2021 07/14/19, 03/26/2019, 12/06/2017, Additional history exists COLORECTAL SCREENING [...] Group ID:[id number] Type:RX Commercial Address: BRYAN ANGUIANO [employer] [facility] [address] Advance Directives For more information, please contact: [phone] * Full Code (Latest Code Status on File) Date Activated Date Inactivated Comments 03/28/2023 3:07 PM 03/31/2023 6:08 PM Care Teams Medical Radiation Therapist Relationship Specialty Start Date End Date Dariel Rahman MD PCP - General 05/15/12 Brenda Goddard [address], [place] [address] 03/19/23
--- OUTSIDE RECORDS SUMMARY | 2025-02-23 19:04 | XMS_ITS | Patient Health Record ---
Author Organization [facility] [employer] [facility] Address [address] [place] [address] Care Team Providers Care Entertainment Production Professional Name Role Phone Brenda GUERRERO DO Primary Care Provider Elisa Stephens Unavailable [phone] Shelly Suarez Unavailable [phone] Ysabel Farr Unavailable [phone] Allergies Allergen (clinical drug ingredient) Drug/Non Drug [...] SLYND 4 MG (28) TABLET *Reorder from [employer] for eRx and Interaction Alerts* 08/02/2023 Active Naltrexone *Pick strength-form from [facility] for eRX* 08/02/2023 Active Pantoprazole Sodium 20 [...] decision-maker Yes Do you have Power of Direct Chill Caster for Health or [facility]? No Safety issues: Are there any firearms [...] employed?: Yes Who is your employer?: [employer] Marriage and Sexuality What is your relationship status?: Are you sexually active?: Yes Do you use protection during sex?: No How many children do you have?: 2 Home and Environment Are there any guns present in your home?: Yes Advance Directive Do you have an advance directive?: Yes Do you have a medical power of patent attorney?: No Social History Substance Use Do [...] employed?: Yes Who is your employer?: [employer] What is your relationship status?: Are you sexually active?: Yes Do you use protection during sex?: No How many children do you have?: 2 Home and Environment Are there any guns present in your home?: Yes Advance Directive Do you have an advance directive?: Yes Do you have a medical power of patent attorney?: No Social History Substance Use Do [...] Do you have a medical power of patent attorney?: No Substance Use Do you or [...] employed?: Yes Who is your employer?: [employer] What is your relationship status?: Are you sexually active?: Yes Do you use protection during sex?: No How many children do you have?: 2 Home and Environment Are there any guns present in your home?: Yes Advance Directive Do you have an advance directive?: Yes Do you have a medical power of patent attorney?: No Substance Use Do you or [...] employed?: Yes Who is your employer?: [employer] What is your relationship status?: Are you sexually active?: Yes Do you use protection during sex?: No How many children do you have?: 2 Home and Environment Are there any guns present in your home?: Yes Advance Directive Do you have an advance directive?: Yes Do you have a medical power of patent attorney?: No Social History Substance Use Do [...] employed?: Yes Who is your employer?: [employer] What is your relationship status?: Are you sexually active?: Yes Do you use protection during sex?: No How many children do you have?: 2 Home and Environment Are there any guns present in your home?: Yes Advance Directive Do you have an advance directive?: Yes Do you have a medical power of patent attorney?: No Substance Use Do you or [...] employed?: Yes Who is your employer?: [employer] Sex[employer] What is your relationship status?: Are you sexually active?: Yes Do you use protection during sex?: No How many children do you have?: 2 Home and Environment Are there any guns present in your home?: Yes Advance Directive Do you have an advance directive?: Yes Do you have a medical power of patent attorney?: No Social History Substance Use Do [...] Do you have a medical power of patent attorney?: No Social History Substance Use Do [...] Do you have a medical power of patent attorney?: No Problems Problem Type SNOMED Code ICD Code Onset Dates Problem Status W/U Status Risk Notes Problem Chronic posttraumatic stress disorder (117796939) Chronic posttraumatic stress disorder (F43.12) Active confirmed Problem Attention deficit hyperactivity disorder (304575889) ADHD (attention deficit hyperactivity disorder), combined type (F90.2) Active confirmed Problem Chronic insomnia (796052671) Chronic insomnia (F51.04) Active confirmed Problem Disturbance of attention (finding) (89085563) Attention disturbance (R41.840) Active confirmed Problem 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 Problem Recurrent major depression (66873850) Major depressive disorder, recurrent, in remission (F33.40) Active confirmed Vital Signs Heart Rate 87 /min 11/03/2024 Height-cm 162.56 cm 11/03/2024 Blood pressure diastolic 80 mm Hg 11/03/2024 Weight-kg 86.09 kg 11/03/2024 Height 64.00 in 11/03/2024 Blood pressure systolic 118 mm Hg 11/03/2024 Weight 189.8 lbs 11/03/2024 BMI 32.58 kg/m2 11/03/2024 Encounters Encounter Location Date Provider Diagnosis [facility] [address] [facility] [address] [place] [address] 02/28/2024 Shelly Suarez Major depressive disorder, recurrent, moderate F33.1 ; Chronic posttraumatic stress disorder F43.12 and ADHD (attention deficit hyperactivity disorder), combined type F90.2 [facility] [address] [facility] [address] [place] [address] 03/24/2024 Shelly Cuevasman Major depressive disorder, recurrent, moderate F33.1 ; Chronic posttraumatic stress disorder F43.12 and ADHD (attention deficit hyperactivity disorder), combined type F90.2 [facility] [address] [facility] [address] [place] [address] 04/07/2024 Shelly Suarez [facility] [address] [address] 05/12/2024 Ysabel Farr Chronic posttraumati c stress disorder F43.12 ; Major depressive disorder, recurrent, in remission F33.40 ; ADHD (attention deficit hyperactivity disorder), combined type F90.2 ; Chronic insomnia F51.04 and Inherited disorder of folate metabolism E88.89 [facility] [address] [address] 11/03/2024 Ysabel Farr Chronic posttraumati c stress disorder F43.12 ; Major depressive disorder, recurrent, in remission F33.40 ; ADHD (attention deficit hyperactivity disorder), combined type F90.2 ; Chronic insomnia F51.04 and Inherited disorder of folate metabolism E88.89 [facility] [address] [address] 04/07/2024 [facility] [place] [address] [address] 07/08/2024 Ysabel Farr Major depressive disorder, recurrent, in remission F33.40 [facility] [address] [address] 11/03/2024 Ysabel Farr Assessments Encounter Date Diagnosis (ICD Code) Assessment Notes Treatment Notes Treatment Clinical Notes Section Notes 02/28/2024 Major depressive disorder, recurrent, moderate (ICD-10 [...] needed) - Encourage good sleep hygiene and non-pharmacologi jaden methods for sleep improvement, including meditation and [...] needed) - Encourage good sleep hygiene and non-pharmacologi jaden methods for sleep improvement, including meditation and [...] needed) - Encourage good sleep hygiene and non-pharmacologi jaden methods for sleep improvement, including meditation and [...] posttraumatic stress disorder (ICD-10 - F43.12) 02/28/2024 ADHD (attention deficit hyperactivity disorder), combined [...] needed) - Encourage good sleep hygiene and non-pharmacologi jaden methods for sleep improvement, including meditation and [...] needed) - Encourage good sleep hygiene and non-pharmacologi jaden methods for sleep improvement, including meditation and [...] arise, to assess progress and medication management 02/28/2024 Other Client reports she and are talking about divorce. continues to drink and yet hide behind his spiritism to deny he has a problem with alcohol. Client's anxiety and depression are noticeable due to his behaviors. Therapist actively listened to client and utilized a cognitive behavioral intervention to help client explore strategies to minimize depression and anxiety. PHQ=8 mild LUPE=7 mild 03/24/2024 Other Client reports she has talked to an patent attorney, as a consult, about starting the [...] implemented strategies such as working with a curriculum coach on boundaries and making backup plans. [...] of folate metabolism, currently managed with Deplin (L-methylfolate) . Plan: - Continue Deplin - Assess need for refill (patient unsure of current supply, typically receives 90-day supply) Safety concerns Assessment: Patient reports feeling safe at home most of the time but expresses fear when her is intoxicated. She recounts a recent incident on 's Day where she called the police due [...] 05/05/2025 01:45:00 PM, [address], [facility] [address], [place], [address], Insurance Providers Payer Name Payer Address Payer Phone Subscriber Number Group Number Insured Name Patient Relationship to Insured Coverage Start Date Coverage End Date [facility] [address] [place] [address] [id number] PATTIE GARCIA Self - patient is the insured Medical (General) History Medical History History ICD Code Problems: Chronic insomnia Disturbance of attention Inherited disorder of folate metabolism Moderate recurrent major depression Past Psychiatric History: Panic Disorder ,PTSD undefined chronic fatigue syndrome vitamin D deficiency Surgical History Surgery Date(Month/Year) Other right and left knee scope Breast surgery (02905) reduction 024 Removal of gallbladder (77549) 0 Endometrial ablation (03774) 02/25/2017
--- OUTSIDE RECORDS SUMMARY | 2025-02-23 19:04 | XMS_ITS | Clinical Summary ---
Author Organization [facility] Address [address] [place] [address] Care Team Providers Care Health Screener Name Role Phone Alexandra Tobias MD Primary Care Provider [phone] Allergies Active Allergy Reactions Criticality Noted Date [...] to maintain pain control General Chelo Mejia, CRANIOLOGISTlie detector operator [facility] * Guarantor: Pattie Prince Account Type Relation to Patient Date of Phone Billing Address Personal/Family Self 1975 [address] [place] [address] Advance Directives * Full Code (Latest Code Status on File) Date Activated Date Inactivated Comments 01/18/2021 7:18 PM 01/20/2021 7:40 PM Care Teams Health Screener Relationship Specialty Start Date End Date Alexandra Tobias MD [address] [place] [address] PCP - General INTERNAL MEDICINE 01/18/21
--- OUTSIDE RECORDS SUMMARY | 2025-02-23 19:04 | XMS_ITS | Encounter Summary ---
Author Organization [facility] Care Team Providers Care Propagation Worker Name Role Phone Viki Guardado MD Primary Care Provi opal Monserrat Castro Unavailable [phone] Monserrat Castro Primary Care Provider Monserrat Castro Primary Care Provider [phone] Viki Guardado MD Unavailable [phone] Alexandra Tobias MD Primary Care Provider [phone] Encounter Details Date Type Department Care Team (Latest Contact Info) Description 12/24/2017 Orders Only [facility]IN[facility] Provider, MD Angus [address] [place] [address] Social History Tobacco Use Types Packs/Day Years Used Date Smoking Tobacco: Never Comments Unknown Sex and Gender Information Value Date Recorded Sex Assigned at Not on file Legal Sex Female 7:03 AM EXPELLER WORKER Gender Identity Not on file Sexual Orientation [...] on filedocumented in this encounter Care Teams Propagation Worker Relationship Specialty Start Date End Date Viki Guardado MD [address] [place] [address] PCP - General Family Medicine 07/22/18 07/31/18 Monserrat Castro PA [address] [place] [address] PCP - General Critical Care Med 08/14/18 03/25/19 Monserrat Castro PA [address] [place] [address] PCP - General 08/01/18 08/13/18 Alexandra Tobias MD [address] [place] [address] PCP - General 03/26/19 Monserrat Castro PA [address] [place] [address] Physician Customer Care Representative Critical Care Med 07/22/18 02/15/19 Viki Guardado MD [address] [place] [address] Consulting Physician Family Medicine 02/16/19 documented as of this encounter
--- OUTSIDE RECORDS SUMMARY | 2025-02-23 19:04 | XMS_ITS | Encounter Summary ---
Author Organization [email or web address] Address [address] [place] [address] Care Team Providers Care Fine Chemicals Operator Name Role Phone Dariel Rahman MD Primary Care Prov ider Unavailable Encounter Details Date Type Department Care Team (Late st Contact Info) Description 02/23/[address] [facility] [address] [facility] [address] [place] [address] Franko Borja Social History Tobacco Use Types Packs/Day Years Used Date Smoking Tobacco: Never Assessed Comments Unknown Sex and Gender Information Value Date Recorded Sex Assigned at Not on file Legal Sex Female 4:22 AM RESEARCH ASSOCIATE MOLECULAR BIOLOGY Gender Identity Not on file Sexual Orientation Not on file documented as of this encounter Plan of Treatment Not on file documented as of this encounter Visit Diagnoses Not on filedocumented in this encounter Care Teams Fine Chemicals Operator Relationship Specialty Start Date End Date Dariel Rahman MD PCP - General 05/15/12 Brenda Goddard [address] [facility] [address], [place] [address] 03/19/23 documented as of this encounter
--- OUTSIDE RECORDS SUMMARY | 2025-02-23 19:04 | XMS_ITS | Clinical Summary ---
Author Organization [facility] Address [address] [facility] [place] [address] Care Team Providers Care Retail Chain Store Area Supervisor Name Role Phone Unavailable Primary Care Provider Unavailabl e Social History Tobacco Use Types Packs/Day Years Used Date Smoking Tobacco: Never Assessed Comments Unknown Sex and Gender Information Value Date Recorded Sex Assigned at Not on file Legal Sex Female 5:33 PM EDT Gender Identity Not on file Sexual Orientation Not on file Plan of Treatment Not on file Medical Devices Not on file Insurance
--- OUTSIDE RECORDS SUMMARY | 2025-02-23 19:04 | XMS_ITS | Encounter Summary ---
Author Organization [facility] Address [address] [place] [address] Phone Care Team Providers Care Marine Pipefitter Name Role Phone Viki Guardado MD Unavailable [phone] Alexandra Tobias MD Primary Care Provider [phone] Encounter Details Date Type Department Care Team [...] on file Legal Sex Female 7:03 AM RECREATION FACILITIES SUPERVISOR Gender Identity Not on file Sexual Orientation [...] on filedocumented in this encounter Care Teams Marine Pipefitter Relationship Specialty Start Date End Date Alexandra Tobias MD [address] [place] [address] PCP - General 03/26/19 Viki Guardado MD [address] [place], [place] [address] Consulting Physician Family Medicine 02/16/19 documented as of this encounter
[2025-02-23] MEDS: ASPIRIN 81 MG CHEWABLE TABLET 324 MG PO (19:24)
[2025-02-23] MEDS: ONDANSETRON INJ 4 MG/2 ML VIAL IV PUSH (19:24)
[2025-02-23] MEDS: LACTATED RINGERS 1,000 ML 999 ML IV CONT (19:24)
[2025-02-23 20:00] VITALS: BP 148/75; PULSE 104; RESP 12; O2SAT 100
--- NOTE | 2025-02-23 20:30 | PC.NURSE ---
pt will be d/c once her fluids are finished. approx 200 mL in the bag at this time
[2025-02-23 20:53] VITALS: BP 122/78; PULSE 105; RESP 14; O2SAT 100
== END 2025-02-23 20:55 | disposition home or self-care (01) ==
PROVIDERS: Emergency Medicine; Physician Assistant; Emergency Provider Emergency Medicine; PCP Family Medicine
DX: R00.0 Tachycardia, unspecified (principal); R11.0 Nausea; E78.5 Hyperlipidemia, unspecified; K58.9 Irritable bowel syndrome, unspecified; K21.9 Gastro-esophageal reflux disease without esophagitis; F41.9 Anxiety disorder, unspecified; Z90.49 Acquired absence of other specified parts of digestive tract; Z96.653 Presence of artificial knee joint, bilateral; Z79.899 Other long term (current) drug therapy; Z79.3 Long term (current) use of hormonal contraceptives
CPT/HCPCS: 36415; 71046; 80053; 83690; 83735; 84443; 84484; 85025; 85380; 85610; 85730; 93005; 96361; 96374; 99284; A9270; J2405; J7120